=== PATIENT | female | born 1975 | race Caucasian/White ===

== ENCOUNTER 2020-06-01 12:15 | Outpatient (CLI) | payer MEDICAID | END 2020-06-01 12:16 | disposition home or self-care (01) | LOC: COV 12:15 | PROVIDERS: ATTEND Family Medicine | DX: U07.1 COVID-19 (principal) ==

== ENCOUNTER 2020-06-04 14:25 | Emergency (ER) | payer MEDICAID ==
--- NOTE | 2020-06-04 14:31 | ED Physician Documentation ---
PD HPI FEMALE - Stated complaint Stated Complaint: FEMALE - History obtained from History obtained from: Patient - History of Present Illness Timing - onset: How many days ago (2) Timing - duration: Days (2) Timing - details: Gradual onset, Still present Associated symptoms: Fever (subjective last night), Other (has had cough for 4 days. Got COVID tested and positive result 3 days ago.) Contributing factors: Other (visiting her boyfriend; flew in 7 days ago, with cough 4 days ago and now dysuria 2 days.). No: Similar symptoms before: Diagnosis (prior UTIs. Has history of polycystic kidney disease with impaired renal function, baseline GFR 35-45?) Recently seen: Not recently seen Review of Systems Constitutional: reports: Fever, Chills Nose: denies: Rhinorrhea / runny nose, Congestion Throat: denies: Sore throat Cardiac: denies: Chest pain / pressure Respiratory: reports: Cough. denies: Dyspnea, Wheezing GI: reports: Nausea. denies: Abdominal Pain, Vomiting, Diarrhea : reports: Dysuria, Frequency. denies: Discharge Skin: denies: Rash Neurologic: denies: Altered mental status, Headache PD PAST MEDICAL HISTORY - Past Medical History Cardiovascular: None Respiratory: None : Other (polycystic kidneys) - Present Medications Home Medications: Ambulatory Orders Medication Instructions Recorded Confirmed Cephalexin [Keflex] 500 mg PO Q6H #28 capsule 06/04/20 Ondansetron Odt [Zofran] 4 mg TL Q6H PRN #10 tablet 06/04/20 - Allergies Allergies/Adverse Reactions: Allergies Allergy/AdvReac Type Severity Reaction Status Date / Time Latex, Natural Rubber Allergy Itching Verified 06/04/20 14:31 - Living Situation Living Situation: reports: Alone Living Arrangement: reports: Other (lives in [place] and visiting her boyfriend. Flew in 1 week ago. [place] okay prior to travel and the first few days here. ) PD ED PE NORMAL - Vitals Vital signs reviewed: Yes - General General: Alert and oriented X 3, No acute distress, Well developed/nourished - HEENT HEENT: Moist mucous membranes, Pharynx benign - Neck Neck: Supple, no meningeal sign, No adenopathy - Cardiac Cardiac: RRR (mild tachycardia. Sats good. ), No murmur - Respiratory Respiratory: Clear bilaterally - Abdomen Abdomen: Normal bowel sounds, Soft, Non tender, Non distended - Back Back: No CVA TTP - Derm Derm: Normal color, Warm and dry - Extremities Extremities: No tenderness to palpate, Normal ROM s pain, No edema, No calf tenderness / cord - Neuro Neuro: Alert and oriented X 3, No motor deficit, Normal speech Results - Vitals Vitals: Vital Signs - 24 hr 06/04/20 06/04/20 14:31 16:28 Temperature 37.6 C H Heart Rate 106 H 92 Respiratory 16 18 Rate Blood Pressure 136/98 H 149/98 H O2 Saturation 97 98 Oxygen O2 Source Room air - Labs Labs: Laboratory Tests 06/04/20 06/04/20 06/04/20 14:45 15:35 15:35 WBC 11.6 H RBC 4.50 Hgb 12.3 Hct 38.5 MCV 85.6 MCH 27.3 MCHC 31.9 L RDW 15.3 H Plt Count 222 MPV 10.1 Neut # (Auto) 9.4 H Lymph # (Auto) 1.4 L [place] # (Auto) 0.8 Eos # (Auto) 0.0 Baso # (Auto) 0.1 Absolute Nucleated RBC 0.00 Nucleated RBC % 0.0 Sodium 135 Potassium 3.7 Chloride 100 L Carbon Dioxide 24 Anion Gap 11.0 BUN 17 Creatinine 1.3 H Estimated GFR (MDRD) 44 L Glucose 135 H Calcium 9.4 Urine Color YELLOW Urine Clarity CLOUDY Urine pH 6.0 Ur Specific [place] 1.020 Urine Protein >=300 H Urine Glucose (UA) NEGATIVE Urine Ketones NEGATIVE Urine Occult Blood LARGE H Urine Nitrite POSITIVE H Urine Bilirubin NEGATIVE Urine Urobilinogen 0.2 (NORMAL) Ur Leukocyte Esterase LARGE H Urine RBC 0-5 Urine WBC >25 H Ur Squamous Epith Cells NONE SEEN Urine Bacteria Moderate H Ur Microscopic Review INDICATED Urine Culture Comments INDICATED PD MEDICAL DECISION MAKING - ED course Complexity details: considered differential, d/w patient Departure - Departure Disposition: 01 Home, Self Care Clinical Impression: Dysuria, UTI (urinary tract infection) Condition: Stable Record reviewed to determine appropriate education?: Yes Instructions: ED UTI Cystitis Female Prescriptions: Cephalexin [Keflex] 500 mg PO Q6H #28 capsule Ondansetron Odt [Zofran] 4 mg TL Q6H PRN #10 tablet PRN Reason: Nausea / Vomiting Comments: Your urine does show signs of infection and so is consistent with your symptoms. Your kidney function is that sounding far off from your baseline. Stay well- hydrated. Cephalexin antibiotic 4 times a day for a week for the infection. Tylenol if needed for fevers or pains. Add ondansetron if needed for nausea. Your oxygenation is good and your lungs sound clear so no signs of pneumonia at this time. The urine and vaginal cultures will result in a couple of days and will call if we need to change the antibiotic choice. Recheck if not improving well over the next couple of days. Return sooner if worsening. Discharge Date/Time: 06/04/20 16:29
[2020-06-04 15:01] LABS: BILIRUBIN,URINE NEGATIVE (NEGATIVE); GLUCOSE, URINE (UA) NEGATIVE (NEGATIVE); KETONES,URINE (UA) NEGATIVE (NEGATIVE); LEUKOCYTE ESTERASE, URINE LARGE (NEGATIVE); NITRITE,URINE POSITIVE (NEGATIVE); OCCULT BLOOD,URINE LARGE (NEGATIVE); PROTEIN,URINE >=300 mg/dL (NEGATIVE); UROBILINOGEN,URINE 0.2 (NORMAL) E.U./dL (NORMAL)
[2020-06-04 15:02] LABS: CLARITY,URINE CLOUDY (CLEAR)
[2020-06-04] MEDS ORDERED: ACETAMINOPHEN 325 MG TABLET PO STA (15:10)
[2020-06-04] MEDS ORDERED: cephALEXin 250 MG CAPSULE PO STA (15:10)
[2020-06-04 15:20] LABS: BACTERIA,URINE Moderate /HPF (None Seen); RBC,URINE 0-5 /HPF (0-5); SQUAMOUS EPITHELIAL CELL,UR NONE SEEN (<= Few)
[2020-06-04 15:43] LABS: BASOPHILS # (AUTO) 0.1 10^3/uL (0.0-0.1); BASOPHILS % (AUTO) 0.4 %; EOSINOPHILS % (AUTO) 0.1 %; HGB - HEMOGLOBIN 12.3 g/dL (12.0-16.0); LYMPHOCYTES # (AUTO) 1.4 10^3/uL (1.5-3.5); LYMPHOCYTES % (AUTO) 11.7 %; MEAN CORPUSCULAR HEMOGLOBIN 27.3 pg (27.0-31.0); MEAN CORPUSCULAR HGB CONC 31.9 g/dL (32.0-36.0); MEAN CORPUSCULAR VOLUME 85.6 fL (81.0-99.0); MEAN PLATELET VOLUME 10.1 fL (7.9-10.8); MONOCYTES # (AUTO) 0.8 10^3/uL (0.0-1.0); MONOCYTES % (AUTO) 6.6 %; NEUTROPHILS # (AUTO) 9.4 10^3/uL (1.5-6.6); NEUTROPHILS % (AUTO) 80.7 %; PLT - PLATELET COUNT 222 10^3/uL (130-450); RED CELL DISTRIBUTION WIDTH 15.3 % (12.0-15.0); WHITE BLOOD COUNT 11.6 x10^3/uL (4.8-10.8)
[2020-06-04 15:52] LABS: CALCIUM 9.4 mg/dL (8.5-10.3); CREATININE 1.3 mg/dL (0.4-1.0)
[2020-06-04 16:29] VITALS: BP 149/98
== END 2020-06-04 16:29 | disposition home or self-care (01) ==
LOC: ED 14:25
DX: N39.0 Urinary tract infection, site not specified (principal)
CPT/HCPCS: 36415; 80048; 81001; 85025; 87086; 87181; 99283; A9270; 81003; 87491; 87591; 87661; 87801

== ENCOUNTER 2020-06-09 16:39 | Inpatient (IN) | payer MEDICAID ==
[2020-06-09] MEDS ORDERED: SODIUM CHLORIDE 0.9% 1,000 ML IV STA ×2 (18:53→19:18)
--- NOTE | 2020-06-09 18:53 | ED Physician Documentation ---
History of Present Illness - Stated complaint Stated Complaint: RT FLANK PX - Chief complaint Chief Complaint: Abd Pain - History obtained from History obtained from: Patient - Additonal information Additional information: 44-year-old female presents to the emergency department for evaluation of worsening right flank pain. She was unfortunately diagnosed with COVID-19 on 01 June. She presented to this emergency department on 04 June and was diagnosed with a urinary tract infection. She was started on Keflex twice daily which she has been taking. Urine culture grew a pansensitive E. coli. Patient reports that over the last 24 hours she feels that her urinary symptoms have started to worsen with pain in the right flank. She is concerned that she may be developing pyelonephritis. She has had intermittent fevers. T-max of 38 0 here in the emergency department. She is had some nausea but no vomiting or diarrhea. Review of Systems Constitutional: reports: Fever, Chills, Myalgias Eyes: reports: Reviewed and negative Ears: reports: Reviewed and negative Nose: reports: Reviewed and negative Throat: reports: Reviewed and negative Cardiac: reports: Reviewed and negative Respiratory: reports: Cough. denies: Dyspnea, Hemoptysis, Wheezing GI: reports: Abdominal Pain. 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) HEENT: None - Present Medications Home Medications: Ambulatory Orders Medication Instructions Recorded Confirmed Cephalexin [Keflex] 500 mg PO Q6H #28 capsule 06/04/20 Ondansetron Odt [Zofran] 4 mg TL Q6H PRN #10 tablet 06/04/20 - Allergies Allergies/Adverse Reactions: Allergies Allergy/AdvReac Type Severity Reaction Status Date / Time Latex, Natural Rubber Allergy Itching Verified 06/04/20 14:31 Ringer's solution,lactated Allergy Unknown Verified 06/09/20 16:55 - Social History Does the pt smoke?: No Smoking Status: Never smoker PD ED PE EXPANDED - General General: Alert, No acute distress - Neck Neck: Supple w/out meningeal sx. No: Adenopathy, Soft tissue TTP - Cardiac Cardiac: Regular Rate, Radial strong equal, Cap refill < 2 sec. No: Murmur Present - Abdomen Abdomen: Normal Bowel sounds, Tender to palpation (Right flank tenderness without guarding or rebound. Negative Zimmerman's negative McBurney's. No CVA tenderness) - Back Back: Normal exam, Soft tissue tenderness. No: Vertebral tenderness, CVA TTP right, CVA TTP left - Derm Derm: Normal color. No: Rash, Petecchiae, Purpura - Extremities Extremities: Normal - Neuro Neuro: Alert and Oriented X 3, CNII-XII intact - GCS Eye Opening: Spontaneous Motor: Obeys Commands Verbal: Oriented Total: 15 Results - Vitals Vitals: Vital Signs - 24 hr 06/09/20 06/09/20 06/09/20 16:51 18:49 20:00 Temperature 36.1 C L 38.0 C H Heart Rate 104 H 100 97 Respiratory 16 18 18 Rate Blood Pressure 127/75 155/98 H 125/74 O2 Saturation 98 100 100 06/09/20 21:15 Temperature 38.6 C H Heart Rate 99 Respiratory 18 Rate Blood Pressure 126/79 O2 Saturation 100 Oxygen O2 Source Room air - Labs Labs: Laboratory Tests 06/09/20 06/09/20 06/09/20 18:36 18:36 18:45 WBC 13.7 H RBC 4.34 Hgb 12.2 Hct 36.8 L MCV 84.8 MCH 28.1 MCHC 33.2 RDW 14.6 Plt Count 258 MPV 10.0 Neut # (Auto) 10.8 H Lymph # (Auto) 1.8 [place] # (Auto) 0.9 Eos # (Auto) 0.0 Baso # (Auto) 0.1 Absolute Nucleated RBC 0.00 Nucleated RBC % 0.0 Sodium Potassium Chloride Carbon Dioxide Anion Gap BUN Creatinine Estimated GFR (MDRD) Glucose Calcium Total Bilirubin AST ALT Alkaline Phosphatase Total Protein Albumin Globulin Albumin/Globulin Ratio Lipase Urine Color YELLOW Urine Clarity HAZY Urine pH 6.0 Ur Specific [place] 1.010 1.010 Urine Protein 100 H Urine Glucose (UA) NEGATIVE Urine Ketones NEGATIVE Urine Occult Blood LARGE H Urine Nitrite NEGATIVE Urine Bilirubin NEGATIVE Urine Urobilinogen 0.2 (NORMAL) Ur Leukocyte Esterase LARGE H Urine RBC 11-25 H Urine WBC 6-10 H Ur Squamous Epith Cells RARE Squamous Urine Bacteria Rare Ur Microscopic Review INDICATED Urine Culture Comments INDICATED Urine HCG, Qual NEGATIVE 06/09/20 18:45 WBC RBC Hgb Hct MCV MCH MCHC RDW Plt Count MPV Neut # (Auto) Lymph # (Auto) [place] # (Auto) Eos # (Auto) Baso # (Auto) Absolute Nucleated RBC Nucleated RBC % Sodium 135 Potassium 3.6 Chloride 99 L Carbon Dioxide 23 Anion Gap 13.0 BUN 18 Creatinine 1.5 H Estimated GFR (MDRD) 37 L Glucose 111 H Calcium 8.9 Total Bilirubin 0.9 AST 35 ALT 40 Alkaline Phosphatase 75 Total Protein 7.8 Albumin 3.8 Globulin 4.0 Albumin/Globulin Ratio 1.0 Lipase 24 Urine Color Urine Clarity Urine pH Ur Specific [place]ine Urine Protein Urine Glucose (UA) Urine Ketones Urine Occult Blood Urine Nitrite Urine Bilirubin Urine Urobilinogen Ur Leukocyte Esterase Urine RBC Urine WBC Ur Squamous Epith Cells Urine Bacteria Ur Microscopic Review Urine Culture Comments Urine HCG, Qual - Rads (name of study) CT abd Radiology: Final report received (Polycystic renal disease. No hydronephrosis or obstructing nephrolithiasis, however periureteral fat stranding seen at the superior right ureter.) PD MEDICAL DECISION MAKING - ED course Complexity details: reviewed results, re-evaluated patient, considered differential, d/w patient ED course: 44-year-old female return to the emergency department with worsening fever right flank pain. This is in the setting of a recently diagnosed urinary tract infection as well as Covid 19. On repeat laboratory evaluation she has mild increase in her white blood cell count to 13.7 thousand today. Though her urine looks improved from the standpoint of infection, there is increased red blood cells and protein. At this time we will proceed with a CT noncontrast of her abdomen to rule out an infected renal stone. We will also give her 1 L of IV f luid for mild increase in her creatinine as well as give her IV ceftriaxone. 2145: CT scan has been completed. It does not show any obvious obstructing stones. However there is some fat stranding at the right superior ureter. This may represent a recently passed stone. While the patient has been here in the emergency department she has remained febrile and with rigors. This case was discussed with the hospitalist Dr. Alfaro. We will bring her in for further care and evaluation. Blood cultures and a lactic acid are pending. She has remained normotensive and without tachycardia. She does not appear to be in septic shock. She has previously been on antibiotics with Keflex for the last 4 days and did receive ceftriaxone earlier in her visit today. Departure - Departure Disposition: 66 [facility] DC/Xfer Clinical Impression: Pyelonephritis, Polycystic kidney disease, COVID-19
[2020-06-09 18:54] LABS: BILIRUBIN,URINE NEGATIVE (NEGATIVE); GLUCOSE, URINE (UA) NEGATIVE (NEGATIVE); KETONES,URINE (UA) NEGATIVE (NEGATIVE); LEUKOCYTE ESTERASE, URINE LARGE (NEGATIVE); NITRITE,URINE NEGATIVE (NEGATIVE); OCCULT BLOOD,URINE LARGE (NEGATIVE); PROTEIN,URINE 100 mg/dL (NEGATIVE); UROBILINOGEN,URINE 0.2 (NORMAL) E.U./dL (NORMAL)
[2020-06-09 18:55] LABS: BASOPHILS # (AUTO) 0.1 10^3/uL (0.0-0.1); BASOPHILS % (AUTO) 0.4 %; EOSINOPHILS % (AUTO) 0.1 %; HGB - HEMOGLOBIN 12.2 g/dL (12.0-16.0); LYMPHOCYTES # (AUTO) 1.8 10^3/uL (1.5-3.5); LYMPHOCYTES % (AUTO) 13.5 %; MEAN CORPUSCULAR HEMOGLOBIN 28.1 pg (27.0-31.0); MEAN CORPUSCULAR HGB CONC 33.2 g/dL (32.0-36.0); MEAN CORPUSCULAR VOLUME 84.8 fL (81.0-99.0); MONOCYTES # (AUTO) 0.9 10^3/uL (0.0-1.0); MONOCYTES % (AUTO) 6.2 %; NEUTROPHILS # (AUTO) 10.8 10^3/uL (1.5-6.6); NEUTROPHILS % (AUTO) 79.3 %; PLT - PLATELET COUNT 258 10^3/uL (130-450); RED BLOOD COUNT 4.34 10^6/uL (4.20-5.40); RED CELL DISTRIBUTION WIDTH 14.6 % (12.0-15.0); WHITE BLOOD COUNT 13.7 x10^3/uL (4.8-10.8)
[2020-06-09 18:56] LABS: CLARITY,URINE HAZY (CLEAR)
[2020-06-09 19:05] LABS: BACTERIA,URINE Rare /HPF (None Seen); HCG UR QUAL NEGATIVE; SQUAMOUS EPITHELIAL CELL,UR RARE Squamous (<= Few)
[2020-06-09 19:08] LABS: ALBUMIN 3.8 g/dL (3.2-5.5); BILIRUBIN,TOTAL 0.9 mg/dL (0.2-1.0); CALCIUM 8.9 mg/dL (8.5-10.3); CREATININE 1.5 mg/dL (0.4-1.0); TOTAL PROTEIN 7.8 g/dL (6.7-8.2)
[2020-06-09] MEDS ORDERED: cefTRIAXone 1 GM in SODIUM CHLORIDE 0.9% MINIBAG 100 ML IV STA (19:16)
[2020-06-09] MEDS ORDERED: cefTRIAXone 1 GM VIAL ONE (19:42)
[2020-06-09] MEDS ORDERED: ACETAMINOPHEN 325 MG TABLET PO STA (21:26)
--- NOTE | 2020-06-09 21:35 | CT Report ---
PROCEDURE: Abdomen/Pelvis WO INDICATIONS: right flank pain; r/o infected stone TECHNIQUE: Noncontrast 5 mm thick sections acquired from the diaphragms to the symphysis. 5 mm coronal and sagi ttal reformats were then performed. For radiation dose reduction, the following was used: automated exposure control, adjustment of mA and/or kV according to patient size. COMPARISON: None. FINDINGS: Image quality: Excellent. ABDOMEN: Lung bases: Mild airspace opacities are present at the right lung base. The lung bases are otherwise clear. Heart size is normal. Solid organs: Liver and spleen are normal in size. Gallbladder is unremarkable. Pancreas is normal in contours. No adrenal nodules. The bilateral kidneys are markedly enlarged and filled with low de nsity cystic lesions consistent with the given diagnosis of polycystic renal disease. Punctate calcif ications are noted throughout suggesting nonobstructing calculi or parenchymal calcifications. No hyd ronephrosis. No hydroureter; however there is mild periureteral fat stranding around the superior asp ect of the right ureter. Peritoneum and bowel: Unenhanced bowel loops demonstrate normal wall thickness and caliber. The appe ndix is thin-walled and gas-filled. No free fluid or air. Nodes and vessels: No retroperitoneal or mesenteric adenopathy by size criteria. Aorta and inferior vena cava are normal in caliber. Miscellaneous: No ventral hernias. PELVIS: Genitourinary: Bladder wall thickness is normal. No bladder calculi. Uterus and ovaries are grossly unremarkable. Miscellaneous: No inguinal hernias or adenopathy. Bones: No suspicious bony lesions. No vertebral body compression fractures. IMPRESSION: 1. Polycystic renal disease as above. 2. No hydronephrosis or obstructive nephrolithiasis; however periureteral fat stranding is present at the superior right ureter. The significance of this finding is unclear. Differential co nsiderations include recently passed calculus versus early infection. There are no bladder calculi to suggest recently passed stone. Please correlate with urinalysis. The bladder is thin-walled without findings to suggest acute cystitis. 3. No other acute intra-abdominal findings. Normal appendix. 4. Trace radiopacities within the right lung base. Differential considerations include atelectasis, a spiration, and infection. Reviewed by: Andra Jose MD on 06/09/2020 9:34 PM PST Approved by: Andra Jose MD on 06/09/2020 9:34 PM PST Station ID: [id number]
[2020-06-09] MEDS ORDERED: ONDANSETRON 4 MG/2 ML VIAL IVP PRN (21:53)
[2020-06-09] MEDS ORDERED: SODIUM CHLORIDE FLUSH 0.9% 10 ML SYRINGE IVP PRN (21:53)
--- NOTE | 2020-06-09 21:58 | HISTORY & PHYSICAL EXAMINATION ---
Chief Complaint - Chief Complaint Chief Complaint: Fever, right flank pain, UTI History of Present Illness - [facility] - History Obtained From Records Reviewed: Yes History obtained from: Patient - History of Present Illness HPI Comment/Other: Patient is a 44-year-old female with medical history significant for factor V Leiden, hypertension, and polycystic kidney disease who presented to the ED today with fever and right flank pain. She is visiting the area. 1 week ago she had presented to the emergency room with complaint of burning on urination, increased urinary frequency. She was diagnosed with a UTI which was subsequently confirmed by urinary cultures to be due to E. coli which was pansensitive. The patient was placed on Keflex and advised to return to the ED if her symptoms were not improving. She had taken Keflex for 4 days. On a separate note she was also diagnosed with Covid last week. Her symptoms have mostly been coughing and anosmia/ loss of appetite. She denies difficulty in breathing. At a follow-up call by the health department worker, she reported having a fever and has symptoms of UTI persisting. She was advised to go to the ED for evaluation. Upon presentation to the ED she was found to have a temperature of 38.6 C, white blood cell count of 13.7 and a UA which was indicative of a UTI. She also had a CT of the abdomen pelvis without contrast which showed some periureteral fat stranding on the right. As a result the patient was presented for admission for further treatment. At bedside currently she is resting comfortably. She denies chest pain, dyspne a, nausea, vomiting. She reports the right flank pain and fever. The rest of her history is unremarkable. 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 He also had factor V Leiden and DVT. Patient's mother has CLL Living Situation: Alone Social History Notes: Patient does not use tobacco products.. She rarely drinks alcohol. Generally she would use CBD or Meds/Allgy - Home Medications Home Medications: Ambulatory Orders Medication Instructions Recorded Confirmed Cephalexin [Keflex] 500 mg PO Q6H #28 capsule 06/04/20 Ondansetron Odt [Zofran] 4 mg TL Q6H PRN #10 tablet 06/04/20 - Allergies Allergies/Adverse Reactions: Allergies Allergy/AdvReac Type Severity Reaction Status Date / Time Latex, Natural Rubber Allergy Itching Verified 06/04/20 14:31 Ringer's solution,lactated Allergy Unknown Verified 06/09/20 16:55 Review of Systems - Constitutional Constitutional: reports: Fever, Poor appetite - Eyes Eyes: denies: Pain, Dipolpia - Ears, Nose & Throat Ears, Nose & Throat: reports: Other (anosmia) - Cardiovascular Cariovascular: denies: Irregular heart rate, Palpitations, Chest pain, Edema, Lightheadedness, Syncope, Exertional dyspnea - Respiratory Respiratory: reports: Cough. denies: Sputum production, Wheezing, SOB at rest, SOB with exertion - Gastrointestinal Gastrointestinal: denies: Abdominal pain, Nausea, Vomiting - Genitourinary Genitourinary: reports: Dysuria, Frequency, Hematuria, Incontinence, Flank pain (right) - Musculoskeletal Musculoskeletal: denies: Muscle pain, Back pain, Muscle aches - Integumentary Integumentary: denies: Rash, Pruritis, Lesions - Neurological Neurological: denies: General weakness, Focal weakness, Headache, Dizziness - Endocrine Endocrine: denies: Polyuria, Polydypsia - Hematologic/Lymphatic Hematologic/Lymphatic: denies: Anemia, Bruising, Petechiae Prior Level of Functionality: Patient is independent of activities of daily living Exam - Vital Signs Vital Signs: Vital Signs x48h Temp Pulse Resp BP Pulse Ox 06/09/20 21:15 38.6 C H 99 18 126/79 100 06/09/20 20:00 97 18 125/74 100 06/09/20 18:49 38.0 C H 100 18 155/98 H 100 06/09/20 16:51 36.1 C L 104 H 16 127/75 98 - Physical Exam General Appearance: positive: No acute distress, Alert Eyes Bilateral: positive: PERRL, EOMI ENT: positive: No signs of dehydration Neck: positive: No JVD, Trachea midline Respiratory: positive: Chest non-tender, No respiratory distress, Breath sounds nml. negative: Wheezes, Rales, Rhonchi Cardiovascular: positive: Regular rate & rhythm Abdomen: positive: Non-tender, No organomegaly, Nml bowel sounds, No distention. negative: Guarding, Rebound Back: positive: Nml inspection Skin: positive: Color nml, No rash, Warm, Dry Extremities: positive: Non-tender, Full ROM, Nml appearance, No pedal edema Neurologic/Psychiatric: positive: Oriented x3, Mood/affect nml Conclusion/Plan - Problem List (1) Pyelonephritis Conclusion/Plan: Urine cultures done on June 04, 2020 grew E. coli which was pansensitive. Patient has failed 4 days of Keflex. Patient was started on Rocephin 1 g IV. We will continue daily. Blood and urine cultures pending. CT of the abdomen pelvis without contrast showed some periureteral fat stranding on the right side. (2) Acute kidney injury Conclusion/Plan: It is unclear if this is strictly an acute presentation versus an acute on chronic presentation. The patient has polycystic kidney disease. Her creatinine is 1.5 with an estimated GFR of 37. Patient is receiving IV hydration and antibiotics. Anticipate improvement in patient's renal function. We will continue to monitor. (3) COVID-19 Conclusion/Plan: Improving. Patient does not have hypoxia or dyspnea. Her main complaints are of anosmia, decreased appetite as a result of anosmia and a persistent cough. She does not require oxygen and is not on any medications. We will continue to monitor. (4) Factor V Leiden Conclusion/Plan: Patient is not on any anticoagulant. SCDs used during this admission for DVT prophylaxis. Holding off on administering Lovenox because there was significant amount of red blood cells in the patient's urine analysis. There is significant concern for bleeding considering her polycystic kidney disease Liver in light of patient's Covid 19 diagnosis to she is a likely candidate for anticoagulation for DVT prophylaxis upon discharge. (5) Hypertension Conclusion/Plan: Amlodipine 5 mg p.o. daily ordered. - Lab Results Fish Bones: 06/09/20 18:45 06/09/20 18:45 Core Measures - Anticipated LOS I expect patient to be DC'd or transferred within 96 hours.: Yes - DVT/VTE - Prophylaxis VTE/DVT Device ordered at admit?: Yes VTE/DVT Prophylaxis med ordered at admit?: No
[2020-06-09] MEDS: SODIUM CHLORIDE 0.9% 1,000 ML IV SCH (22:56)
[2020-06-10] MEDS: SODIUM CHLORIDE FLUSH 0.9% 10 ML SYRINGE IVP SCH ×3 (01:56→15:32)
[2020-06-10] MEDS: ACETAMINOPHEN 325 MG TABLET PO PRN ×4 (01:59→17:21)
[2020-06-10 05:36] LABS: BASOPHILS % (AUTO) 0.3 %; EOSINOPHILS % (AUTO) 0.1 %; HGB - HEMOGLOBIN 10.4 g/dL (12.0-16.0); LYMPHOCYTES # (AUTO) 1.9 10^3/uL (1.5-3.5); LYMPHOCYTES % (AUTO) 17.8 %; MEAN CORPUSCULAR HEMOGLOBIN 27.2 pg (27.0-31.0); MEAN CORPUSCULAR VOLUME 87.7 fL (81.0-99.0); MEAN PLATELET VOLUME 9.9 fL (7.9-10.8); MONOCYTES # (AUTO) 0.7 10^3/uL (0.0-1.0); MONOCYTES % (AUTO) 6.1 %; NEUTROPHILS # (AUTO) 8.1 10^3/uL (1.5-6.6); NEUTROPHILS % (AUTO) 75.2 %; PLT - PLATELET COUNT 192 10^3/uL (130-450); RED BLOOD COUNT 3.83 10^6/uL (4.20-5.40); RED CELL DISTRIBUTION WIDTH 14.7 % (12.0-15.0); WHITE BLOOD COUNT 10.8 x10^3/uL (4.8-10.8)
[2020-06-10 05:45] LABS: CREATININE 1.3 mg/dL (0.4-1.0)
[2020-06-10] MEDS: PANTOPRAZOLE 40 MG TABLET PO SCH (06:07)
[2020-06-10] MEDS: SODIUM CHLORIDE 0.9% 1,000 ML IV SCH ×3 (06:08→21:31)
[2020-06-10] MEDS: DOCUSATE SODIUM 250 MG CAPSULE PO SCH (08:22)
[2020-06-10] MEDS: amLODIPine 5 MG TABLET PO SCH (08:22)
[2020-06-10] MEDS: cefTRIAXone 1 GM in SODIUM CHLORIDE 0.9% MINIBAG 100 ML IV SCH (08:23)
[2020-06-10] MEDS: polyethylene glycoL 3350 17 GM PACKET PO SCH (08:24)
[2020-06-10] MEDS: SENNA 8.6 MG TABLET PO SCH (09:27)
--- NOTE | 2020-06-10 11:37 | PHARMACY PROGRESS NOTE ---
- Best Possible Medication History Admit Date and Time: 06/09/20 1692 Processed by: Pharmacy Medication History completed: Yes Patient Interview: Completed (PATIENT INTERVIEWED BY NURSING. PATIENT ABLE TO CONFIRM HOME MEDICATIONS) As the person ultimately responsible for medication therapy, providers are able to order a medication from an existing home medication list in [facility] via the "Reconcile Routine" prior to Confirmation of that medication by lab support tech. Such practice is discouraged except when the physician, in their clinical judgment, deems that a medical need exists for a medication without regard to previous use.
--- NOTE | 2020-06-10 13:49 | PROVIDER PROGRESS NOTE ---
Assessment/Plan - Problem List (1) Pyelonephritis Assessment/Plan: Urine cultures done as an outpt on June 04, 2020 grew E. coli which was pansensitive. Patient has failed [address] of the abdomen pelvis without contrast showed some periureteral fat stranding on the right side. Here, she was started on Rocephin 1 g IV daily. Her last fever was yesterday afternoon. Her flank pain has improved (and she also thinks she may have passed a stone). The white blood count has improved from 13-10 Await results of blood and urine cultures, which are pending. (2) COVID-19 Assessment/Plan: She thinks she caught it on the airplane from a person who took off his mask and was coughing She feels she is improving. Patient does not have hypoxia or dyspnea, she had a minimal cough and no extreme fatigue. Her main complaints are of anosmia, decreased appetite as a result of anosmia. She does not require oxygen and is not on any medications. We will continue to monitor and continue infection isolation order. Will resume her as needed MDI inhaler order. Will start 1 baby aspirin daily, for the increased thrombi that develop with COVID and especially since she has Factor V Leiden Dx. (3) Acute kidney injury Assessment/Plan: It is unclear if this is strictly an acute presentation versus an acute on chronic presentation. The patient has polycystic kidney disease. Her creatinine is 1.5 with an estimated GFR of 37. Patient is receiving IV hydration and antibiotics. Anticipate improvement in patient's renal function. Avoid nephrotoxins. We will continue to monitor BMP daily. (4) Factor V Leiden Assessment/Plan: As per history. She is on no anticoagulants or antiplatelet agents chronically. Will start her on 1 baby aspirin daily, especially during her COVID infection, since COVID is associated with increased thrombi formation. Continue SCDs for DVT prophylaxis. (5) Polycystic kidney disease Assessment/Plan: This is usually associated with obesity, high testosterone and hirsutism. She may have elevated creatinine chronically as well, but we have no old records for comparison. We will resume her med for overactive bladder (trospium). (6) Anemia Assessment/Plan: Hemoglobin dropped from 13 yesterday to 10 today, it is probably hemodilutional. Follow CBC daily. (7) Hypertension Assessment/Plan: Will resume her Amlodipine med - Current Meds Current Meds: Current Medications Generic Name Dose Route Start Last Admin Trade Name Carina PRN Reason Stop Dose Admin Acetaminophen 650 mg 06/09/20 21:53 06/10/20 13:34 Tylenol PO 650 mg Q4HR PRN Administration Pain 1 to 4 Amlodipine Besylate 5 mg 06/10/20 09:00 06/10/20 08:22 Norvasc PO Not Given DAILY TABITHA Docusate Sodium 250 - 500 mg 06/10/20 09:00 06/10/20 08:22 Colace 250mg Capsule PO 250 mg DAILY TABITHA Administration Sodium Chloride 1,000 mls @ 125 mls/hr 06/09/20 22:00 06/10/20 13:35 Normal Saline 0.9% IV 125 mls/hr .Q8H TABITHA Administration Ceftriaxone Sodium 1 gm/ 100 mls @ 200 mls/hr 06/10/20 09:00 06/10/20 09:26 Sodium Chloride IV Infused DAILY TABITHA Infusion Pantoprazole Sodium 40 mg 06/10/20 07:00 06/10/20 06:07 Protonix PO 40 mg QDAC TABITHA Administration Polyethylene Glycol 17 gm 06/10/20 09:00 06/10/20 08:24 Miralax PO 17 gm DAILY TABITHA Administration Senna 8.6 - 17.2 mg 06/10/20 09:00 06/10/20 09:27 Senokot PO Not Given DAILY TABITHA Sodium Chloride 10 ml 06/09/20 21:53 06/09/20 22:56 Normal Saline Flush 0.9% IVP 10 ml PRN PRN Administration NEEDED PER PROVIDER ORDERS Sodium Chloride 10 ml 06/10/20 01:00 06/10/20 09:27 Normal Saline Flush 0.9% IVP Not Given 0100,0900,1700 TABITHA - Lab Result Fish Bone Diagrams: 06/10/20 05:33 06/10/20 05:33 - Additional Planning My Orders: My Active Orders 06/10/20 09:00 Docusate Sodium 250Mg Capsule [Colace 250Mg Capsule] 250 - 500 mg PO DAILY Senna [Senokot] 8.6 - 17.2 mg PO DAILY polyethylene glycoL 3350 [Miralax] 17 gm PO DAILY 06/10/20 13:41 Albuterol Sulfate [Proair Hfa Inhaler] 2 puffs PO PRN PRN 06/10/20 14:00 methocarbamoL [Robaxin] 500 mg PO TID 06/10/20 21:00 Trospium Chloride [Trospium Chloride] 20 mg PO BID Subjective - Subjective Patient Reports: Feeling Better, Resting Comfortably Objective Vital Signs: Vital Signs - 24 hr 06/09/20 06/09/20 06/09/20 16:51 18:49 20:00 Temperature 36.1 C L 38.0 C H Heart Rate 104 H 100 97 Heart Rate [ Brachial] Respiratory 16 18 18 Rate Blood Pressure 127/75 155/98 H 125/74 Blood Pressure [Left Brachial artery] O2 Saturation 98 100 100 06/09/20 06/09/20 06/10/20 21:15 22:49 01:58 Temperature 38.6 C H 38.0 C H 37.4 C Heart Rate 99 Heart Rate [ 102 H Brachial] Respiratory 18 15 Rate Blood Pressure 126/79 Blood Pressure 130/71 [Left Brachial artery] O2 Saturation 100 97 06/10/20 08:00 Temperature 36.2 C L Heart Rate Heart Rate [ 85 Brachial] Respiratory 18 Rate Blood Pressure Blood Pressure 123/59 L [Left Brachial artery] O2 Saturation 96 Oxygen O2 Source Room air I&O (Last 24 Hrs): Intake and Output Totals x24h 06/08/20 06/09/20 06/10/20 23:59 23:59 23:59 Intake Total 1100 1931.250 Output Total 950 Balance 1100 981.250 General: Alert, Oriented x3 HEENT: Mucous membr. moist/pink Neck: Supple Neuro: Alert, Non Focal Cardiovascular: Regular rate Respiratory: No respiratory distress Abdomen: Soft Extremities: No edema - Results Results: Laboratory Results WBC 10.8 x10^3/uL (4.8-10.8) 06/10/20 05:33 RBC 3.83 10^6/uL (4.20-5.40) L 06/10/20 05:33 Hgb 10.4 g/dL (12.0-16.0) L 06/10/20 05:33 Hct 33.6 % (37.0-47.0) L 06/10/20 05:33 MCV 87.7 fL (81.0-99.0) 06/10/20 05:33 MCH 27.2 pg (27.0-31.0) 06/10/20 05:33 MCHC 31.0 g/dL (32.0-36.0) L 06/10/20 05:33 RDW 14.7 % (12.0-15.0) 06/10/20 05:33 Plt Count 192 10^3/uL (130-450) 06/10/20 05:33 MPV 9.9 fL (7.9-10.8) 06/10/20 05:33 Neut # (Auto) 8.1 10^3/uL (1.5-6.6) H 06/10/20 05:33 Lymph # (Auto) 1.9 10^3/uL (1.5-3.5) 06/10/20 05:33 [place] # (Auto) 0.7 10^3/uL (0.0-1.0) 06/10/20 05:33 Eos # (Auto) 0.0 10^3/uL (0.0-0.7) 06/10/20 05:33 Baso # (Auto) 0.0 10^3/uL (0.0-0.1) 06/10/20 05:33 Absolute Nucleated RBC 0.00 x10^3/uL 06/10/20 05:33 Nucleated RBC % 0.0 /100WBC 06/10/20 05:33 Sodium 138 mmol/L (135-145) 06/10/20 05:33 Potassium 3.5 mmol/L (3.5-5.0) 06/10/20 05:33 Chloride 106 mmol/L (101-111) 06/10/20 05:33 Carbon Dioxide 19 mmol/L (21-32) L 06/10/20 05:33 Anion Gap 13.0 (6-13) 06/10/20 05:33 BUN 15 mg/dL (6-20) 06/10/20 05:33 Creatinine 1.3 mg/dL (0.4-1.0) H 06/10/20 05:33 Estimated GFR (MDRD) 44 (>89) L 06/10/20 05:33 Glucose 86 mg/dL (70-100) 06/10/20 05:33 Lactic Acid 0.9 mmol/L (0.5-2.2) 06/09/20 22:15 Calcium 8.0 mg/dL (8.5-10.3) L 06/10/20 05:33 Total Bilirubin 0.9 mg/dL (0.2-1.0) 06/09/20 18:45 AST 35 IU/L (10-42) 06/09/20 18:45 ALT 40 IU/L (10-60) 06/09/20 18:45 Alkaline Phosphatase 75 IU/L (42-121) 06/09/20 18:45 Total Protein 7.8 g/dL (6.7-8.2) 06/09/20 18:45 Albumin 3.8 g/dL (3.2-5.5) 06/09/20 18:45 Globulin 4.0 g/dL (2.1-4.2) 06/09/20 18:45 Albumin/Globulin Ratio 1.0 (1.0-2.2) 06/09/20 18:45 Lipase 24 U/L (22-51) 06/09/20 18:45 Urine Color YELLOW 06/09/20 18:36 Urine Clarity HAZY (CLEAR) 06/09/20 18:36 Urine pH 6.0 PH (5.0-7.5) 06/09/20 18:36 Ur Specific [place] 1.010 (1.002-1.030) 06/09/20 18:36 Ur Specific [place] 1.010 (1.002-1.030) 06/09/20 18:36 Urine Protein 100 mg/dL (NEGATIVE) H 06/09/20 18:36 Urine Glucose (UA) NEGATIVE mg/dL (NEGATIVE) 06/09/20 18:36 Urine Ketones NEGATIVE mg/dL (NEGATIVE) 06/09/20 18:36 Urine Occult Blood LARGE (NEGATIVE) H 06/09/20 18:36 Urine Nitrite NEGATIVE (NEGATIVE) 06/09/20 18:36 Urine Bilirubin NEGATIVE (NEGATIVE) 06/09/20 18:36 Urine Urobilinogen 0.2 (NORMAL) E.U./dL (NORMAL) 06/09/20 18:36 Ur Leukocyte Esterase LARGE (NEGATIVE) H 06/09/20 18:36 Urine RBC 11-25 /HPF (0-5) H 06/09/20 18:36 Urine WBC 6-10 /HPF (0-5) H 06/09/20 18:36 Ur Squamous Epith Cells RARE Squamous (<= Few) 06/09/20 18:36 Urine Bacteria Rare /HPF (None Seen) 06/09/20 18:36 Ur Microscopic Review INDICATED 06/09/20 18:36 Urine Culture Comments INDICATED 06/09/20 18:36 Urine HCG, Qual NEGATIVE 06/09/20 18:36
[2020-06-10] MEDS: methocarbamoL 500 MG TABLET PO SCH ×2 (14:03→21:30)
[2020-06-10] MEDS: ASPIRIN EC 81 MG TABLET PO SCH (14:53)
[2020-06-10] MEDS: ALBUTEROL 1 PUFF INH PRN (17:37)
[2020-06-10] MEDS: guaiFENesin 100 MG/5 ML UDC PO PRN (18:08)
[2020-06-10] MEDS: TROSPIUM CHLORIDE 20 MG PO SCH (20:23)
[2020-06-11] MEDS: guaiFENesin 100 MG/5 ML UDC PO PRN ×4 (00:03→21:07)
[2020-06-11] MEDS: ACETAMINOPHEN 325 MG TABLET PO PRN ×4 (00:03→21:07)
[2020-06-11] MEDS: SODIUM CHLORIDE FLUSH 0.9% 10 ML SYRINGE IVP SCH ×3 (01:43→17:03)
[2020-06-11 05:34] LABS: BASOPHILS % (AUTO) 0.2 %; EOSINOPHILS % (AUTO) 0.2 %; HGB - HEMOGLOBIN 10.9 g/dL (12.0-16.0); LYMPHOCYTES # (AUTO) 2.3 10^3/uL (1.5-3.5); LYMPHOCYTES % (AUTO) 18.2 %; MEAN CORPUSCULAR HEMOGLOBIN 27.1 pg (27.0-31.0); MEAN CORPUSCULAR HGB CONC 31.7 g/dL (32.0-36.0); MEAN CORPUSCULAR VOLUME 85.6 fL (81.0-99.0); MEAN PLATELET VOLUME 9.6 fL (7.9-10.8); MONOCYTES # (AUTO) 0.6 10^3/uL (0.0-1.0); MONOCYTES % (AUTO) 4.9 %; NEUTROPHILS # (AUTO) 9.8 10^3/uL (1.5-6.6); NEUTROPHILS % (AUTO) 75.9 %; PLT - PLATELET COUNT 248 10^3/uL (130-450); RED BLOOD COUNT 4.02 10^6/uL (4.20-5.40); RED CELL DISTRIBUTION WIDTH 14.8 % (12.0-15.0); WHITE BLOOD COUNT 12.9 x10^3/uL (4.8-10.8)
[2020-06-11 05:44] LABS: CALCIUM 7.7 mg/dL (8.5-10.3); CREATININE 1.1 mg/dL (0.4-1.0)
[2020-06-11] MEDS: SODIUM CHLORIDE 0.9% 1,000 ML IV SCH ×2 (06:05→15:48)
[2020-06-11] MEDS: methocarbamoL 500 MG TABLET PO SCH ×3 (06:15→21:08)
[2020-06-11] MEDS: PANTOPRAZOLE 40 MG TABLET PO SCH (06:16)
[2020-06-11] MEDS: cefTRIAXone 1 GM in SODIUM CHLORIDE 0.9% MINIBAG 100 ML IV SCH (08:30)
[2020-06-11] MEDS: ASPIRIN EC 81 MG TABLET PO SCH (08:30)
[2020-06-11] MEDS: DOCUSATE SODIUM 250 MG CAPSULE PO SCH (08:30)
[2020-06-11] MEDS: amLODIPine 5 MG TABLET PO SCH (08:30)
[2020-06-11] MEDS: TROSPIUM CHLORIDE 20 MG PO SCH ×2 (08:31→21:09)
[2020-06-11] MEDS: polyethylene glycoL 3350 17 GM PACKET PO SCH (08:31)
[2020-06-11] MEDS: SENNA 8.6 MG TABLET PO SCH (08:31)
[2020-06-11] MEDS ORDERED: AMLODIPINE BESYLATE 10 MG PO SCH (09:00)
--- NOTE | 2020-06-11 09:28 | PROVIDER PROGRESS NOTE ---
Assessment/Plan - Problem List (1) Ureteritis Assessment/Plan: The CT scan showed jefry-ureteral stranding of one ureter (R), and there was no perinephric stranding of the kidneys, therefore this is actually ureteritis, not pyelonephritis. The patient thinks she passed a stone which could be set up for having a focal infection localized to one ureter. She no longer has flank pain. There was no hematuria. Her white blood count has improved. She still had a low-grade fever overnight to 37.7 C. We will order all urine to be strained for a stone. Continue empiric IV antibiotics. Awaiting blood and urine cultures for identification, sensitivities and then will tailor and change to oral antibiotics using Ceftin. (2) COVID-19 Assessment/Plan: She has minimal respiratory symptoms, some change in smell and taste. This has caused a decreased appetite, which may be the cause of the PEDRO. Daily baby aspirin was ordered, starting yesterday since Covid is associated with increased thrombotic events and especially because of her underlying factor V Leiden deficiency. (3) Acute kidney injury Assessment/Plan: Creatinine is improving daily. Continue with maintenance fluids, since she still had a fever. Follow BMP daily. (4) Factor V Leiden Assessment/Plan: Daily baby aspirin was ordered, since Covid is associated with increased thrombotic events and especially because of her underlying factor V Leiden deficiency. (5) Polycystic kidney disease Assessment/Plan: As per Hx (6) Anemia Assessment/Plan: Hemoglobin dropped from 12 but is stable at 10 now. This is likely from her hemodilution; she is 3 liters positive since admission. (7) Hypertension Assessment/Plan: HTN is common with polycystic kidneys. Her home meds have been ordered to dose here - Current Meds Current Meds: Current Medications Generic Name Dose Route Start Last Admin Trade Name Freq PRN Reason Stop Dose Admin Acetaminophen 650 mg 06/09/20 21:53 06/11/20 06:15 Tylenol PO 650 mg Q4HR PRN Administration Pain 1 to 4 Albuterol 2 puffs 06/10/20 13:52 06/10/20 17:37 Mdi: Albuterol INH 2 puffs RTQID PRN Administration Wheezing Amlodipine Besylate 5 mg 06/10/20 09:00 06/11/20 08:30 Norvasc PO 5 mg DAILY TABITHA Administration Aspirin 81 mg 06/10/20 14:31 06/11/20 08:30 Ecotrin PO 81 mg DAILY TABITHA Administration Docusate Sodium 250 - 500 mg 06/10/20 09:00 06/11/20 08:30 Colace 250mg Capsule PO 250 mg DAILY TABITHA Administration Guaifenesin 100 mg 06/10/20 17:29 06/11/20 06:18 Robitussin Liquid PO 100 mg Q6HR PRN Administration Cough Sodium Chloride 1,000 mls @ 125 mls/hr 06/09/20 22:00 06/11/20 06:05 Normal Saline 0.9% IV 125 mls/hr .Q8H TABITHA Administration Ceftriaxone Sodium 1 gm/ 100 mls @ 200 mls/hr 06/10/20 09:00 06/11/20 08:30 Sodium Chloride IV 200 mls/hr DAILY TABITHA Administration Methocarbamol 500 mg 06/10/20 14:00 06/11/20 06:15 Robaxin PO 500 mg TID TABITHA Administration Non-Formulary Medication 20 mg 06/10/20 21:00 06/11/20 08:31 Trospium Chloride [Trospium Chloride] PO Not Given BID TABITHA Pantoprazole Sodium 40 mg 06/10/20 07:00 06/11/20 06:16 Protonix PO 40 mg QDAC TABITHA Administration Polyethylene Glycol 17 gm 06/10/20 09:00 06/11/20 08:31 Miralax PO Not Given DAILY TABITHA Senna 8.6 - 17.2 mg 06/10/20 09:00 06/11/20 08:31 Senokot PO Not Given DAILY TABITHA Sodium Chloride 10 ml 06/09/20 21:53 06/09/20 22:56 Normal Saline Flush 0.9% IVP 10 ml PRN PRN Administration NEEDED PER PROVIDER ORDERS Sodium Chloride 10 ml 06/10/20 01:00 06/11/20 08:31 Normal Saline Flush 0.9% IVP Not Given 0100,0900,1700 TABITHA - Lab Result Fish Bone Diagrams: 06/11/20 05:20 06/11/20 05:20 - Additional Planning My Orders: My Active Orders 06/10/20 09:00 Docusate Sodium 250Mg Capsule [Colace 250Mg Capsule] 250 - 500 mg PO DAILY Senna [Senokot] 8.6 - 17.2 mg PO DAILY polyethylene glycoL 3350 [Miralax] 17 gm PO DAILY 06/10/20 13:52 Mdi: Albuterol 2 puffs INH RTQID PRN 06/10/20 14:00 methocarbamoL [Robaxin] 500 mg PO TID 06/10/20 14:31 Aspirin EC [Ecotrin] 81 mg PO DAILY 06/10/20 17:29 guaiFENesin LIQUID [Robitussin Liquid] 100 mg PO Q6HR PRN 06/10/20 17:49 Nebulizer [Nebulizer/MDI Tx.] [RC] .QID PRN 06/10/20 21:00 Trospium Chloride [Trospium Chloride] 20 mg PO BID Subjective - Subjective Patient Reports: Resting Comfortably Nursing Reports: Other (Poor appetite noted) Objective Vital Signs: Vital Signs - 24 hr 06/10/20 06/10/20 06/10/20 15:55 17:49 23:56 Temperature 37.0 C 37.7 C H Heart Rate 90 Heart Rate [ 89 99 Brachial] Respiratory 16 16 18 Rate Blood Pressure 130/73 125/63 [Left Brachial artery] O2 Saturation 95 95 06/11/20 06/11/20 06:11 08:00 Temperature 37.4 C 37.2 C Heart Rate Heart Rate [ 92 90 Brachial] Respiratory 18 18 Rate Blood Pressure 126/75 121/69 [Left Brachial artery] O2 Saturation 94 94 Oxygen O2 Source Room air I&O (Last 24 Hrs): Intake and Output Totals x24h 06/09/20 06/10/20 06/11/20 23:59 23:59 23:59 Intake Total 1100 3902.917 2080 Output Total 2500 1925 Balance 1100 1402.917 155 General: Alert HEENT: Mucous membr. moist/pink Neck: Supple Neuro: Non Focal Cardiovascular: Regular rate Respiratory: No respiratory distress Abdomen: Soft Extremities: No edema - Results Results: Laboratory Results WBC 12.9 x10^3/uL (4.8-10.8) H 06/11/20 05:20 RBC 4.02 10^6/uL (4.20-5.40) L 06/11/20 05:20 Hgb 10.9 g/dL (12.0-16.0) L 06/11/20 05:20 Hct 34.4 % (37.0-47.0) L 06/11/20 05:20 MCV 85.6 fL (81.0-99.0) 06/11/20 05:20 MCH 27.1 pg (27.0-31.0) 06/11/20 05:20 MCHC 31.7 g/dL (32.0-36.0) L 06/11/20 05:20 RDW 14.8 % (12.0-15.0) 06/11/20 05:20 Plt Count 248 10^3/uL (130-450) 06/11/20 05:20 MPV 9.6 fL (7.9-10.8) 06/11/20 05:20 Neut # (Auto) 9.8 10^3/uL (1.5-6.6) H 06/11/20 05:20 Lymph # (Auto) 2.3 10^3/uL (1.5-3.5) 06/11/20 05:20 [place] # (Auto) 0.6 10^3/uL (0.0-1.0) 06/11/20 05:20 Eos # (Auto) 0.0 10^3/uL (0.0-0.7) 06/11/20 05:20 Baso # (Auto) 0.0 10^3/uL (0.0-0.1) 06/11/20 05:20 Absolute Nucleated RBC 0.00 x10^3/uL 06/11/20 05:20 Nucleated RBC % 0.0 /100WBC 06/11/20 05:20 Sodium 139 mmol/L (135-145) 06/11/20 05:20 Potassium 3.6 mmol/L (3.5-5.0) 06/11/20 05:20 Chloride 110 mmol/L (101-111) 06/11/20 05:20 Carbon Dioxide 18 mmol/L (21-32) L 06/11/20 05:20 Anion Gap 11.0 (6-13) 06/11/20 05:20 BUN 12 mg/dL (6-20) 06/11/20 05:20 Creatinine 1.1 mg/dL (0.4-1.0) H 06/11/20 05:20 Estimated GFR (MDRD) 53 (>89) L 06/11/20 05:20 Glucose 92 mg/dL (70-100) 06/11/20 05:20 Lactic Acid 0.9 mmol/L (0.5-2.2) 06/09/20 22:15 Calcium 7.7 mg/dL (8.5-10.3) L 06/11/20 05:20 Total Bilirubin 0.9 mg/dL (0.2-1.0) 06/09/20 18:45 AST 35 IU/L (10-42) 06/09/20 18:45 ALT 40 IU/L (10-60) 06/09/20 18:45 Alkaline Phosphatase 75 IU/L (42-121) 06/09/20 18:45 Total Protein 7.8 g/dL (6.7-8.2) 06/09/20 18:45 Albumin 3.8 g/dL (3.2-5.5) 06/09/20 18:45 Globulin 4.0 g/dL (2.1-4.2) 06/09/20 18:45 Albumin/Globulin Ratio 1.0 (1.0-2.2) 06/09/20 18:45 Lipase 24 U/L (22-51) 06/09/20 18:45 Urine Color YELLOW 06/09/20 18:36 Urine Clarity HAZY (CLEAR) 06/09/20 18:36 Urine pH 6.0 PH (5.0-7.5) 06/09/20 18:36 Ur Specific [place] 1.010 (1.002-1.030) 06/09/20 18:36 Ur Specific [place] 1.010 (1.002-1.030) 06/09/20 18:36 Urine Protein 100 mg/dL (NEGATIVE) H 06/09/20 18:36 Urine Glucose (UA) NEGATIVE mg/dL (NEGATIVE) 06/09/20 18:36 Urine Ketones NEGATIVE mg/dL (NEGATIVE) 06/09/20 18:36 Urine Occult Blood LARGE (NEGATIVE) H 06/09/20 18:36 Urine Nitrite NEGATIVE (NEGATIVE) 06/09/20 18:36 Urine Bilirubin NEGATIVE (NEGATIVE) 06/09/20 18:36 Urine Urobilinogen 0.2 (NORMAL) E.U./dL (NORMAL) 06/09/20 18:36 Ur Leukocyte Esterase LARGE (NEGATIVE) H 06/09/20 18:36 Urine RBC 11-25 /HPF (0-5) H 06/09/20 18:36 Urine WBC 6-10 /HPF (0-5) H 06/09/20 18:36 Ur Squamous Epith Cells RARE Squamous (<= Few) 06/09/20 18:36 Urine Bacteria Rare /HPF (None Seen) 06/09/20 18:36 Ur Microscopic Review INDICATED 06/09/20 18:36 Urine Culture Comments INDICATED 06/09/20 18:36 Urine HCG, Qual NEGATIVE 06/09/20 18:36
[2020-06-11] MEDS: MULTIVITAMIN W/MINERALS TABLET PO SCH (17:03)
[2020-06-12] MEDS: SODIUM CHLORIDE 0.9% 1,000 ML IV SCH ×2 (00:40→08:09)
[2020-06-12] MEDS: ALBUTEROL 1 PUFF INH PRN (00:40)
[2020-06-12] MEDS: ACETAMINOPHEN 325 MG TABLET PO PRN ×2 (00:47→06:17)
[2020-06-12] MEDS: SODIUM CHLORIDE FLUSH 0.9% 10 ML SYRINGE IVP SCH ×2 (02:16→08:10)
[2020-06-12] MEDS: guaiFENesin 100 MG/5 ML UDC PO PRN (03:02)
[2020-06-12 05:10] LABS: BASOPHILS % (AUTO) 0.2 %; EOSINOPHILS % (AUTO) 0.2 %; HGB - HEMOGLOBIN 9.2 g/dL (12.0-16.0); LYMPHOCYTES # (AUTO) 1.9 10^3/uL (1.5-3.5); LYMPHOCYTES % (AUTO) 20.9 %; MEAN CORPUSCULAR HEMOGLOBIN 27.3 pg (27.0-31.0); MEAN CORPUSCULAR HGB CONC 31.3 g/dL (32.0-36.0); MEAN CORPUSCULAR VOLUME 87.2 fL (81.0-99.0); MEAN PLATELET VOLUME 9.5 fL (7.9-10.8); MONOCYTES # (AUTO) 0.5 10^3/uL (0.0-1.0); MONOCYTES % (AUTO) 5.5 %; NEUTROPHILS # (AUTO) 6.5 10^3/uL (1.5-6.6); NEUTROPHILS % (AUTO) 72.8 %; PLT - PLATELET COUNT 212 10^3/uL (130-450); RED BLOOD COUNT 3.37 10^6/uL (4.20-5.40); RED CELL DISTRIBUTION WIDTH 14.9 % (12.0-15.0); WHITE BLOOD COUNT 8.9 x10^3/uL (4.8-10.8)
[2020-06-12 05:18] LABS: CALCIUM 7.6 mg/dL (8.5-10.3); CREATININE 1.1 mg/dL (0.4-1.0)
[2020-06-12] MEDS: methocarbamoL 500 MG TABLET PO SCH (06:17)
[2020-06-12] MEDS: PANTOPRAZOLE 40 MG TABLET PO SCH (06:18)
[2020-06-12] MEDS: amLODIPine 5 MG TABLET PO SCH (08:09)
[2020-06-12] MEDS: DOCUSATE SODIUM 250 MG CAPSULE PO SCH (08:09)
[2020-06-12] MEDS: polyethylene glycoL 3350 17 GM PACKET PO SCH (08:10)
[2020-06-12] MEDS: ASPIRIN EC 81 MG TABLET PO SCH (08:10)
[2020-06-12] MEDS: SENNA 8.6 MG TABLET PO SCH (08:10)
[2020-06-12] MEDS: MULTIVITAMIN W/MINERALS TABLET PO SCH (08:10)
[2020-06-12] MEDS: TROSPIUM CHLORIDE 20 MG PO SCH (08:11)
[2020-06-12 08:28] VITALS: BP 119/68
[2020-06-12] MEDS ORDERED: ACETAMINOPHEN/CODEINE 300 MG/30 MG TABLET PO PRN (08:41)
[2020-06-12] MEDS ORDERED: POTASSIUM CHLORIDE 20 MEQ TABLET PO ONE (08:41)
[2020-06-12] MEDS ORDERED: ZINC SULFATE 220 MG CAPSULE PO SCH (09:00)
--- NOTE | 2020-06-12 10:33 | Discharge Plan ---
Discharge Plan Problem Reviewed?: Yes Disposition: Home, Self Care Condition: Stable Prescriptions: Acetaminophen/Cod 300/30 [Tylenol #3] 1 tab PO Q4HR PRN #5 tablet PRN Reason: Severe Pain cefUROXime axetiL [Ceftin] 500 mg PO BID #16 tablet Aspirin EC [Ecotrin] 81 mg PO DAILY #30 tablet Diet: Regular Activity Restrictions: Activity as Tolerated Shower Restrictions: No Driving Restrictions: No Instruction Topics: Urinary Tract Infec Ch, COVID-19 [facility] Department Statement Health Concerns: You were admitted because of continued fever and right flank pain and from not getting better from the UTI that was being treated with Keflex. You received several days of IV antibiotics and the white blood count has decreased, and you have had no fever. There was no bacteria that grew in your blood cultures. You are being discharged to take several more days of Ceftin. The prescription was electronically sent to the [facility] pharmacy in [place]. The recurrence of your right flank pain may be the polycystic kidney disease, as you suspected. A new prescription for Tylenol with codeine, to take for pain control, has been sent to the [facility] pharmacy in [place] as well. You also have had recent positive Covid result. Please continue to stay in quarantine. Please take 1 baby aspirin daily until you have completely resolved all of those symptoms. Resume all your other prehospital medications. Plan of Treatment: As above. Care Goals: Improvement in symptoms and stabilization are the goals. Assessment: Patient understands and is agreeable with the plan. Additional Instructions or Follow Up instructions: If you have new or worsening symptoms, go to Urgent Care or come to the ER. No Smoking: If you smoke, Please STOP! Call for help.
--- NOTE | 2020-06-12 10:55 | DISCHARGE SUMMARY ---
Discharge Summary Admit Date: 06/09/20 Discharge Date: 06/12/20 Discharging Provider: Dr Alison Drew Primary Care Provider: Out of state Condition at Discharge: Stable Discharge Disposition: 01 Home, Self Care - [facility] History of Present Illness: From the admission H&P of Dr. Esther Alfaro: Patient is a 44-year-old female with medical history significant for factor V Leiden abnormality, hypertension, and polycystic kidney disease who presented to the ED today with fever and right flank pain. She is visiting the area from [place]. 1 week ago she had presented to the emergency room with complaint of burning on urination, increased urinary frequency. She was diagnosed with a UTI which was subsequently confirmed by urinary cultures to be due to E. coli which was pansensitive. The patient was placed on Keflex and advised to return to the ED if her symptoms were not improving. She had taken Keflex for 4 days. Her symptoms were not better, including fevers with shaking chills. On a separate note she was also diagnosed with Covid last week. Her symptoms have mostly been coughing and anosmia/ loss of appetite. She denies difficulty in breathing. At a follow-up call by the health department worker, she reported having a fever and has symptoms of UTI persisting. She was advised to go to the ED for evaluation. Upon presentation to the ED now, she was found to have a temperature of 38.6 C, white blood cell count of 13.7 and a UA which was indicative of a UTI. She also had a CT of the abdomen pelvis without contrast which showed some periureteral fat stranding on the right, where her flank pain is. As a result, the patient was presented for admission for further treatment of UTI, failed outpatient antibiotics. At bedside currently she is resting comfortably. She denies chest pain, dyspnea, nausea, vomiting. She reports the right flank pain and fever. T he rest of her history is as above. - HOSPITAL COURSE Hospital Course: (1) Ureteritis The CT scan of abdomen/pelvis showed jefry-ureteral stranding of the right ureter, no perinephric stranding of the kidneys, therefore she had ureteritis, not pyelonephritis. The patient thinks she passed a stone which could be set up for having a focal infection localized to one ureter. We ordered all urine to be strained for a stone and there was none. The flank pain resolved then recurred. There was no hematuria. Her white blood count improved from 13>> 10>>12>>8.9 at discharge. A urine was sent for culture but had no bacterial growth. She received 4 days of iv Ceftriaxone, then was transitioned to take 8 more days of Ceftin. She was also prescribed several tablets ot Tylenol with Codeine #3, for flank pain. (2) COVID-19 She had minimal respiratory symptoms, had fatigue and some change in smell and taste. This caused a decreased appetite, which may be the cause of her PEDRO. She was placed in isolation. She requested Robitussin. Daily baby aspirin was ordered, since Covid is associated with increased thrombotic events, and especially because of her underlying factor V Leiden deficiency. (3) Acute kidney injury Creatinine was 1.5 at admission and improved daily>>1.3>> 1.1. We continued maintenance iv fluids, since she had a fever. Creat plateaued at (4) Factor V Leiden Daily baby aspirin was ordered, since Covid is associated with increased thrombotic events, and especially because of her underlying factor V Leiden deficiency. (5) Polycystic kidney disease As per Hx (6) Anemia Hemoglobin dropped from 12 but stablized at 10. This was likely from her hemodilution; she was 3 liters positive since admission. (7) Hypertension HTN is common with polycystic kidneys. Her home meds were ordered to use while hospitalized. - ALLERGIES Allergies/Adverse Reactions: Allergies Allergy/AdvReac Type Severity Reaction Status Date / Time Latex, Natural Rubber Allergy Itching Verified 06/04/20 14:31 Ringer's solution,lactated Allergy Unknown Verified 06/09/20 16:55 - MEDICATIONS Home Medications: Ambulatory Orders Medication Instructions Recorded Confirmed Albuterol Sulfate [Proair Hfa 1 - 2 puffs PO PRN PRN 06/10/20 06/10/20 Inhaler] Amlodipine Besylate [Norvasc] 10 mg PO DAILY 06/10/20 06/10/20 Trospium Chloride 20 mg PO BID 06/10/20 06/10/20 methocarbamoL [Robaxin] 500 mg PO TID 06/10/20 06/10/20 Acetaminophen/Cod 300/30 [Tylenol 1 tab PO Q4HR PRN #5 tablet 06/12/20 #3] Aspirin EC [Ecotrin] 81 mg PO DAILY #30 tablet 06/12/20 cefUROXime axetiL [Ceftin] 500 mg PO BID #16 tablet 06/12/20 - PHYSICAL EXAM AT DISCHARGE General Appearance: positive: No acute distress, Alert Eyes Bilateral: positive: Normal inspection, EOMI ENT: positive: ENT inspection nml, No signs of dehydration Neck: positive: Nml inspection Respiratory: positive: No respiratory distress Cardiovascular: positive: Regular rate & rhythm Abdomen: positive: No distention Skin: positive: No rash, Warm, Dry Extremities: positive: Non-tender, No pedal edema Neurologic/Psychiatric: positive: Oriented x3, Motor nml - LABS Result Diagrams: 06/12/20 04:55 06/12/20 04:55 - DIAGNOSTIC IMAGING Diagnostic Imaging Results: Final report reviewed - FOLLOW UP Follow Up: See PCP upon return to [place]. - TIME SPENT Time Spent in Discharge (Minutes): 30
== END 2020-06-12 12:50 | disposition home or self-care (01) | DRG 698 ==
LOC: ED 16:39 → MS2 21:53
PROVIDERS: ADMIT Internal Medicine; ATTEND Internal Medicine
DX: N28.89 Other specified disorders of kidney and ureter (principal); U07.1 COVID-19; D68.51 Activated protein C resistance; Q61.3 Polycystic kidney, unspecified; N17.9 Acute kidney failure, unspecified; D64.9 Anemia, unspecified; N39.0 Urinary tract infection, site not specified; B96.20 Unspecified Escherichia coli [E. coli] as the cause of diseases classified elsewhere; I10 Essential (primary) hypertension
CPT/HCPCS: 36415; 74176; 80048; 80053; 81001; 81025; 83605; 83690; 85025; 87040; 87086; 94640; 96365; 99284; 99285; A9270; 81003

== ENCOUNTER 2020-08-25 14:21 | Outpatient (CLI) | payer MEDICAID ==
[2020-08-25 20:27] LABS: BASOPHILS # (AUTO) 0.1 10^3/uL (0.0-0.1); BASOPHILS % (AUTO) 1.1 %; EOSINOPHILS # (AUTO) 0.2 10^3/uL (0.0-0.7); EOSINOPHILS % (AUTO) 3.1 %; HGB - HEMOGLOBIN 11.6 g/dL (12.0-16.0); LYMPHOCYTES # (AUTO) 2.1 10^3/uL (1.5-3.5); LYMPHOCYTES % (AUTO) 28.7 %; MEAN PLATELET VOLUME 10.4 fL (7.9-10.8); MONOCYTES # (AUTO) 0.4 10^3/uL (0.0-1.0); MONOCYTES % (AUTO) 4.7 %; NEUTROPHILS # (AUTO) 4.6 10^3/uL (1.5-6.6); NEUTROPHILS % (AUTO) 62.1 %; PLT - PLATELET COUNT 296 10^3/uL (130-450); RED CELL DISTRIBUTION WIDTH 14.7 % (12.0-15.0); WHITE BLOOD COUNT 7.4 x10^3/uL (4.8-10.8)
[2020-08-25 20:44] LABS: ALBUMIN 4.2 g/dL (3.2-5.5); ALBUMIN/GLOBULIN RATIO 1.4 (1.0-2.2); ALKALINE PHOSPHATASE 32 IU/L (42-121); ALT ALANINE AMINOTRANSFERASE 13 IU/L (10-60); AST ASPARTATE AMINOTRANSFERASE 16 IU/L (10-42); BILIRUBIN,TOTAL 0.6 mg/dL (0.2-1.0); BUN - BLOOD UREA NITROGEN 28 mg/dL (6-20); CALCIUM 8.9 mg/dL (8.5-10.3); CARBON DIOXIDE - CO2 21 mmol/L (21-32); CHLORIDE 105 mmol/L (101-111); CHOL/HDL RATIO 3.8 (<4.4); CHOLESTEROL 290 mg/dL; CREATININE 1.4 mg/dL (0.4-1.0); GLUCOSE 100 mg/dL (70-100); HDL CHOLESTEROL 76 mg/dL; LDL CHOLESTEROL,CALCULATED 187 mg/dL; LDL/HDL RATIO 2.5 (<4.4); TOTAL PROTEIN 7.1 g/dL (6.7-8.2); VLDL CHOLESTEROL 27 mg/dL
== END 2020-08-25 14:22 | disposition home or self-care (01) ==
LOC: LAB.S 14:21
PROVIDERS: ATTEND Registered Nurse
DX: E03.9 Hypothyroidism, unspecified (principal); I10 Essential (primary) hypertension; Q61.3 Polycystic kidney, unspecified
CPT/HCPCS: 36415; 80053; 80061; 83721; 84443; 85025

== ENCOUNTER 2020-09-10 08:00 | Outpatient (CLI) | payer MEDICAID | END 2020-09-10 23:59 | disposition home or self-care (01) | LOC: LAB.S 08:00 | PROVIDERS: ATTEND Physician Assistant | DX: N39.0 Urinary tract infection, site not specified (principal); R30.0 Dysuria | CPT/HCPCS: 87086; 87181 ==

== ENCOUNTER 2020-10-22 10:43 | Outpatient (CLI) | payer MEDICAID ==
[2020-10-22 15:27] LABS: MICROALBUM/CREATININE RATIO,UR 52.3 ug/mg (<30.0); MICROALBUMIN,URINE 4.5 mg/dL (0-300.0); PROTEIN/CREATININE RATIO,URINE 0.1 (<=0.2)
[2020-10-22 16:03] LABS: T4 (THYROXINE) 7.81 ug/dL (6.09-12.23)
[2020-10-22 16:07] LABS: THYROID STIMULATING HORMONE 3.33 uIU/mL (0.34-5.60)
== END 2020-10-22 10:44 | disposition home or self-care (01) ==
LOC: LAB.S 10:43
PROVIDERS: ATTEND Registered Nurse
DX: L65.9 Nonscarring hair loss, unspecified (principal); E03.9 Hypothyroidism, unspecified; Q61.3 Polycystic kidney, unspecified
CPT/HCPCS: 36415; 81599; 82043; 82570; 84156; 84436; 84443; 84480

== ENCOUNTER 2021-01-19 14:22 | Outpatient (CLI) | payer MEDICAID ==
[2021-01-19 20:01] LABS: BILIRUBIN,URINE NEGATIVE (NEGATIVE); GLUCOSE, URINE (UA) NEGATIVE (NEGATIVE); KETONES,URINE (UA) NEGATIVE (NEGATIVE); LEUKOCYTE ESTERASE, URINE SMALL (NEGATIVE); NITRITE,URINE NEGATIVE (NEGATIVE); OCCULT BLOOD,URINE TRACE-INTA (NEGATIVE); PH,URINE 5.5 PH (5.0-7.5); PROTEIN,URINE NEGATIVE (NEGATIVE); UROBILINOGEN,URINE 0.2 (NORMAL) E.U./dL (NORMAL)
[2021-01-19 20:05] LABS: CLARITY,URINE HAZY (CLEAR)
[2021-01-19 20:08] LABS: CALCIUM 9.3 mg/dL (8.5-10.3); CREATININE 1.4 mg/dL (0.4-1.0); POTASSIUM 3.9 mmol/L (3.5-5.0)
[2021-01-19 20:13] LABS: BACTERIA,URINE Moderate /HPF (None Seen); RBC,URINE 0-5 /HPF (0-5); SQUAMOUS EPITHELIAL CELL,UR FEW Squamous (<= Few); WBC,URINE >25 /HPF (0-5)
== END 2021-01-19 14:23 | disposition home or self-care (01) ==
LOC: LAB.S 14:22
PROVIDERS: ATTEND Internal Medicine Nephrology
DX: N18.31 Chronic kidney disease, stage 3a (principal); Q61.3 Polycystic kidney, unspecified
CPT/HCPCS: 36415; 80048; 81001; 87077; 87086; 87181

== ENCOUNTER 2021-03-25 17:06 | Outpatient (CLI) | payer MEDICAID ==
[2021-03-25 20:26] LABS: BILIRUBIN,URINE NEGATIVE (NEGATIVE); GLUCOSE, URINE (UA) NEGATIVE (NEGATIVE); KETONES,URINE (UA) NEGATIVE (NEGATIVE); LEUKOCYTE ESTERASE, URINE NEGATIVE (NEGATIVE); NITRITE,URINE NEGATIVE (NEGATIVE); OCCULT BLOOD,URINE SMALL (NEGATIVE); PH,URINE 5.5 PH (5.0-7.5); PROTEIN,URINE NEGATIVE (NEGATIVE); UROBILINOGEN,URINE 0.2 (NORMAL) E.U./dL (NORMAL)
[2021-03-25 20:30] LABS: CLARITY,URINE CLEAR (CLEAR)
[2021-03-25 20:35] LABS: AMORPHOUS SEDIMENT,UR Few /LPF; BACTERIA,URINE Rare /HPF (None Seen); CALCIUM 8.9 mg/dL (8.5-10.3); CREATININE 1.5 mg/dL (0.4-1.0); RBC,URINE 0-5 /HPF (0-5); SQUAMOUS EPITHELIAL CELL,UR RARE Squamous (<= Few); WBC,URINE 0-3 /HPF (0-5)
== END 2021-03-25 17:07 | disposition home or self-care (01) ==
LOC: LAB.S 17:06
PROVIDERS: ATTEND Internal Medicine Nephrology
DX: N18.31 Chronic kidney disease, stage 3a (principal); Q61.3 Polycystic kidney, unspecified
CPT/HCPCS: 36415; 80048; 81001; 87086

== ENCOUNTER 2021-06-22 10:55 | Outpatient (CLI) | payer MEDICAID ==
[2021-06-22 14:58] LABS: BILIRUBIN,URINE NEGATIVE (NEGATIVE); GLUCOSE, URINE (UA) NEGATIVE (NEGATIVE); KETONES,URINE (UA) NEGATIVE (NEGATIVE); LEUKOCYTE ESTERASE, URINE TRACE (NEGATIVE); NITRITE,URINE POSITIVE (NEGATIVE); OCCULT BLOOD,URINE NEGATIVE (NEGATIVE); PH,URINE 5.5 PH (5.0-7.5); PROTEIN,URINE 30 mg/dL (NEGATIVE); UROBILINOGEN,URINE 0.2 (NORMAL) E.U./dL (NORMAL)
[2021-06-22 15:00] LABS: CREATININE,URINE 206.7 mg/dL; PROTEIN/CREATININE RATIO,URINE 0.3 (<=0.2)
[2021-06-22 15:04] LABS: CALCIUM 8.9 mg/dL (8.5-10.3); CREATININE 1.5 mg/dL (0.4-1.0); POTASSIUM 3.6 mmol/L (3.5-5.0)
[2021-06-22 15:17] LABS: AMORPHOUS SEDIMENT,UR Few /LPF; BACTERIA,URINE Many /HPF (None Seen); CLARITY,URINE CLOUDY (CLEAR); RBC,URINE 0-5 /HPF (0-5); SQUAMOUS EPITHELIAL CELL,UR RARE Squamous (<= Few)
== END 2021-06-22 10:56 | disposition home or self-care (01) ==
LOC: LAB.S 10:55
PROVIDERS: ATTEND Internal Medicine Nephrology
DX: N18.31 Chronic kidney disease, stage 3a (principal)
CPT/HCPCS: 36415; 80048; 81001; 82570; 84156; 87086; 87181

== ENCOUNTER 2021-07-27 08:00 | Outpatient (CLI) | payer MEDICAID ==
--- NOTE | 2021-07-27 17:12 | XRAY Report ---
PROCEDURE: Hand 3 View RT INDICATIONS: PAIN IN FINGER OF RIGHT HAND TECHNIQUE: 3 views of the hand(s) acquired. COMPARISON: None FINDINGS: Bones: No fractures or dislocations. No suspicious bony lesions. Soft tissues: No suspicious soft tissue calcifications. IMPRESSION: No evidence acute bony abnormality of the right hand. Reviewed by: Jero Falcon MD on 07/27/2021 5:11 PM PST Approved by: Jero Falcon MD on 07/27/2021 5:11 PM PST Station ID: [id number]
== END 2021-07-27 23:59 | disposition home or self-care (01) ==
LOC: DI.S 08:00
PROVIDERS: ATTEND Physician Assistant Medical
DX: M79.644 Pain in right finger(s) (principal)

== ENCOUNTER 2021-09-19 09:31 | Outpatient (CLI) | payer MEDICAID ==
[2021-09-19 14:59] LABS: BILIRUBIN,URINE NEGATIVE (NEGATIVE); GLUCOSE, URINE (UA) NEGATIVE (NEGATIVE); KETONES,URINE (UA) NEGATIVE (NEGATIVE); LEUKOCYTE ESTERASE, URINE NEGATIVE (NEGATIVE); NITRITE,URINE NEGATIVE (NEGATIVE); OCCULT BLOOD,URINE NEGATIVE (NEGATIVE); PH,URINE 5.5 PH (5.0-7.5); PROTEIN,URINE NEGATIVE (NEGATIVE); UROBILINOGEN,URINE 0.2 (NORMAL) E.U./dL (NORMAL)
[2021-09-19 15:07] LABS: ALBUMIN 3.9 g/dL (3.2-5.5); CALCIUM 9.1 mg/dL (8.5-10.3); CREATININE 1.4 mg/dL (0.4-1.0); PHOSPHORUS 3.5 mg/dL (2.5-4.6); POTASSIUM 3.7 mmol/L (3.5-5.0)
[2021-09-19 15:18] LABS: CREATININE,URINE 103.6 mg/dL; PROTEIN/CREATININE RATIO,URINE 0.2 (<=0.2)
[2021-09-19 15:38] LABS: BACTERIA,URINE None Seen /HPF (None Seen); CLARITY,URINE CLEAR (CLEAR); RBC,URINE 0-5 /HPF (0-5); SQUAMOUS EPITHELIAL CELL,UR RARE Squamous (<= Few)
== END 2021-09-19 09:32 | disposition home or self-care (01) ==
LOC: LAB.S 09:31
PROVIDERS: ATTEND Internal Medicine Nephrology
DX: N18.32 Chronic kidney disease, stage 3b (principal); Q61.3 Polycystic kidney, unspecified; N39.0 Urinary tract infection, site not specified
CPT/HCPCS: 36415; 80069; 81001; 82570; 84156; 87086

== ENCOUNTER 2021-10-24 11:51 | Outpatient (CLI) | payer MEDICAID ==
[2021-10-24 15:22] LABS: CREATININE,URINE 34.3 mg/dL
[2021-10-24 15:33] LABS: TOTAL PROTEIN,URINE TIMED < 6 mg/dL
== END 2021-10-24 11:52 | disposition home or self-care (01) ==
LOC: LAB.S 11:51
DX: N18.32 Chronic kidney disease, stage 3b (principal); Q61.3 Polycystic kidney, unspecified; N39.0 Urinary tract infection, site not specified
CPT/HCPCS: 82570; 84156; 87086

== ENCOUNTER 2021-11-01 08:55 | Outpatient (CLI) | payer MEDICAID ==
[2021-11-01 09:22] LABS: CREATININE 1.5 mg/dL (0.4-1.0)
[2021-11-01] MEDS ORDERED: GADOBUTROL 15 MMOL/15 ML VIAL ONE (09:55)
--- NOTE | 2021-11-01 20:37 | MRI Report ---
PROCEDURE: Abdomen W/WO INDICATIONS: POLYCYSTIC KIDNEY DESEASE CONTRAST: IV CONTRAST: Gadavist ml: 12 TECHNIQUE: Coronal ultra fast SE, axial 2D spoiled GE in- and [id number]; axial breath-hold T2 fast SE. Dynam ic axial ultra fast GE during the administration of contrast; post-contrast coronal ultra fast GE or 2D spoiled GE with fat saturation from the hepatic dome to the iliac crests. Optional diffusion weig hted imaging and ADC may be performed. COMPARISON: FINDINGS: Image quality: Excellent. Lung bases: No basal pleural effusions. Heart size is normal. Solid organs: The right kidney measures 19.9 x 12.1 x 11.3 cm for a volume of 1415 cc. The left rhonda ures 16.8 x 10.5 x 11.5 cm for a volume of 1055 cc. Innumerable, mainly T2 bright cysts replacing nor mal renal parenchyma. A few cysts demonstrate intrinsic T1 hyperintensity as well as a fluid fluid le vels. No visible hydronephrosis or suspicious enhancing mass. Postcontrast there is asymmetric degree of enhancement of the residual parenchyma. There appear to be single renal arteries bilaterally. The liver, spleen, adrenal glands, and pancreas appear normal. The gallbladder contains several stone s measuring between 1 and 1.6 cm. The gallbladder wall is normal thickness. No intra or extrahepatic biliary dilatation. Nodes and vessels: No retroperitoneal or mesenteric adenopathy by size criteria. Aorta and inferior vena cava are normal in size. Bowel and peritoneum: Unenhanced bowel loops are normal in caliber. No free fluid. Bones and soft tissues: No ventral hernias. Bone marrow is normal in overall signal. IMPRESSION: 1. Polycystic kidney disease with renal volumes as calculated above. 2. Cholelithiasis. Reviewed by: Kathryn Samuel MD on 11/01/2021 8:36 PM PDT Approved by: Kathryn Samuel MD on 11/01/2021 8:36 PM PDT Station ID: [id number]
[2021-11-02] MEDS ORDERED: GADOBUTROL 15 MMOL/15 ML VIAL IVP ONE (16:13)
== END 2021-11-01 08:56 | disposition home or self-care (01) ==
LOC: DI 08:55
PROVIDERS: ATTEND Internal Medicine Nephrology
DX: Q61.2 Polycystic kidney, adult type (principal); K80.20 Calculus of gallbladder without cholecystitis without obstruction
CPT/HCPCS: 36415; 74183; 82565; A9585

== ENCOUNTER 2021-11-28 13:01 | Emergency (ER) | payer MEDICAID ==
[2021-11-28] MEDS ORDERED: HYDROmorphone 1 MG/ML CARPUJECT IVP STA (14:02)
[2021-11-28] MEDS ORDERED: SODIUM CHLORIDE 0.9% 1,000 ML IV STA (14:02)
--- NOTE | 2021-11-28 14:03 | ED Physician Documentation ---
PD HPI ABD PAIN - Stated complaint Stated Complaint: ABD/BACK PX - Chief complaint Chief Complaint: Abd Pain - History obtained from History obtained from: Patient - Additional information Additional information: 46-year-old woman with chronic pain related to polycystic kidney disease, recurrent UTIs developed symptomatic COVID 8 days ago. This is despite having had COVID and having had 3 vaccinations as well. The COVID has caused her to start coughing and the coughing has caused severe bilateral upper quadrant pain which she thinks is related to her renal cysts. She is having some urinary he sitancy and also some stress incontinence related to coughing as well. She has not tried anything for the pain as she is supposed to avoid NSAIDs because of her underlying illness. Review of Systems Ten Systems: 10 systems reviewed and negative Constitutional: reports: Myalgias, Fatigue Nose: reports: Rhinorrhea / runny nose Respiratory: reports: Dyspnea, Cough PD PAST MEDICAL HISTORY - Past Medical History Cardiovascular: Hypertension Respiratory: None Endocrine/Autoimmune: HyPOthyroidism GI: Other [employer]: Other : Retention, Incontinence, Chronic bladder infection, Other HEENT: None Psych: Depression, Anxiety Musculoskeletal: Gout - Past Surgical History General: Other - Present Medications Home Medications: Ambulatory Orders Medication Instructions Recorded Confirmed Albuterol Sulfate [Proair Hfa 1 - 2 puffs PO PRN PRN 06/10/20 10/10/21 Inhaler] Amlodipine Besylate [Norvasc] 10 mg PO DAILY 06/10/20 10/10/21 Trospium Chloride 20 mg PO BID 06/10/20 10/10/21 Acetaminophen [Acetaminophen Extra 500 mg PO Q8HR PRN MDD 4,000mg 10/10/21 10/10/21 Strength] Clindamycin Phosphate [Clindagel] 75 ml TP BID PRN 10/10/21 10/10/21 Diclofenac Sodium [Voltaren 2 gm TOP QID PRN 10/10/21 10/10/21 Arthritis Pain] Nitrofurantoin Macrocrystal 100 mg PO BID PRN 10/10/21 10/10/21 [Macrodantin] Sulfamethox/Trimeth 800/160 1 tab PO ONCE PRN 10/10/21 10/10/21 [Bactrim Ds] metroNIDAZOLE 0.75% GEL [Flagyl 1 applic TOP BID 10/10/21 10/10/21 Gel] Cefdinir 300 mg PO BID #20 cap 11/28/21 Ondansetron Odt [Zofran] 4 mg TL Q6H PRN #10 tablet 11/28/21 Oxycodone HCl/Acetaminophen 1 - 2 each PO Q6H PRN #14 tablet 11/28/21 [Percocet 5-325 mg Tablet] - Allergies Allergies/Adverse Reactions: Allergies Allergy/AdvReac Type Severity Reaction Status Date / Time Latex, Natural Rubber Allergy Itching Verified 11/28/21 13:21 Ringer's solution,lactated Allergy Unknown Verified 11/28/21 13:21 sesame seed Allergy Unknown Verified 11/28/21 13:21 - Social History Does the pt smoke?: No Smoking Status: Former smoker PD ED PE NORMAL - Vitals Vital signs reviewed: Yes - General General: Alert and oriented X 3, Other (Winces with motion) - Cardiac Cardiac: RRR, No murmur - Respiratory Respiratory: No respiratory distress, Clear bilaterally - Abdomen Abdomen: Soft, Non tender - Back Back: Other (Mild bilateral flank tenderness) - Derm Derm: Normal color, Warm and dry - Extremities Extremities: No edema, No calf tenderness / cord - Neuro Neuro: Alert and oriented X 3, Normal speech Results - Vitals Vitals: Vital Signs - 24 hr 11/28/21 11/28/21 11/28/21 13:14 13:21 15:21 Temperature 36.0 C L 36.5 C Heart Rate 81 81 80 Respiratory 18 18 18 Rate Blood Pressure 148/96 H 148/96 H 136/88 H O2 Saturation 97 97 98 11/28/21 16:52 Temperature 36.5 C Heart Rate 71 Respiratory 16 Rate Blood Pressure 139/87 H O2 Saturation 99 Oxygen O2 Source Room air - Labs Labs: Laboratory Tests 11/28/21 11/28/21 11/28/21 14:14 14:14 14:48 WBC 12.1 H RBC 4.58 Hgb 12.2 Hct 38.1 MCV 83.2 MCH 26.6 L MCHC 32.0 RDW 13.8 Plt Count 331 MPV 9.7 Neut # (Auto) 9.0 H Lymph # (Auto) 2.4 Toombs # (Auto) 0.5 Eos # (Auto) 0.1 Baso # (Auto) 0.1 Absolute Nucleated RBC 0.00 Nucleated RBC % 0.0 Sodium 136 Potassium 3.7 Chloride 99 L Carbon Dioxide 25 Anion Gap 12.0 BUN 33 H Creatinine 1.8 H Estimated GFR (MDRD) 30 L Glucose 96 Calcium 9.3 Total Bilirubin 0.5 AST 15 ALT 14 Alkaline Phosphatase 49 Total Protein 8.3 H Albumin 4.2 Globulin 4.1 Albumin/Globulin Ratio 1.0 Urine Color YELLOW Urine Clarity CLOUDY Urine pH 6.0 Ur Specific [place] 1.025 Urine Protein 100 H Urine Glucose (UA) NEGATIVE Urine Ketones NEGATIVE Urine Occult Blood LARGE H Urine Nitrite POSITIVE H Urine Bilirubin NEGATIVE Urine Urobilinogen 0.2 (NORMAL) Ur Leukocyte Esterase MODERATE H Urine RBC 11-25 H Urine WBC >25 H Ur Squamous Epith Cells RARE Squamous Urine Bacteria Many H Ur Microscopic Review INDICATED Urine Culture Comments INDICATED Urine HCG, Qual NEGATIVE PD MEDICAL DECISION MAKING - ED course ED course: 46-year-old woman whose been dealing with COVID now with severe upper abdominal pain and back pain especially when she coughs or vomits. She was worried about one of her kidney cyst rupturing and this is not evident on CT but she does have pyelonephritis and this is treated with antibiotics. 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 Departure - Departure Disposition: 01 Home, Self Care Clinical Impression: Pyelonephritis, COVID-19 Condition: Good Record reviewed to determine appropriate education?: Yes Instructions: Pyelonephritis Dc Prescriptions: Cefdinir 300 mg PO BID #20 cap Oxycodone HCl/Acetaminophen [Percocet 5-325 mg Tablet] 1 - 2 each PO Q6H PRN #14 tablet PRN Reason: pain Ondansetron Odt [Zofran] 4 mg TL Q6H PRN #10 tablet PRN Reason: Nausea / Vomiting Comments: As discussed, I think the bulk of your pain today is from pyelonephritis, kidney infection. We are treating this with antibiotics. I sent prescription for that and pain medicine as well as nausea medicine to [facility] in [place]. Your kidney function has gone downhill a little bit, today your GFR is 30. Mention this to your publishing manager and needs to be followed over time. Drink plenty of fluids. I am prescribing a short course of narcotic pain medication for you. These are potentially dangerous and addictive medications that should be used carefully. These medications may constipate you. Take an [id number] stool softener (docusate) twice daily with plenty of water while taking these medications. If you go 24 hours without a bowel movement, take [id number] miralax, per package instructions. Do not drink or drive while taking these medications. If you received narcotic or sedating medications while in the emergency department, do not drive for 24 hours. Store this medication in a safe, secure place and out of reach of children. It is a violation of federal law to give or sell this medication to another person or to use in a manner other than prescribed. The ED will not refill narcotic prescriptions, including prescriptions lost or stolen. To dispose of unwanted medications: 1. [facility] at [address] in [place] has a medication drop box. They accept prescription medications (in pill form) Sunday through Sunday 9:00 a.m. to 5:00 p.m. 2. The [facility] [employer] accepts prescription medications (in pill form only) for disposal year round. Call for more information. 3. Contact the [facility] for the next [facility] sponsored prescription drug collection event. , [phone], or [phone]; Note that many narcotic pain relievers also contain Tylenol/acetaminophen. Please ensure that your total dose of acetaminophen from all sources does not exceed 3 g (3000 mg) per day. Discharge Date/Time: 11/28/21 17:05
[2021-11-28] MEDS ORDERED: IOVERSOL 320 50 ML VIAL ONE (14:16)
[2021-11-28 14:31] LABS: BASOPHILS # (AUTO) 0.1 10^3/uL (0.0-0.1); BASOPHILS % (AUTO) 0.5 %; EOSINOPHILS # (AUTO) 0.1 10^3/uL (0.0-0.7); EOSINOPHILS % (AUTO) 0.7 %; HCT - HEMATOCRIT 38.1 % (37.0-47.0); HGB - HEMOGLOBIN 12.2 g/dL (12.0-16.0); LYMPHOCYTES # (AUTO) 2.4 10^3/uL (1.5-3.5); LYMPHOCYTES % (AUTO) 19.7 %; MEAN CORPUSCULAR HEMOGLOBIN 26.6 pg (27.0-31.0); MEAN CORPUSCULAR VOLUME 83.2 fL (81.0-99.0); MEAN PLATELET VOLUME 9.7 fL (7.9-10.8); MONOCYTES # (AUTO) 0.5 10^3/uL (0.0-1.0); MONOCYTES % (AUTO) 4.4 %; NEUTROPHILS % (AUTO) 74.5 %; PLT - PLATELET COUNT 331 10^3/uL (130-450); RED BLOOD COUNT 4.58 10^6/uL (4.20-5.40); RED CELL DISTRIBUTION WIDTH 13.8 % (12.0-15.0); WHITE BLOOD COUNT 12.1 x10^3/uL (4.8-10.8)
[2021-11-28 14:36] LABS: ALBUMIN 4.2 g/dL (3.2-5.5); BILIRUBIN,TOTAL 0.5 mg/dL (0.2-1.0); CALCIUM 9.3 mg/dL (8.5-10.3); CREATININE 1.8 mg/dL (0.4-1.0); POTASSIUM 3.7 mmol/L (3.5-5.0); TOTAL PROTEIN 8.3 g/dL (6.7-8.2)
[2021-11-28 14:54] LABS: BILIRUBIN,URINE NEGATIVE (NEGATIVE); GLUCOSE, URINE (UA) NEGATIVE (NEGATIVE); KETONES,URINE (UA) NEGATIVE (NEGATIVE); LEUKOCYTE ESTERASE, URINE MODERATE (NEGATIVE); NITRITE,URINE POSITIVE (NEGATIVE); OCCULT BLOOD,URINE LARGE (NEGATIVE); PROTEIN,URINE 100 mg/dL (NEGATIVE); UROBILINOGEN,URINE 0.2 (NORMAL) E.U./dL (NORMAL)
[2021-11-28 14:55] LABS: CLARITY,URINE CLOUDY (CLEAR); HCG UR QUAL NEGATIVE
[2021-11-28 15:12] LABS: BACTERIA,URINE Many /HPF (None Seen); SQUAMOUS EPITHELIAL CELL,UR RARE Squamous (<= Few); WBC,URINE >25 /HPF (0-5)
[2021-11-28] MEDS ORDERED: cefTRIAXone 1 GM in SODIUM CHLORIDE 0.9% MINIBAG 100 ML IV STA (15:13)
--- NOTE | 2021-11-28 15:53 | CT Report ---
PROCEDURE: Abdomen/Pelvis WO INDICATIONS: IV Only, BL Upper Abd pain TECHNIQUE: Noncontrast 5 mm thick sections acquired from the diaphragms to the symphysis. 5 mm coronal and sagi ttal reformats were then performed. For radiation dose reduction, the following was used: automated exposure control, adjustment of mA and/or kV according to patient size. COMPARISON: 06/09/2020. FINDINGS: Image quality: Excellent. ABDOMEN: Lung bases: Dependent atelectasis in posterior aspect of bilateral lung bases are seen. Heart size is normal. Solid organs: Liver and spleen are normal in size. Gallbladder is within normal limits. Pancreas i s normal in contours. No adrenal nodules. Again noted is enlarged bilateral kidneys with cystic repl acement of bilateral renal parenchyma consistent with polycystic kidney disease unchanged from prior study. Numerous nonobstructing bilateral renal calculi are seen unchanged from prior study. Numerous bilateral hyperdense renal cysts are noted not significantly changed in size and appearance from 2020 study suggestive of hyperdense cysts. No hydronephrosis or hydroureter. Peritoneum and bowel: Unenhanced bowel loops demonstrate normal wall thickness and caliber. No free fluid or air. Appendix is visualized and is within normal limits. Nodes and vessels: No retroperitoneal or mesenteric adenopathy by size criteria. Aorta and inferior vena cava are normal in caliber. Miscellaneous: No ventral hernias. PELVIS: Genitourinary: Bladder wall thickness is normal. Uterus and bilateral adnexa show no gross abnormal ities. Miscellaneous: No inguinal hernias or adenopathy. Bones: No suspicious bony lesions. No vertebral body compression fractures. IMPRESSION: 1. Polycystic kidneys unchanged from prior studies. No obstructing renal stones or hydronephrosis. Bi lateral nonobstructing renal calculi an suggestion of bilateral hyperdense renal cysts. No perinephri c fat stranding or fluid. 2. No bowel obstruction or abnormal bowel wall thickening. No free fluid of free air. Normal appendix . Reviewed by: Jc Garcia MD on 11/28/2021 3:51 PM PDT Approved by: Jc Garcia MD on 11/28/2021 3:51 PM PDT Station ID: [id number]
[2021-11-28] MEDS ORDERED: cefTRIAXone 1 GM VIAL ONE (16:00)
[2021-11-28 16:53] VITALS: BP 139/87
== END 2021-11-28 17:05 | disposition home or self-care (01) ==
LOC: ED 13:01
DX: U07.1 COVID-19 (principal); N12 Tubulo-interstitial nephritis, not specified as acute or chronic
CPT/HCPCS: 36415; 74176; 80053; 81001; 81025; 85025; 87086; 87181; 96365; 96375; 99283; 99284; J1170; 81003

== ENCOUNTER 2021-12-12 10:53 | Outpatient (CLI) | payer MEDICAID ==
--- NOTE | 2021-12-12 13:19 | Mammography Report ---
BILATERAL DIGITAL SCREENING MAMMOGRAM 3D/2D WITH EXAGGERATED CC: 12/12/2021 CLINICAL: Routine screening. Baseline exam. No prior exams were available for comparison. The tissue of both breasts is heterogeneously dense. T his may lower the sensitivity of mammography. No significant masses, calcifications, or other findings are seen in either breast. IMPRESSION: NEGATIVE There is no mammographic evidence of malignancy. A 1 year screening mammogram is recommended. This exam was interpreted at Station ID: [id number]. NOTE: For mammograms, a report in lay terms will be sent to the patient. Approximately 15% of breast malignancies will not be visualized mammographically. In the management of a palpable breast mass, a negative mammogram must not discourage biopsy of a clinically suspicious lesion. Electronically Signed By: Wilbur Patel M.D., jr/crow:12/12/2021 12:26:01 ACR BI-RADS Category 1: Negative 3341F PARENCHYMAL PATTERN: (D) - The breast(s) demonstrate(s) heterogeneously dense fibroglandular paula garza. BI-RADS CATEGORY: (1) - 1 RECOMMENDATION: (ANNUAL) - Recommend routine annual screening mammography. [id number] 1 year screening LATERALITY: (B)
== END 2021-12-12 10:54 | disposition home or self-care (01) ==
LOC: DI.S 10:53
DX: Z12.31 Encounter for screening mammogram for malignant neoplasm of breast (principal)

== ENCOUNTER 2021-12-12 10:54 | Outpatient (CLI) | payer MEDICAID ==
[2021-12-12 14:50] LABS: ALBUMIN 4.2 g/dL (3.2-5.5); BILIRUBIN,DIRECT 0.1 mg/dL (0.1-0.5); BILIRUBIN,TOTAL 0.6 mg/dL (0.2-1.0); BILIRUBIN,URINE NEGATIVE (NEGATIVE); CALCIUM 9.2 mg/dL (8.5-10.3); CREATININE 1.6 mg/dL (0.4-1.0); GLUCOSE, URINE (UA) NEGATIVE (NEGATIVE); KETONES,URINE (UA) NEGATIVE (NEGATIVE); LEUKOCYTE ESTERASE, URINE NEGATIVE (NEGATIVE); NITRITE,URINE NEGATIVE (NEGATIVE); OCCULT BLOOD,URINE NEGATIVE (NEGATIVE); PHOSPHORUS 3.6 mg/dL (2.5-4.6); POTASSIUM 4.2 mmol/L (3.5-5.0); PROTEIN,URINE NEGATIVE (NEGATIVE); TOTAL PROTEIN 7.8 g/dL (6.7-8.2); UROBILINOGEN,URINE 0.2 (NORMAL) E.U./dL (NORMAL)
[2021-12-12 14:57] LABS: CLARITY,URINE CLEAR (CLEAR)
[2021-12-12 15:28] LABS: BACTERIA,URINE Few /HPF (None Seen); RBC,URINE 0-5 /HPF (0-5); SQUAMOUS EPITHELIAL CELL,UR FEW Squamous (<= Few); WBC,URINE 0-3 /HPF (0-5)
== END 2021-12-12 10:55 | disposition home or self-care (01) ==
LOC: LAB.S 10:54
PROVIDERS: ATTEND Internal Medicine Nephrology
DX: Q61.2 Polycystic kidney, adult type (principal)
CPT/HCPCS: 36415; 80069; 80076; 81001; 87086

== ENCOUNTER 2022-01-10 08:00 | Outpatient (CLI) | payer MEDICAID ==
[2022-01-11 18:39] LABS: BILIRUBIN,URINE NEGATIVE (NEGATIVE); GLUCOSE, URINE (UA) NEGATIVE (NEGATIVE); KETONES,URINE (UA) NEGATIVE (NEGATIVE); LEUKOCYTE ESTERASE, URINE NEGATIVE (NEGATIVE); NITRITE,URINE NEGATIVE (NEGATIVE); OCCULT BLOOD,URINE NEGATIVE (NEGATIVE); PH,URINE 5.5 PH (5.0-7.5); PROTEIN,URINE NEGATIVE (NEGATIVE); UROBILINOGEN,URINE 0.2 (NORMAL) E.U./dL (NORMAL)
[2022-01-12 00:32] LABS: BACTERIA,URINE None Seen /HPF (None Seen); CLARITY,URINE CLEAR (CLEAR); RBC,URINE None Seen /HPF (0-5); SQUAMOUS EPITHELIAL CELL,UR NONE SEEN (<= Few); WBC,URINE 0-3 /HPF (0-5)
== END 2022-01-10 23:59 | disposition home or self-care (01) ==
LOC: LAB.S 08:00
PROVIDERS: ATTEND Physician Assistant Medical
DX: R30.0 Dysuria (principal)
CPT/HCPCS: 81001; 87086

== ENCOUNTER 2022-02-05 13:22 | Outpatient (CLI) | payer MEDICAID ==
[2022-02-07] MEDS ORDERED: ALBUTEROL 1 PUFF INH STA (17:52)
== END 2022-02-05 13:23 | disposition home or self-care (01) ==
LOC: RT 13:22
PROVIDERS: ATTEND Registered Nurse
DX: U09.9 Post COVID-19 condition, unspecified (principal); R06.09 Other forms of dyspnea
CPT/HCPCS: 94060; 94729

== ENCOUNTER 2022-02-10 11:52 | Outpatient (CLI) | payer MEDICAID ==
--- NOTE | 2022-02-10 14:48 | XRAY Report ---
PROCEDURE: Chest 2 View X-Ray INDICATIONS: DYSPNEA ON EXERTION TECHNIQUE: 2 view(s) of the chest. COMPARISON: None. FINDINGS: Surgical changes and devices: None. Lungs and pleura: No pleural effusions or pneumothorax. Lungs are clear. Mediastinum: Mediastinal contours are normal. Heart size is normal. Bones and chest wall: No suspicious bony abnormalities. Soft tissues appear unremarkable. IMPRESSION: No acute cardiopulmonary disease. Reviewed by: Isabel Jiang MD on 02/10/2022 2:46 PM PDT Approved by: Isabel Jiang MD on 02/10/2022 2:46 PM PDT Station ID: [id number]
== END 2022-02-10 11:53 | disposition home or self-care (01) ==
LOC: DI.S 11:52
PROVIDERS: ATTEND Registered Nurse
DX: R06.00 Dyspnea, unspecified (principal)

== ENCOUNTER 2022-05-22 08:00 | Outpatient (CLI) | payer MEDICAID ==
[2022-05-22 14:55] LABS: BILIRUBIN,URINE NEGATIVE (NEGATIVE); GLUCOSE, URINE (UA) NEGATIVE (NEGATIVE); KETONES,URINE (UA) NEGATIVE (NEGATIVE); LEUKOCYTE ESTERASE, URINE NEGATIVE (NEGATIVE); NITRITE,URINE NEGATIVE (NEGATIVE); OCCULT BLOOD,URINE MODERATE (NEGATIVE); PROTEIN,URINE NEGATIVE (NEGATIVE); UROBILINOGEN,URINE 0.2 (NORMAL) E.U./dL (NORMAL)
[2022-05-22 15:08] LABS: CLARITY,URINE CLEAR (CLEAR)
[2022-05-22 15:11] LABS: ALBUMIN 4.4 g/dL (3.2-5.5); BILIRUBIN,DIRECT 0.1 mg/dL (0.1-0.5); BILIRUBIN,TOTAL 0.7 mg/dL (0.2-1.0); CALCIUM 9.3 mg/dL (8.5-10.3); CREATININE 1.7 mg/dL (0.4-1.0); PHOSPHORUS 3.3 mg/dL (2.5-4.6); POTASSIUM 3.4 mmol/L (3.5-5.0); TOTAL PROTEIN 7.6 g/dL (6.7-8.2)
[2022-05-22 15:22] LABS: BACTERIA,URINE Few /HPF (None Seen); SQUAMOUS EPITHELIAL CELL,UR MOD Squamous (<= Few)
== END 2022-05-22 23:59 | disposition home or self-care (01) ==
LOC: LAB.S 08:00
PROVIDERS: ATTEND Internal Medicine Nephrology
DX: Q61.3 Polycystic kidney, unspecified (principal); N18.32 Chronic kidney disease, stage 3b
CPT/HCPCS: 36415; 80048; 80069; 80076; 81001; 87086

== ENCOUNTER 2022-06-11 20:23 | Emergency (ER) | payer MEDICAID ==
[2022-06-11] MEDS ORDERED: ACETAMINOPHEN 325 MG TABLET PO STA (20:36)
[2022-06-11 21:02] LABS: BILIRUBIN,URINE NEGATIVE (NEGATIVE); GLUCOSE, URINE (UA) NEGATIVE (NEGATIVE); KETONES,URINE (UA) NEGATIVE (NEGATIVE); LEUKOCYTE ESTERASE, URINE NEGATIVE (NEGATIVE); NITRITE,URINE NEGATIVE (NEGATIVE); OCCULT BLOOD,URINE TRACE-INTA (NEGATIVE); PROTEIN,URINE TRACE mg/dL (NEGATIVE); UROBILINOGEN,URINE 0.2 (NORMAL) E.U./dL (NORMAL)
[2022-06-11 21:06] LABS: CLARITY,URINE CLEAR (CLEAR)
[2022-06-11 21:07] LABS: HCG UR QUAL NEGATIVE
[2022-06-11] MEDS ORDERED: SODIUM CHLORIDE 0.9% 1,000 ML IV STA (21:25)
--- NOTE | 2022-06-11 21:57 | XRAY Report ---
PROCEDURE: Chest 2 View X-Ray INDICATIONS: fever, rhonchi TECHNIQUE: 2 views of the chest. COMPARISON: None. FINDINGS: Surgical changes and devices: None. Lungs and pleura: No pleural effusions or pneumothorax. Lungs are clear. Mediastinum: Mediastinal contours are normal. Heart size is normal. Bones and chest wall: No suspicious bony abnormalities. Soft tissues appear unremarkable. IMPRESSION: 1. No acute cardiopulmonary disease. Reviewed by: Harjit Sharp MD on 06/11/2022 9:56 PM [facility] Approved by: Harjit Sharp MD on 06/11/2022 9:56 PM [facility] Station ID: [id number]
[2022-06-11 22:00] LABS: BASOPHILS % (AUTO) 0.3 %; EOSINOPHILS # (AUTO) 0.1 10^3/uL (0.0-0.7); EOSINOPHILS % (AUTO) 0.5 %; HCT - HEMATOCRIT 39.3 % (37.0-47.0); HGB - HEMOGLOBIN 12.6 g/dL (12.0-16.0); LYMPHOCYTES # (AUTO) 0.6 10^3/uL (1.5-3.5); MEAN CORPUSCULAR HGB CONC 32.1 g/dL (32.0-36.0); MEAN CORPUSCULAR VOLUME 81.2 fL (81.0-99.0); MEAN PLATELET VOLUME 10.6 fL (7.9-10.8); MONOCYTES # (AUTO) 0.3 10^3/uL (0.0-1.0); MONOCYTES % (AUTO) 2.3 %; NEUTROPHILS # (AUTO) 11.8 10^3/uL (1.5-6.6); NEUTROPHILS % (AUTO) 91.7 %; PLT - PLATELET COUNT 220 10^3/uL (130-450); RED BLOOD COUNT 4.84 10^6/uL (4.20-5.40); RED CELL DISTRIBUTION WIDTH 14.6 % (12.0-15.0); WHITE BLOOD COUNT 12.8 x10^3/uL (4.8-10.8)
[2022-06-11 22:10] LABS: ALBUMIN 4.3 g/dL (3.2-5.5); ALBUMIN/GLOBULIN RATIO 1.3 (1.0-2.2); BILIRUBIN,TOTAL 0.3 mg/dL (0.2-1.0); CALCIUM 9.4 mg/dL (8.5-10.3); CREATININE 1.6 mg/dL (0.4-1.0); POTASSIUM 3.5 mmol/L (3.5-5.0); TOTAL PROTEIN 7.6 g/dL (6.7-8.2)
--- NOTE | 2022-06-11 22:49 | ED Physician Documentation ---
History of Present Illness - Stated complaint Stated Complaint: FEMALE /SOA/FEVER - Chief complaint Chief Complaint: Resp - History obtained from History obtained from: Patient - History of Present Illness Timing: Other (multiple c/o over past 4 day time frame (see narrative below)) Pain level now: 4 Improved by: no ameliorating factors Worsened by: no exacerbating factors - Additonal information Additional information: c/o fever, chills, diaphoresis since 3 PM today. Also says "my lungs hurt", elaborates that she is having generalized/diffuse chest/thoracic burning pain with some degree of pleuritic component. Also says "I have a UTI" with suprapubic pain/pressure and painful/burning dysuria, frequency x 4 days. Took tylenol at 1 PM today. Patient has taken antibiotics x 3 days: she says she gets frequent UTIs and has h/o sepsis due to kidney infection and thus has antibiotics prescribed for her to take when she feels UTI symptoms. She says the regimen is bactrim on the first day of symptoms, macrobid on days 2 and 3. Review of Systems Constitutional: reports: Fever, Chills, Myalgias, Sweats Throat: denies: Sore throat Cardiac: reports: Chest pain / pressure (generalized thoracic (anterior/posterior/lateral bilaterally) chest discomfort with pleuritic component). denies: Palpitations, Pedal edema, Calf pain Respiratory: reports: Dyspnea. denies: Cough GI: reports: Nausea, Vomiting. 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, Incontinence, Chronic bladder infection, Other HEENT: None Psych: Depression, Anxiety Musculoskeletal: Gout - Past Surgical History General: Other - Present Medications Home Medications: Ambulatory Orders Medication Instructions Recorded Confirmed Albuterol Sulfate [Proair Hfa 1 - 2 puffs PO PRN PRN 06/10/20 02/13/22 Inhaler] Amlodipine Besylate [Norvasc] 10 mg PO DAILY 06/10/20 02/13/22 Trospium Chloride 20 mg PO BID 06/10/20 10/10/21 Acetaminophen [Acetaminophen Extra 500 mg PO Q8HR PRN MDD 4,000mg 10/10/21 02/13/22 Strength] Clindamycin Phosphate [Clindagel] 75 ml TP BID PRN 10/10/21 02/13/22 Diclofenac Sodium [Voltaren 2 gm TOP QID PRN 10/10/21 02/13/22 Arthritis Pain] Nitrofurantoin Macrocrystal 100 mg PO BID PRN 10/10/21 02/13/22 [Macrodantin] Sulfamethox/Trimeth 800/160 1 tab PO ONCE PRN 10/10/21 10/10/21 [Bactrim Ds] metroNIDAZOLE 0.75% GEL [Flagyl 1 applic TOP BID 10/10/21 02/13/22 Gel] Cefdinir 300 mg PO BID #20 cap 11/28/21 02/13/22 Ondansetron Odt [Zofran] 4 mg TL Q6H PRN #10 tablet 11/28/21 Oxycodone HCl/Acetaminophen 1 - 2 each PO Q6H PRN #14 tablet 11/28/21 [Percocet 5-325 mg Tablet] Cefuroxime Axetil [Cefuroxime] 500 mg PO BID #14 tablet 06/11/22 - Allergies Allergies/Adverse Reactions: Allergies Allergy/AdvReac Type Severity Reaction Status Date / Time Latex, Natural Rubber Allergy Itching Verified 06/11/22 20:35 Ringer's solution,lactated Allergy Unknown Verified 06/11/22 20:35 sesame seed Allergy Unknown Verified 06/11/22 20:35 - Social History Does the pt smoke?: No Smoking Status: Former smoker PD ED PE NORMAL - Vitals Vital signs reviewed: Yes - General General: Alert and oriented X 3, No acute distress, Well developed/nourished - HEENT HEENT: Moist mucous membranes, Pharynx benign - Neck Neck: Supple, no meningeal sign - Cardiac Cardiac: No murmur - Respiratory Respiratory: No respiratory distress, Other (clear inspiratory phase bilaterally; cannot assess expiratory phase due to moaning expirations (I asked her to breathe out without moaning but after a few such tries, she says she cannot help sighing/moaning due to the discomfort)) - Abdomen Abdomen: Normal bowel sounds, Soft, Non tender, Non distended - Back Back: No CVA TTP - Derm Derm: Normal color, Warm and dry, No rash PD ED PE EXPANDED - Cardiac Cardiac: Tachy, Regular Rhythm Results - Vitals Vitals: Oxygen O2 Source Room air - Labs Labs: Laboratory Tests 06/11/22 06/11/22 06/11/22 20:50 20:50 21:18 WBC RBC Hgb Hct MCV MCH MCHC RDW Plt Count MPV Neut # (Auto) Lymph # (Auto) [place] # (Auto) Eos # (Auto) Baso # (Auto) Absolute Nucleated RBC Nucleated RBC % Sodium Potassium Chloride Carbon Dioxide Anion Gap BUN Creatinine Estimated GFR (MDRD) Glucose Lactic Acid Calcium Total Bilirubin AST ALT Alkaline Phosphatase Total Protein Albumin Globulin Albumin/Globulin Ratio Lipase Urine Color YELLOW Urine Clarity CLEAR Urine pH 6.0 Ur Specific Stewart 1.010 Urine Protein TRACE Urine Glucose (UA) NEGATIVE Urine Ketones NEGATIVE Urine Occult Blood TRACE-INTA Urine Nitrite NEGATIVE Urine Bilirubin NEGATIVE Urine Urobilinogen 0.2 (NORMAL) Ur Leukocyte Esterase NEGATIVE Ur Microscopic Review NOT INDICATED Urine Culture Comments NOT INDICATED Urine HCG, Qual NEGATIVE Nasal Adenovirus (PCR) NOT DETECTED Nasal B. parapertussis DNA (PCR) NOT DETECTED Nasal Coronavir 229E PCR NOT DETECTED Nasal Coronavir HKU1 PCR NOT DETECTED Nasal Coronavir NL63 PCR NOT DETECTED Nasal Coronavir OC43 PCR NOT DETECTED Nasal Enterovir/Rhinovir PCR NOT DETECTED Nasal Influenza B PCR NOT DETECTED Nasal Influenza A PCR NOT DETECTED Nasal Parainfluen 1 PCR NOT DETECTED Nasal Parainfluen 2 PCR NOT DETECTED Nasal Parainfluen 3 PCR NOT DETECTED Nasal Parainfluen 4 PCR NOT DETECTED Nasal RSV (PCR) NOT DETECTED Nasal B.pertussis DNA PCR NOT DETECTED Nasal C.pneumoniae (PCR) NOT DETECTED [place] Human Metapneumo PCR NOT DETECTED Nasal M.pneumoniae (PCR) NOT DETECTED Nasal SARS-CoV-2 (PCR) NOT DETECTED 06/11/22 06/11/22 06/11/22 21:52 21:52 21:52 WBC 12.8 H RBC 4.84 Hgb 12.6 Hct 39.3 MCV 81.2 MCH 26.0 L MCHC 32.1 RDW 14.6 Plt Count 220 MPV 10.6 Neut # (Auto) 11.8 H Lymph # (Auto) 0.6 L [place] # (Auto) 0.3 Eos # (Auto) 0.1 Baso # (Auto) 0.0 Absolute Nucleated RBC 0.00 Nucleated RBC % 0.0 Sodium 137 Potassium 3.5 Chloride 103 Carbon Dioxide 22 Anion Gap 12.0 BUN 31 H Creatinine 1.6 H Estimated GFR (MDRD) 34 L Glucose 115 H Lactic Acid 1.0 Calcium 9.4 Total Bilirubin 0.3 AST 14 ALT 12 Alkaline Phosphatase 39 L Total Protein 7.6 Albumin 4.3 Globulin 3.3 Albumin/Globulin Ratio 1.3 Lipase 44 Urine Color Urine Clarity Urine pH Ur Specific Stewart Urine Protein Urine Glucose (UA) Urine Ketones Urine Occult Blood Urine Nitrite Urine Bilirubin Urine Urobilinogen Ur Leukocyte Esterase Ur Microscopic Review Urine Culture Comments Urine HCG, Qual Nasal Adenovirus (PCR) Nasal B. parapertussis DNA (PCR) Nasal Coronavir 229E PCR Nasal Coronavir HKU1 PCR Nasal Coronavir NL63 PCR Nasal Coronavir OC43 PCR Nasal Enterovir/Rhinovir PCR Nasal Influenza B PCR Nasal Influenza A PCR Nasal Parainfluen 1 PCR Nasal Parainfluen 2 PCR Nasal Parainfluen 3 PCR Nasal Parainfluen 4 PCR Nasal RSV (PCR) Nasal B.pertussis DNA PCR Nasal C.pneumoniae (PCR) Dex[place] Human Metapneumo PCR Nasal M.pneumoniae (PCR) Nasal SARS-CoV-2 (PCR) - Rads (name of study) chest xray Radiology: Prelim report reviewed, See rad report PD MEDICAL DECISION MAKING - ED course Complexity details: reviewed old records, reviewed results, re-evaluated patient, considered differential, d/w patient ED course: UA is negative except for trace blood on macroscopic testing (micro not performed due to lack of significant findings on macro). Mild leukocytosis with WBC 12.8, normal lactate (1.0), and BUN/creatinine are 31/1.6 (approximates patient's baseline when compared to previous results in [facility]). Unremarkable chest xray and respiratory PCR panel is negative (including influenza, COVID). She is febrile when triaged in ED (38.7), but defervesces after 650mg PO tylenol. She is also given 1 liter NS during ED stay. On reevaluation, she is in NAD and reports feeling much better, which is likely due to fever reduction. I reviewed results with patient. I explained that at this time there is no apparent cause for her symptoms / signs (fever); I suspect a viral process despite the respiratory PCR results, possibly a virus not tested or too early in infectious process (her presentation is s/o influenza, for example, which is rapidly appearing over past 1-2 weeks locally). She is comfortable with d/c home but expresses that she is very uncomfortable with no antibiotic prescription; she cites her h/o urosepsis and she feels strongly that her symptoms are very similar to previous urinary tract infections ([facility] records reflect she has had urine culture positive for e.coli five times over past 2 years), as well as some symptoms of her pyelonephritis. Though unlikely, it is possible her urinalysis results are skewed due to a partially-treated infection (having taken bactrim and macrobid as noted in HPI). Risks and benefits of empiric coverage of a bacterial process versus no antibiotic and strict follow up and return precautions, and she strongly prefers antibiotic coverage. She is given IV rocephin and rx for cefuroxime. Departure - Departure Disposition: 01 Home, Self Care Clinical Impression: Fever Qualifiers: Fever type: unspecified Qualified Code(s): R50.9 - Fever, unspecified Condition: Good Instructions: ED Fever Unconf Cause Prescriptions: Cefuroxime Axetil [Cefuroxime] 500 mg PO BID #14 tablet Comments: The results of tonight's tests do not have any concerning nor diagnostic results, including blood tests, chest xray, viral tests (nasal swab), and urinalysis. You are describing symptoms consistent with urinary tract infection; you have been taking antibiotics for the past few days, and this makes the urinalysis result less reliable. Given your history of kidney infection and sepsis, I am starting you on an antibiotic to cover a possible bacterial infection such as UTI/kidney infection. You were given ceftriaxone in the ER and a prescription for cefuroxime (a similar antibiotic but in oral form) is being prescribed. Follow up with your primary care provider in 3-5 days for reevaluation Discharge Date/Time: 06/12/22 00:25
[2022-06-11 22:57] LABS: B. PARAPERTUSSIS- RESP PCR PAN NOT DETECTED; B. PERTUSSIS- RESP PCR PANEL NOT DETECTED; C. PNEUMONIAE- RESP PCR PANEL NOT DETECTED; CORONAVIRUS 229E-RESP PCR NOT DETECTED; CORONAVIRUS HKU1-RESP PCR NOT DETECTED; CORONAVIRUS NL63-RESP PCR NOT DETECTED; CORONAVIRUS OC43-RESP PCR NOT DETECTED; HUMAN METAPNEUMOVIRUS NOT DETECTED; INFLUENZA A- RESP PCR PANEL NOT DETECTED; INFLUENZA B - RESP PCR PANEL NOT DETECTED; M. PNEUMONIAE- RESP PCR PANEL NOT DETECTED; PARAINFLUENZA VIRUS 1 NOT DETECTED; PARAINFLUENZA VIRUS 2 NOT DETECTED; PARAINFLUENZA VIRUS 3 NOT DETECTED; PARAINFLUENZA VIRUS 4 NOT DETECTED; RHINOVIRUS/ENTEROVIRUS NOT DETECTED; RSV- RESP PCR PANEL NOT DETECTED; SARS-CoV-2 -RESP PCR PANEL NOT DETECTED
[2022-06-11] MEDS ORDERED: cefTRIAXone 1 GM VIAL IVP STA (23:28)
[2022-06-12 00:07] VITALS: BP 121/59
== END 2022-06-12 00:25 | disposition home or self-care (01) ==
LOC: ED 20:23
DX: R50.9 Fever, unspecified (principal); D72.829 Elevated white blood cell count, unspecified; R07.89 Other chest pain; R11.2 Nausea with vomiting, unspecified; R30.0 Dysuria; R35.0 Frequency of micturition; Z87.440 Personal history of urinary (tract) infections; I10 Essential (primary) hypertension; Z87.891 Personal history of nicotine dependence
CPT/HCPCS: 36415; 71046; 80053; 81003; 81025; 83605; 83690; 85025; 87633; 96361; 96374; 99284; A9270; 81001; 84145; 87086

== ENCOUNTER 2022-08-14 07:00 | Outpatient (CLI) | payer MEDICAID ==
[2022-08-14 15:21] LABS: ALBUMIN 4.1 g/dL (3.2-5.5); BILIRUBIN,DIRECT 0.1 mg/dL (0.1-0.5); BILIRUBIN,TOTAL 0.6 mg/dL (0.2-1.0); CALCIUM 9.3 mg/dL (8.5-10.3); CREATININE 1.6 mg/dL (0.4-1.0); PHOSPHORUS 3.1 mg/dL (2.5-4.6); POTASSIUM 3.6 mmol/L (3.5-5.0); TOTAL PROTEIN 7.5 g/dL (6.7-8.2)
[2022-08-14 15:22] LABS: CREATININE,URINE 101.2 mg/dL; PROTEIN/CREATININE RATIO,URINE 0.1 (<=0.2)
== END 2022-08-14 23:59 | disposition home or self-care (01) ==
LOC: LAB.S 07:00
PROVIDERS: ATTEND Internal Medicine Nephrology
DX: N18.32 Chronic kidney disease, stage 3b (principal); Q61.2 Polycystic kidney, adult type
CPT/HCPCS: 36415; 80069; 80076; 82570; 84156

== ENCOUNTER 2022-08-31 07:00 | Outpatient (CLI) | payer MEDICAID | END 2022-08-31 23:59 | disposition home or self-care (01) | LOC: LAB.S 07:00 | PROVIDERS: ATTEND Physician Assistant | DX: Z53.9 Procedure and treatment not carried out, unspecified reason (principal) | CPT/HCPCS: 87086 ==

== ENCOUNTER 2022-10-13 11:33 | Outpatient (CLI) | payer MEDICAID ==
[2022-10-13 15:13] LABS: ALBUMIN 4.3 g/dL (3.2-5.5); ALKALINE PHOSPHATASE 39 IU/L (42-121); ALT ALANINE AMINOTRANSFERASE 11 IU/L (10-60); AST ASPARTATE AMINOTRANSFERASE 13 IU/L (10-42); BILIRUBIN,TOTAL 0.3 mg/dL (0.2-1.0); BUN - BLOOD UREA NITROGEN 28 mg/dL (6-20); CALCIUM 9.1 mg/dL (8.5-10.3); CARBON DIOXIDE - CO2 26 mmol/L (21-32); CHLORIDE 107 mmol/L (101-111); CREATININE 1.7 mg/dL (0.4-1.0); GFR - MDRD 32 (>89); GLUCOSE 97 mg/dL (70-100); PHOSPHORUS 3.3 mg/dL (2.5-4.6); POTASSIUM 4.2 mmol/L (3.5-5.0); SODIUM 141 mmol/L (135-145); TOTAL PROTEIN 7.6 g/dL (6.7-8.2)
[2022-10-13 15:25] LABS: CREATININE,URINE 145.7 mg/dL; PROTEIN/CREATININE RATIO,URINE 0.1 (<=0.2)
[2022-10-13 15:26] LABS: BILIRUBIN,DIRECT < 0.1 mg/dL (0.1-0.5)
== END 2022-10-13 11:34 | disposition home or self-care (01) ==
LOC: LAB.S 11:33
PROVIDERS: ATTEND Internal Medicine Nephrology
DX: N18.32 Chronic kidney disease, stage 3b (principal); Q61.3 Polycystic kidney, unspecified
CPT/HCPCS: 36415; 80069; 80076; 82570; 84156

== ENCOUNTER 2022-10-25 18:53 | Outpatient (CLI) | payer MEDICAID ==
--- NOTE | 2022-10-26 09:17 | Ultrasound Report ---
PROCEDURE: Pelvic w/Transvaginal INDICATIONS: PELVIC PAIN TECHNIQUE: Real-time scanning was performed of the pelvic organs, with image documentation. Additional endovagi nal scanning was necessary due to incomplete visualization of the adnexal and endometrial structures by transabdominal scanning. COMPARISON: None. FINDINGS: Uterus: Uterus is anteverted and normal in size at 9.5 x 8.1 x 7.2 cm. The myometrium is heterogene ous. The endometrium measures 9 mm in combined thickness. IUD appears appropriately positioned with in the endometrial cavity. A few intramural and subserosal fibroids are present. Largest measures 5.3 x 3.8 x 4.1 cm, is subserosal at the left mid uterine segment. Ovaries: The right ovary measures 1.2 x 1.2 x 1.4 cm, with a calculated ovarian volume of 1 cc. The left ovary measures 4.5 x 3.2 x 3.6 cm, with a calculated ovarian volume of 28 cc. The ovaries have a normal sonographic appearance. Less than 12 follicles can be seen in each ovary. No adnexal mass es are seen. Other: No pathologic free abdominal or pelvic fluid. IMPRESSION: A few uterine fibroids, largest measuring 5.3 cm. IUD appears properly positioned within the endometrial cavity. Reviewed by: Reece Gonsalez on 10/26/2022 9:15 AM PDT Approved by: Reece Gonsalez on 10/26/2022 9:15 AM PDT Station ID: [id number]
== END 2022-10-25 18:54 | disposition home or self-care (01) ==
LOC: DI 18:53
PROVIDERS: ATTEND Obstetrics & Gynecology
DX: D25.1 Intramural leiomyoma of uterus (principal); D25.2 Subserosal leiomyoma of uterus; Z97.5 Presence of (intrauterine) contraceptive device

== ENCOUNTER 2022-11-17 10:24 | Outpatient (CLI) | payer MEDICAID ==
[2022-11-17 14:55] LABS: ALBUMIN 4.2 g/dL (3.2-5.5); BILIRUBIN,DIRECT 0.1 mg/dL (0.1-0.5); BILIRUBIN,TOTAL 0.6 mg/dL (0.2-1.0); CALCIUM 9.1 mg/dL (8.5-10.3); PHOSPHORUS 3.5 mg/dL (2.5-4.6); POTASSIUM 3.4 mmol/L (3.5-5.0); TOTAL PROTEIN 7.5 g/dL (6.7-8.2)
[2022-11-17 15:01] LABS: CREATININE,URINE 99.6 mg/dL; PROTEIN/CREATININE RATIO,URINE 0.1 (<=0.2)
== END 2022-11-17 10:25 | disposition home or self-care (01) ==
LOC: LAB.S 10:24
PROVIDERS: ATTEND Internal Medicine Nephrology
DX: N18.32 Chronic kidney disease, stage 3b (principal); Q61.3 Polycystic kidney, unspecified
CPT/HCPCS: 36415; 80048; 80069; 80076; 82570; 84100; 84156; 84244

== ENCOUNTER 2022-11-23 12:27 | Outpatient (CLI) | payer MEDICARE, MEDICAID | END 2022-11-23 12:28 | disposition home or self-care (01) | LOC: DI 12:27 | PROVIDERS: ATTEND Registered Nurse | DX: M35.7 Hypermobility syndrome (principal); Q61.3 Polycystic kidney, unspecified | CPT/HCPCS: 93306 ==

== ENCOUNTER 2022-12-26 13:11 | Outpatient (CLI) | payer MEDICARE, MEDICAID ==
[2022-12-26 20:08] LABS: ALBUMIN 3.8 g/dL (3.2-5.5); ALKALINE PHOSPHATASE 42 IU/L (42-121); ALT ALANINE AMINOTRANSFERASE 13 IU/L (10-60); AST ASPARTATE AMINOTRANSFERASE 15 IU/L (10-42); BILIRUBIN,TOTAL 0.4 mg/dL (0.2-1.0); BUN - BLOOD UREA NITROGEN 22 mg/dL (6-20); CALCIUM 8.4 mg/dL (8.5-10.3); CARBON DIOXIDE - CO2 27 mmol/L (21-32); CHLORIDE 106 mmol/L (101-111); GFR - MDRD 26 (>89); GLUCOSE 133 mg/dL (70-100); PHOSPHORUS 2.9 mg/dL (2.5-4.6); POTASSIUM 3.9 mmol/L (3.5-5.0); SODIUM 141 mmol/L (135-145); TOTAL PROTEIN 7.1 g/dL (6.7-8.2)
[2022-12-26 20:10] LABS: BILIRUBIN,DIRECT < 0.1 mg/dL (0.1-0.5)
[2022-12-26 20:16] LABS: CREATININE,URINE 76.8 mg/dL; PROTEIN/CREATININE RATIO,URINE 0.1 (<=0.2)
== END 2022-12-26 13:12 | disposition home or self-care (01) ==
LOC: LAB.S 13:11
PROVIDERS: ATTEND Internal Medicine Nephrology
DX: N18.32 Chronic kidney disease, stage 3b (principal); Q61.3 Polycystic kidney, unspecified
CPT/HCPCS: 36415; 80069; 80076; 82570; 84156

== ENCOUNTER 2023-02-13 13:21 | Outpatient (CLI) | payer MEDICARE, BC, MEDICAID ==
[2023-02-13 20:18] LABS: CREATININE,URINE 134.2 mg/dL; PROTEIN/CREATININE RATIO,URINE 0.2 (<=0.2)
[2023-02-13 20:19] LABS: ALBUMIN 3.9 g/dL (3.2-5.5); BILIRUBIN,DIRECT 0.1 mg/dL (0.1-0.5); BILIRUBIN,TOTAL 0.4 mg/dL (0.2-1.0); CALCIUM 9.2 mg/dL (8.5-10.3); CREATININE 1.9 mg/dL (0.4-1.0); PHOSPHORUS 4.1 mg/dL (2.5-4.6); POTASSIUM 4.6 mmol/L (3.5-5.0); TOTAL PROTEIN 7.2 g/dL (6.7-8.2)
== END 2023-02-13 13:22 | disposition home or self-care (01) ==
LOC: LAB.S 13:21
PROVIDERS: ATTEND Internal Medicine Nephrology
DX: N18.4 Chronic kidney disease, stage 4 (severe) (principal)
CPT/HCPCS: 36415; 80069; 80076; 82570; 84156

== ENCOUNTER 2023-04-10 14:02 | Outpatient (CLI) | payer MEDICARE, BC, MEDICAID ==
--- NOTE | 2023-04-11 09:29 | Mammography Report ---
BILATERAL DIGITAL SCREENING MAMMOGRAM 3D/2D WITH EXAGGERATED CC ADDITIONAL VIEWS: 04/10/2023 CLINICAL: Routine screening. Comparison is made to exam dated: 12/12/2021 mammogram - [facility]. There are scattered areas of fibroglandular density in both breasts (category b / 25%-50% glandular t issue). No significant masses, calcifications, or other findings are seen in either breast. There has been no significant interval change. IMPRESSION: NEGATIVE There is no mammographic evidence of malignancy. A 1 year screening mammogram is recommended. Based on the Tyrer Cuzick model (a risk assessment model) the patients lifetime risk is 10.5% and he r 10 year risk is 2.3%. According to the ACR, ACS, and NCCN guidelines, an annual breast MRI exam yuan ng with mammogram is recommended if the patients lifetime risk is 20% or greater. This exam was interpreted at Station ID: [id number]. NOTE: For mammograms, a report in lay terms will be sent to the patient. Approximately 15% of breast malignancies will not be visualized mammographically. In the management of a palpable breast mass, a negative mammogram must not discourage biopsy of a clinically suspicious lesion. Electronically Signed By: Tristin Olvera M.D. atemely/crow:04/10/2023 20:35:19 letter sent: No_Letter ACR BI-RADS Category 1: Negative [id number] PARENCHYMAL PATTERN: (A) - The breast(s) demonstrate(s) scattered fibroglandular densities. BI-RADS CATEGORY: (1) - 1 Mammogram [id number] 1 year screening LATERALITY: (B)
== END 2023-04-10 14:03 | disposition home or self-care (01) ==
LOC: DI.S 14:02
DX: Z12.31 Encounter for screening mammogram for malignant neoplasm of breast (principal)

== ENCOUNTER 2023-05-07 11:27 | Outpatient (CLI) | payer MEDICARE, BC, MEDICAID ==
[2023-05-07 15:28] LABS: ALBUMIN 4.6 g/dL (3.2-5.5); ALKALINE PHOSPHATASE 37 IU/L (42-121); ALT ALANINE AMINOTRANSFERASE 7 IU/L (10-60); AST ASPARTATE AMINOTRANSFERASE 11 IU/L (10-42); BILIRUBIN,DIRECT < 0.10 mg/dL (0.03-0.18); BILIRUBIN,TOTAL 0.4 mg/dL (0.2-1.0); BUN - BLOOD UREA NITROGEN 40 mg/dL (6-20); CALCIUM 9.4 mg/dL (8.5-10.3); CARBON DIOXIDE - CO2 26 mmol/L (21-32); CHLORIDE 105 mmol/L (101-111); GFR - MDRD 26 (>89); GLUCOSE 95 mg/dL (74-104); PHOSPHORUS 3.9 mg/dL (2.5-5.0); POTASSIUM 4.2 mmol/L (3.5-4.5); SODIUM 139 mmol/L (135-145); TOTAL PROTEIN 7.6 g/dL (6.4-8.9)
== END 2023-05-07 11:28 | disposition home or self-care (01) ==
LOC: LAB.S 11:27
PROVIDERS: ATTEND Internal Medicine Nephrology
DX: N18.32 Chronic kidney disease, stage 3b (principal); Q61.3 Polycystic kidney, unspecified
CPT/HCPCS: 36415; 80069; 80076

== ENCOUNTER 2023-07-03 07:00 | Outpatient (CLI) | payer MEDICARE, BC, MEDICAID | END 2023-07-03 23:59 | disposition home or self-care (01) | LOC: LAB.S 07:00 | PROVIDERS: ATTEND Registered Nurse | DX: N12 Tubulo-interstitial nephritis, not specified as acute or chronic (principal) | CPT/HCPCS: 87086; 87181 ==

== ENCOUNTER 2023-07-06 11:19 | Outpatient (CLI) | payer MEDICARE, BC, MEDICAID ==
[2023-07-06 15:31] LABS: BASOPHILS # (AUTO) 0.1 10^3/uL (0.0-0.1); BASOPHILS % (AUTO) 0.7 %; EOSINOPHILS # (AUTO) 0.1 10^3/uL (0.0-0.7); EOSINOPHILS % (AUTO) 1.1 %; HCT - HEMATOCRIT 36.2 % (37.0-47.0); HGB - HEMOGLOBIN 11.2 g/dL (12.0-16.0); LYMPHOCYTES # (AUTO) 1.9 10^3/uL (1.5-3.5); LYMPHOCYTES % (AUTO) 21.2 %; MEAN CORPUSCULAR HGB CONC 30.9 g/dL (32.0-36.0); MEAN CORPUSCULAR VOLUME 87.2 fL (81.0-99.0); MEAN PLATELET VOLUME 10.7 fL (7.9-10.8); MONOCYTES # (AUTO) 0.4 10^3/uL (0.0-1.0); MONOCYTES % (AUTO) 4.7 %; NEUTROPHILS # (AUTO) 6.6 10^3/uL (1.5-6.6); PLT - PLATELET COUNT 288 10^3/uL (130-450); RED BLOOD COUNT 4.15 10^6/uL (4.20-5.40); RED CELL DISTRIBUTION WIDTH 13.1 % (12.0-15.0); WHITE BLOOD COUNT 9.1 x10^3/uL (4.8-10.8)
[2023-07-06 15:57] LABS: ALBUMIN/GLOBULIN RATIO 1.2 (1.0-2.2); ALKALINE PHOSPHATASE 62 IU/L (42-121); ALT ALANINE AMINOTRANSFERASE 8 IU/L (10-60); AST ASPARTATE AMINOTRANSFERASE 9 IU/L (10-42); BILIRUBIN,TOTAL 0.3 mg/dL (0.2-1.0); BUN - BLOOD UREA NITROGEN 32 mg/dL (6-20); CARBON DIOXIDE - CO2 22 mmol/L (21-32); CHLORIDE 105 mmol/L (101-111); CHOL/HDL RATIO 6.1 (<4.4); CHOLESTEROL 226 mg/dL; GFR - MDRD 17 (>89); GLUCOSE 97 mg/dL (74-104); HDL CHOLESTEROL 37 mg/dL; LDL CHOLESTEROL,CALCULATED 160 mg/dL; LDL/HDL RATIO 4.3 (<4.4); POTASSIUM 4.5 mmol/L (3.5-4.5); SODIUM 137 mmol/L (135-145); TOTAL PROTEIN 7.4 g/dL (6.4-8.9); TRIGLYCERIDES 147 mg/dL (48-352); VLDL CHOLESTEROL 29 mg/dL
[2023-07-06 15:59] LABS: THYROID STIMULATING HORMONE 4.46 uIU/mL (0.34-5.60)
== END 2023-07-06 11:20 | disposition home or self-care (01) ==
LOC: LAB.S 11:19
PROVIDERS: ATTEND Registered Nurse
DX: I10 Essential (primary) hypertension (principal); Z13.220 Encounter for screening for lipoid disorders; E03.9 Hypothyroidism, unspecified
CPT/HCPCS: 36415; 80053; 80061; 83721; 84443; 85025; 87086

== ENCOUNTER 2023-07-07 13:35 | Inpatient (IN) | payer MEDICARE, BC, MEDICAID ==
[2023-07-07] MEDS ORDERED: SODIUM CHLORIDE 0.9% 1,000 ML IV STA (13:38)
--- NOTE | 2023-07-07 14:16 | ED Physician Documentation ---
History of Present Illness - Stated complaint Stated Complaint: ,SENT BY PCP - Chief complaint Chief Complaint: Abd Pain - Additonal information Additional information: 47-year-old female was referred to the emergency department for evaluation of persistent UTI symptoms as well as worsening renal function. Patient was seen in the local walk-in clinic on 03 July, thought to have a UTI and was started on Bactrim. Culture subsequently revealed pansensitive E. coli and she was switched to Keflex 500 mg 3 times a day on 05 July however her labs completed 07/06/23 indicate that she has had an approximate 10 point decline in her GFR over the last 2 months. The patient reports that she has had persistent foul-smelling urine dysuria and urgency. No fevers or flank pain. Some nausea and she has occasionally vomited. symptoms present since about 06/26/23. She has a history of significant for factor V Leiden abnormality, hypertension, polycystic kidney disease with chronic kidney disease. She reports that for at least the last 6 months her GFR has been in the 20s until the most recent days. She is followed by nephrology in [place]. 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, Incontinence, Chronic bladder infection, Other HEENT: None Psych: Depression, Anxiety Musculoskeletal: Gout - Past Surgical History Past Surgical History: Yes General: Other - Present Medications Home Medications: Ambulatory Orders Medication Instructions Recorded Confirmed Amlodipine Besylate [Norvasc] 10 mg PO DAILY 06/10/20 02/13/22 Furosemide [Lasix] 40 mg PO DAILY 07/07/23 07/07/23 Losartan Potassium 25 mg PO DAILY 07/07/23 07/07/23 Ondansetron Odt [Zofran Odt] 4 mg TL Q6H PRN 07/07/23 07/07/23 carvediloL [Coreg] 12.5 mg PO BID 07/07/23 07/07/23 cephALEXin [Keflex] 500 mg PO TID 07/07/23 07/07/23 - Allergies Allergies/Adverse Reactions: Allergies Allergy/AdvReac Type Severity Reaction Status Date / Time Latex, Natural Rubber Allergy Itching Verified 07/07/23 13:53 Ringer's solution,lactated Allergy Unknown Verified 07/07/23 13:53 sesame seed Allergy Unknown Verified 07/07/23 13:53 - Social History Does the pt smoke?: No Smoking Status: Never smoker Does the pt drink ETOH?: No Does the pt have substance abuse?: No - POLST Patient has POLST: No PD ED PE NORMAL - General General: Alert and oriented X 3, No acute distress, Well developed/nourished - HEENT HEENT: Atraumatic, Moist mucous membranes - Neck Neck: Supple, no meningeal sign - Cardiac Cardiac: RRR, No murmur - Respiratory Respiratory: No respiratory distress, Clear bilaterally - Abdomen Abdomen: Normal bowel sounds, Soft. 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 No flank or CVA tenderness noted no guarding or rebound. Nonperitoneal) - Back Back: No CVA TTP - Derm Derm: Normal color, Warm and dry, No rash - Extremities Extremities: No deformity - Neuro Neuro: Alert and oriented X 3, larriman 2-12 intact Eye Opening: Spontaneous Motor: Obeys Commands Verbal: Oriented GCS Score: 15 Results - Vitals Vitals: Vital Signs - 24 hr 07/07/23 07/07/23 07/07/23 13:49 15:32 16:04 Temperature 36.9 C Heart Rate 78 66 65 Respiratory 20 16 16 Rate Blood Pressure 140/84 H 133/93 H 125/78 O2 Saturation 96 97 100 Oxygen O2 Source Room air - Labs Labs: Laboratory Tests 07/07/23 07/07/23 07/07/23 13:59 14:11 14:36 WBC 8.5 RBC 4.01 L Hgb 11.0 L Hct 34.7 L MCV 86.5 MCH 27.4 MCHC 31.7 L RDW 12.9 Plt Count 295 MPV 9.7 Neut # (Auto) 6.0 Lymph # (Auto) 2.0 [place] # (Auto) 0.4 Eos # (Auto) 0.1 Baso # (Auto) 0.1 Absolute Nucleated RBC 0.00 Nucleated RBC % 0.0 Sodium 137 Potassium 4.6 H Chloride 107 Carbon Dioxide 23 Anion Gap 7.0 BUN 25 H Creatinine 2.3 H Estimated GFR (MDRD) 23 L Glucose 87 Calcium 8.4 L Total Bilirubin 0.3 AST 8 L ALT 7 L Alkaline Phosphatase 57 Total Protein 6.5 Albumin 3.7 Globulin 2.8 Albumin/Globulin Ratio 1.3 Lipase 25 Urine Color YELLOW Urine Clarity SL. CLOUDY Urine pH 6.0 Ur Specific [place]far[place] 1.015 Urine Protein 30 H Urine Glucose (UA) NEGATIVE Urine Ketones NEGATIVE Urine Occult Blood TRACE-INTA Urine Nitrite NEGATIVE Urine Bilirubin NEGATIVE Urine Urobilinogen 0.2 (NORMAL) Ur Leukocyte Esterase SMALL H Urine RBC 0-5 Urine WBC 6-10 H Urine WBC Clumps PRESENT Ur Squamous Epith Cells RARE Squamous Urine Bacteria Moderate H Ur Microscopic Review INDICATED Urine Culture Comments INDICATED Urine HCG, Qual NEGATIVE - Rads (name of study) Ct abd Relevant Findings:: Final report received (Persistent urothelial wall thickening on the right renal pelvis as well as [id number] with eel fat stranding. Additionally there are reactive retroperitoneal lymph nodes. Findings suggest ascending urinary tract infection.) PD Medical Decision Making - ED course Complexity details: reviewed results, re-evaluated patient, considered differential, d/w patient ED course: 47-year-old female was referred to the emergency department for evaluation of persistent left flank pain and dysuria as well as worsening renal function in the setting of known polycystic kidney disease with chronic severe kidney disease. Initially began having urinary symptoms before . Was seen a local walk-in clinic on the started on Bactrim presumptively for UTI. Subsequent culture grew pansensitive E. coli. She was transitioned to Keflex but her pain persist. Yesterday labs indicated that her GFR had declined to 17 from a baseline of the mid 20s. Today in the emergency department CBC, electrolytes urinalysis and blood cultures were obtained. Per my interpretation no leukocytosis. Normal hemoglobin. Her renal function has seemingly improved from yesterday today with a BUN of 23 and a creatinine of 2.3. Now with a GFR of 23 which indicates she is at baseline. Urine continues to show infection. She was given a gram of ceftriaxone here in the ER. A noncontrast CT suggests persistent urolith eel wall thickening on the right renal pelvis as well as right-sided urothelial fat stranding. This is concerning for a sending infection/pyelonephritis. The improvement in the renal function today may be secondary to increased p.o. intake or the absence of Bactrim which was dc if favor of keflex. We should consider holding her Lasix until her function fully improves I briefly discussed this case with [facility] physician Dr. Porter who felt the patient could be adequately treated at [facility] and would not require transfer. He would recommend IV antibiotics. Clinically the patient has urinary infection but does not present as septic. I spoke with Dr. Drew hospitalist who graciously agrees to bring the patient in for further evaluation and management of her pyelonephritis which has failed outpatient antibiotics. The patient is in agreement for admission. Departure - Departure Disposition: 66 [facility] DC/Xfer Clinical Impression: Pyelonephritis, PKD (polycystic kidney disease) CKD (chronic kidney disease) Qualifiers: Chronic kidney disease stage: stage 4 (severe) Qualified Code(s): N18.4 - Chronic kidney disease, stage 4 (severe) Condition: Stable Forms: PCP List
[2023-07-07 14:17] LABS: BASOPHILS # (AUTO) 0.1 10^3/uL (0.0-0.1); BASOPHILS % (AUTO) 0.6 %; EOSINOPHILS # (AUTO) 0.1 10^3/uL (0.0-0.7); EOSINOPHILS % (AUTO) 0.9 %; HCT - HEMATOCRIT 34.7 % (37.0-47.0); MEAN CORPUSCULAR HEMOGLOBIN 27.4 pg (27.0-31.0); MEAN CORPUSCULAR HGB CONC 31.7 g/dL (32.0-36.0); MEAN CORPUSCULAR VOLUME 86.5 fL (81.0-99.0); MEAN PLATELET VOLUME 9.7 fL (7.9-10.8); MONOCYTES # (AUTO) 0.4 10^3/uL (0.0-1.0); MONOCYTES % (AUTO) 4.7 %; NEUTROPHILS % (AUTO) 70.4 %; PLT - PLATELET COUNT 295 10^3/uL (130-450); RED BLOOD COUNT 4.01 10^6/uL (4.20-5.40); RED CELL DISTRIBUTION WIDTH 12.9 % (12.0-15.0); WHITE BLOOD COUNT 8.5 x10^3/uL (4.8-10.8)
[2023-07-07 14:22] LABS: BILIRUBIN,URINE NEGATIVE (NEGATIVE); GLUCOSE, URINE (UA) NEGATIVE (NEGATIVE); KETONES,URINE (UA) NEGATIVE (NEGATIVE); LEUKOCYTE ESTERASE, URINE SMALL (NEGATIVE); NITRITE,URINE NEGATIVE (NEGATIVE); OCCULT BLOOD,URINE TRACE-INTA (NEGATIVE); PROTEIN,URINE 30 mg/dL (NEGATIVE); UROBILINOGEN,URINE 0.2 (NORMAL) E.U./dL (NORMAL)
[2023-07-07] MEDS ORDERED: fentaNYL 100 MCG/2 ML VIAL IVP STA (14:42)
[2023-07-07 14:53] LABS: CLARITY,URINE SL. CLOUDY (CLEAR); HCG UR QUAL NEGATIVE
[2023-07-07 15:02] LABS: RBC,URINE 0-5 /HPF (0-5); WBC CLUMPS,URINE PRESENT
[2023-07-07 15:03] LABS: BACTERIA,URINE Moderate /HPF (None Seen); SQUAMOUS EPITHELIAL CELL,UR RARE Squamous (<= Few)
[2023-07-07] MEDS ORDERED: cefTRIAXone 1 GM in SODIUM CHLORIDE 0.9% MINIBAG 100 ML IV STA (15:05)
--- NOTE | 2023-07-07 15:30 | CT Report ---
PROCEDURE: ABDOMEN/PELVIS WO INDICATIONS: uti; ckd with worsenign renal function TECHNIQUE: A CT scan of the abdomen and pelvis was performed without the use of intravenous contrast. Images we re recorded and evaluated at appropriate window settings. Reformats: coronal and sagittal. For radiat ion dose reduction, the following was used: automated exposure control, adjustment of mA and/or kV ac cording to patient size. COMPARISON: Pelvic ultrasound 12/25/2022 FINDINGS: Image quality: Excellent. Lung bases and heart: Unremarkable. Liver: No solid mass. Gallbladder and biliary tree: No radiopaque stones or wall thickening. No biliary dilation. Spleen: No splenomegaly. Pancreas: No pancreatic ductal dilation. Adrenals: No adrenal nodule. Kidneys and ureters: Polycystic kidneys. Perceived urothelial wall thickening of the right renal pelv is, as well as periureteral fat stranding. Bowel and peritoneum: No bowel distension. No pathologic free fluid. Lymph nodes: No central or retroperitoneal adenopathy. Reactive retroperitoneal lymph nodes. Vessels: No infrarenal aortic aneurysm. PELVIS Reproductive organs: Myomatous uterus. IUD present. Bladder: No wall thickness, accounting for underdistention. Pelvic lymph nodes: No pelvic adenopathy by size criteria. Bones: No aggressive osseous abnormality. Other: No significant ventral or inguinal hernia. IMPRESSION: Persistent urothelial wall thickening of the right renal pelvis, as well as right-sided urothelial fa t stranding. Additionally, there are reactive retroperitoneal lymph nodes. Findings suggest ascending urinary tract infection. Reviewed by: Reece Gonsalez on 07/07/2023 2:28 PM [facility] Approved by: Reece Gonsalez on 07/07/2023 2:28 PM [facility] Station ID: [id number]
[2023-07-07 15:41] LABS: ALBUMIN 3.7 g/dL (3.2-5.5); ALBUMIN/GLOBULIN RATIO 1.3 (1.0-2.2); BILIRUBIN,TOTAL 0.3 mg/dL (0.2-1.0); CALCIUM 8.4 mg/dL (8.5-10.3); CREATININE 2.3 mg/dL (0.6-1.3); POTASSIUM 4.6 mmol/L (3.5-4.5); TOTAL PROTEIN 6.5 g/dL (6.4-8.9)
[2023-07-07] MEDS ORDERED: SODIUM CHLORIDE FLUSH 0.9% 10 ML SYRINGE IVP PRN (16:42)
--- NOTE | 2023-07-07 16:53 | HISTORY & PHYSICAL EXAMINATION ---
Chief Complaint - Chief Complaint Chief Complaint: sent in by PCP, abn labs, N/V History of Present Illness - Admitted From Admitted From:: ED - History Obtained From History obtained from: ED provider and the patient - History of Present Illness HPI Comment/Other: This is a 47-year-old female with a history of polycystic kidney disease, chronic kidney failure followed by [facility], has hypertension, factor V abnormality but not defect and she is not anticoagulated. The patient started having urinary symptoms about 4 days ago including dysuria and frequency and foul-smelling urine. She was started on Bactrim on 07/03/2023. Her urine culture grew out pansensitive E. coli. She was still having symptoms and started developing nausea and vomiting. The Bactrim was changed to Keflex due to her kidney disease. The dose was Keflex 3 times daily, renal based, started on 07/05/2023. She underwent lab work yesterday 07/06/2023, which showed BUN/creat of 30/3 (her usual creatinine is 2). Today she was told to go to the ER, and she did. Her labs were repeated today in the ER and show a BUN/creat of 25/2.3. She has normal WBC. Her UA is abnormal showing many bacteria and culture is indicated. She underwent CT abdomen/pelvis without contrast which shows thickening of the right renal pelvis as well as right ureter fat stranding, consistent with R pyelonephritis. The ER doctor spoke to the patient's Nephrology group who recommended the patient be admitted for IV antibiotics and to not give Lasix temporarily. She ahd cultures drawan and was given 1 g of Ceftriaxone IV. The ED provider then spoke to me. She will be admitted to the Hospitalist service to treat pyelonephritis that have failed outpatient antibiotics, and acute on CKD in a patient with polycystic kidney disease. I spoke to the patient about her CODE BLUE wishes and wants to be a History - Past Medical History Cardiovascular: reports: Hypertension Respiratory: reports: None Neuro: reports: None Endocrine/Autoimmune: reports: HyPOthyroidism GI: reports: Other INTERVENTIONAL SALE CONSULTANT: reports: Other : reports: Retention, Incontinence, Chronic bladder infection, Other (Polycystic kidney disease with chronic renal failure) HEENT: reports: None Psych: reports: Depression, Anxiety Musculoskeletal: reports: Gout MRSA Hx?: No - Past Surgical History General: reports: Other - Family & Social History Family History Comment/Other: Patient's father recently from an unspecified blood cancer. He also had factor V Leiden and DVT. Patient's mother has CLL Living arrangement: At home Living Situation: Alone Social History Notes: Patient does not use tobacco products. She rarely drinks alcohol. Generally she would use CBD - Substance History Use: Uses substance without health or social issues: Cannabis - POLST Patient has POLST: No Meds/Allgy - Home Medications Home Medications: Ambulatory Orders Medication Instructions Recorded Confirmed Amlodipine Besylate [Norvasc] 10 mg PO DAILY 06/10/20 02/13/22 Furosemide [Lasix] 40 mg PO DAILY 07/07/23 07/07/23 Losartan Potassium 25 mg PO DAILY 07/07/23 07/07/23 Ondansetron Odt [Zofran Odt] 4 mg TL Q6H PRN 07/07/23 07/07/23 carvediloL [Coreg] 12.5 mg PO BID 07/07/23 07/07/23 cephALEXin [Keflex] 500 mg PO TID 07/07/23 07/07/23 - Allergies Allergies/Adverse Reactions: Allergies Allergy/AdvReac Type Severity Reaction Status Date / Time Latex, Natural Rubber Allergy Itching Verified 07/07/23 13:53 Ringer's solution,lactated Allergy Unknown Verified 07/07/23 13:53 sesame seed Allergy Unknown Verified 07/07/23 13:53 Review of Systems - Constitutional Constitutional: reports: Poor appetite - Gastrointestinal Gastrointestinal: reports: Nausea, Vomiting - Genitourinary Genitourinary: reports: Dysuria, Frequency - All Other Systems All Other Systems: reports: Reviewed and negative Exam - Vital Signs Vital Signs: Vital Signs x48h Temp Pulse Resp BP Pulse Ox 07/07/23 16:04 65 16 125/78 100 07/07/23 15:32 66 16 133/93 H 97 07/07/23 13:49 36.9 C 78 20 140/84 H 96 - Physical Exam General Appearance: positive: No acute distress, Alert, Other (Appears disheveld, red nose) Eyes Bilateral: positive: Normal inspection, EOMI, Other (wearing glasses) ENT: positive: No signs of dehydration, Other (Tip of her nose is red) Neck: positive: Nml inspection, No JVD Respiratory: positive: No respiratory distress, Breath sounds nml Cardiovascular: positive: Regular rate & rhythm, No murmur (Distant heart sounds due to obesity/large breasts) Abdomen: positive: Non-tender, Nml bowel sounds, No distention Skin: positive: Warm, Dry, Other (Large tattoo on) Extremities: positive: Non-tender, No pedal edema Neurologic/Psychiatric: positive: Oriented x3, CN's nml (2-12), Motor nml Sepsis Event Note (H) - Evaluation Current Stage of Sepsis: Ruled out Possible source of Sepsis: positive: Genitourinary Conclusion/Plan - Problem List (1) Pyelonephritis Conclusion/Plan: As per CT imaging, she has pyelo of R kidney. No stones were seen. Plan: We will give IV ceftriaxone. Will treat dysuria with Pyridium Tylenol for fever or pain control. Await repeat urine culture results to tailor antibiotics. (2) E. coli UTI Conclusion/Plan: This was the recent outpatient urine cx result. It was a pansensitive E. coli. She was on appropriate Bactrim and Keflex however continues to have symptoms. Plan: Await repeat urine culture results to tailor antibiotics. (3) Failure of outpatient treatment Conclusion/Plan: She was on appropriate Bactrim and Keflex however, based on the last urine cx result, however continues to have symptoms and abn U/A. Plan: Given empiric IV ceftriaxone Await repeat urine culture results to tailor antibiotics. (4) CKD (chronic kidney disease) Conclusion/Plan: As per history. Her recently worsened renal function has now improved over the past 24 hours, possibly from stopping the Bactrim. Plan: Avoid nephrotoxins Hold Lasix for 24 hours Give gentle IV hydration for 24 hours Follow BMP daily Qualifiers: Chronic kidney disease stage: stage 4 (severe) Qualified Code(s): N18.4 - Chronic kidney disease, stage 4 (severe) (5) Polycystic kidney disease Conclusion/Plan: As per history. She follows with a Nephrology group who gave advice to our ER doctor today (6) Hypertension Conclusion/Plan: Plan: We will hold Lasix for 24 hours as was recommended by the Security Test Engineer Await reconciled med list to resume her other BP meds (7) Factor V Leiden Conclusion/Plan: Her father had this problem 2. Plan: I will put her on DVT prophylaxis using Heparin 5000 units subcu twice daily - Lab Results Fish Bones: 07/07/23 13:59 07/07/23 14:36 - Diagnostic Imaging Results Diagnostic Imaging Results: positive: Final report reviewed - Other Other Results/Comments: Attestation: The patient is expected to be hospitalized greater than 2 midnights and is expected to be discharged or transferred to another facility within 96 hours: Yes.
[2023-07-07] MEDS ORDERED: SODIUM CHLORIDE 0.9% 1,000 ML IV SCH (17:00)
[2023-07-07] MEDS: SODIUM CHLORIDE FLUSH 0.9% 10 ML SYRINGE IVP SCH (18:01)
[2023-07-07] MEDS: HEPARIN 5,000 UNIT/ML VIAL SUBQ SCH (20:25)
[2023-07-07] MEDS: ONDANSETRON 4 MG/2 ML VIAL IVP PRN (20:36)
[2023-07-07] MEDS ORDERED: oxyCODONE 5 MG TABLET PO ONE (21:00)
[2023-07-07] MEDS ORDERED: LORazepam 0.5 MG TABLET PO ONE (22:00)
[2023-07-07] MEDS ORDERED: HYDROmorphone 0.5 MG/0.5 ML SYRINGE IVP ONE (22:00)
[2023-07-07] MEDS: PHENAZOPYRIDINE 100 MG TABLET PO SCH (22:03)
[2023-07-08] MEDS: SODIUM CHLORIDE FLUSH 0.9% 10 ML SYRINGE IVP SCH ×3 (01:15→19:05)
[2023-07-08] MEDS: PHENAZOPYRIDINE 100 MG TABLET PO SCH ×3 (06:18→21:28)
[2023-07-08] MEDS ORDERED: HYDROmorphone 1 MG/ML CARPUJECT IVP PRN (08:46)
[2023-07-08] MEDS: HEPARIN 5,000 UNIT/ML VIAL SUBQ SCH ×2 (09:28→21:28)
[2023-07-08 09:29] LABS: BASOPHILS % (AUTO) 0.5 %; EOSINOPHILS % (AUTO) 0.2 %; HCT - HEMATOCRIT 32.2 % (37.0-47.0); HGB - HEMOGLOBIN 9.9 g/dL (12.0-16.0); LYMPHOCYTES # (AUTO) 1.8 10^3/uL (1.5-3.5); LYMPHOCYTES % (AUTO) 21.4 %; MEAN CORPUSCULAR HEMOGLOBIN 27.3 pg (27.0-31.0); MEAN CORPUSCULAR HGB CONC 30.7 g/dL (32.0-36.0); MEAN CORPUSCULAR VOLUME 88.7 fL (81.0-99.0); MEAN PLATELET VOLUME 9.7 fL (7.9-10.8); MONOCYTES # (AUTO) 0.3 10^3/uL (0.0-1.0); MONOCYTES % (AUTO) 3.4 %; NEUTROPHILS # (AUTO) 6.3 10^3/uL (1.5-6.6); NEUTROPHILS % (AUTO) 74.3 %; PLT - PLATELET COUNT 258 10^3/uL (130-450); RED BLOOD COUNT 3.63 10^6/uL (4.20-5.40); WHITE BLOOD COUNT 8.4 x10^3/uL (4.8-10.8)
[2023-07-08 09:46] LABS: CALCIUM 8.3 mg/dL (8.5-10.3); CREATININE 2.1 mg/dL (0.6-1.3); POTASSIUM 4.3 mmol/L (3.5-4.5)
[2023-07-08] MEDS: oxyCODONE 5 MG TABLET PO PRN ×2 (13:36→20:06)
[2023-07-08] MEDS: ONDANSETRON 4 MG/2 ML VIAL IVP PRN ×2 (13:36→20:06)
[2023-07-08] MEDS: cefTRIAXone 1 GM in SODIUM CHLORIDE 0.9% MINIBAG 100 ML IV SCH (13:49)
[2023-07-08] MEDS ORDERED: cefTRIAXone 1 GM in SODIUM CHLORIDE 0.9% MINIBAG 100 ML IV SCH (14:00)
--- NOTE | 2023-07-08 15:10 | PROVIDER PROGRESS NOTE ---
Assessment/Plan - Problem List (1) Pyelonephritis Assessment/Plan: (1) Pyelonephritis Conclusion/Plan: As per CT imaging, she has pyelo of R kidney. No stones were seen. Plan: We will give IV ceftriaxone. Will treat dysuria with Pyridium Tylenol for fever or pain control. Await repeat urine culture results to tailor antibiotics (2) Flank pain Assessment/Plan: Patient had 10/10 right flank pain at presentation in ER and last night. It was not relieved with Tylenol, Fentanyl, oxycodone or Morphine. Finally Dilaudid iv worked. Plan: I will have her on Tylenol for mild pain, oxycodone for moderate pain, Dilaudid IV for severe pain (3) E. coli UTI Conclusion/Plan: This was the recent outpatient urine cx result. It was a pansensitive E. coli. She was on appropriate Bactrim and Keflex however continues to have symptoms. Plan: Await repeat urine culture sens results to tailor antibiotics. (4) Failure of outpatient treatment Conclusion/Plan: She was on appropriate Bactrim and Keflex however, based on the last urine cx result, however continues to have symptoms and abn U/A. Plan: Given empiric IV ceftriaxone Await repeat urine culture sens results to tailor antibiotics. (5) CKD (chronic kidney disease) Conclusion/Plan: As per history. Her recently worsened renal function has now improved over the past 24 hours, possibly from stopping the Bactrim. She got gentle IV hydration for 24 hours Plan: Avoid nephrotoxins Holding Lasix for 24 hours, as recommended by her Crm Marketing Specialist. Lasix will be resumed tomorrow a.m. Follow BMP daily Qualifiers: Chronic kidney disease stage: stage 4 (severe) Qualified Code(s): N18.4 - Chronic kidney disease, stage 4 (severe) (6) Hypertension Conclusion/Plan: Plan: We are holding Lasix for 24 hours as was recommended by the Crm Marketing Specialist I have resumed her other BP meds. Tomorrow will restart Lasix (7) Polycystic kidney disease Conclusion/Plan: As per history. She follows with a Nephrology group who gave advice to our ER doctor (8) Factor V Leiden Conclusion/Plan: Her father had this problem 2. Plan: Cont DVT prophylaxis using Heparin 5000 units subcu twice daily - Current Meds Current Meds: Current Medications Generic Name Dose Route Start Last Admin Trade Name Freq PRN Reason Stop Dose Admin Heparin Sodium (Porcine) 5,000 unit 07/07/23 21:00 07/08/23 09:28 Heparin 5,000 Unit/Ml Vial SUBQ Not Given BID TABITHA Ceftriaxone Sodium 1 gm/ 100 mls @ 200 mls/hr 07/08/23 14:00 07/08/23 13:49 Sodium Chloride IV 200 mls/hr DAILY TABITHA Administration Ondansetron HCl 4 mg 07/07/23 16:42 07/08/23 13:36 Ondansetron 4 Mg/2 Ml Vial IVP 4 mg Q6HR PRN Administration Nausea / Vomiting Oxycodone HCl 5 mg 07/08/23 13:18 07/08/23 13:36 Oxycodone 5 Mg Tablet PO 5 mg Q6HR PRN Administration Moderate Pain (Level 4-6) Phenazopyridine HCl 100 mg 07/07/23 22:00 07/08/23 13:49 Phenazopyridine 100 Mg Tablet PO 100 mg TID TABITHA Administration Sodium Chloride 10 ml 07/07/23 17:00 07/08/23 09:28 Sodium Chloride Flush 0.9% 10 Ml Syringe IVP Not Given 0100,0900,1700 TABITHA - Lab Result Fish Bone Diagrams: 07/08/23 09:16 07/08/23 09:16 - Additional Planning My Orders: My Active Orders 07/07/23 16:42 Activity Orders [RC] Q2HR IO [RC] IOSHIFT Incentive Spirometry - RT [RC] TID Initiate Line Care Protocol [RC] QSHIFT Oxygen Therapy [RC] .PRN Vital Signs [RC] 0800,1600,0000 Acetaminophen [Tylenol] 650 mg PO Q4HR PRN Ondansetron Inj [Zofran Inj] 4 mg IVP Q6HR PRN Sodium Chloride Flush 0.9% [Normal Saline Flush 0.9%] 10 ml IVP PRN PRN Code Status [OTHERS] Routine Condition of Patient [OTHERS] Routine DVT Prophylaxis [OTHERS] Routine 07/07/23 16:44 IV Insert [RC] .ONCE 07/07/23 16:45 Initiate Line Care Protocol [RC] QSHIFT 07/07/23 17:00 Sodium Chloride Flush 0.9% [Normal Saline Flush 0.9%] 10 ml IVP 0100,0900,1700 07/07/23 21:00 Heparin [Heparin Sodium (Porcine)] 5,000 unit SUBQ BID 07/07/23 22:00 Phenazopyridine [Pyridium] 100 mg PO TID 07/08/23 08:46 HYDROmorphone 1MG CARP [Dilaudid 1Mg Carp] 1 mg IVP Q2HR PRN 07/08/23 Lunch DIET [Regular Diet] [DIET] 07/08/23 13:18 oxyCODONE [Roxicodone] 5 mg PO Q6HR PRN 07/08/23 14:00 cefTRIAXone [Rocephin] 1 gm Sodium Chloride 0.9% Minibag [Normal Saline 0.9% Minibag] 100 ml IV DAILY 07/09/23 05:00 BMP - BASIC METABOLIC PANEL [CHEM] DAILYLAB CBC - COMP BLD CT W/AUTO DIFF [HEME] DAILYLAB PHOSPHORUS [CHEM] DAILYLAB Subjective - Subjective Patient Reports: Feeling Better (She had severe 10/10 right flank pain overnight that was given escalating doses of narcotic. Finally Dilaudid worked and she only got 3 hours of sleep.) Objective Vital Signs: Vital Signs - 24 hr 07/07/23 07/07/23 07/07/23 15:32 16:04 18:11 Temperature 36.2 C L Heart Rate 66 65 Heart Rate [ 66 Brachial] Respiratory 16 16 18 Rate Blood Pressure 133/93 H 125/78 Blood Pressure 118/70 [Right Brachial artery] O2 Saturation 97 100 100 07/07/23 07/08/23 23:28 08:10 Temperature 36.4 C L 36.5 C Heart Rate Heart Rate [ 71 72 Brachial] Respiratory 18 16 Rate Blood Pressure Blood Pressure 122/72 105/56 L [Right Brachial artery] O2 Saturation 97 96 Oxygen O2 Source Room air I&O (Last 24 Hrs): Intake and Output Totals x24h 07/06/23 07/07/23 07/08/23 23:59 23:59 23:59 Intake Total 1760 500 Output Total 550 2200 Balance 1210 -1700 General: Alert, Oriented x3, No acute distress HEENT: EOMI, Mucous membr. moist/pink Neck: Supple Neuro: Alert, Non Focal Cardiovascular: Regular rate Respiratory: No respiratory distress Abdomen: Soft, No tenderness Extremities: No clubbing, No edema, No tenderness/swelling - Results Results: Laboratory Results WBC 8.4 x10^3/uL (4.8-10.8) 07/08/23 09:16 RBC 3.63 10^6/uL (4.20-5.40) L 07/08/23 09:16 Hgb 9.9 g/dL (12.0-16.0) L 07/08/23 09:16 Hct 32.2 % (37.0-47.0) L 07/08/23 09:16 MCV 88.7 fL (81.0-99.0) 07/08/23 09:16 MCH 27.3 pg (27.0-31.0) 07/08/23 09:16 MCHC 30.7 g/dL (32.0-36.0) L 07/08/23 09:16 RDW 13.0 % (12.0-15.0) 07/08/23 09:16 Plt Count 258 10^3/uL (130-450) 07/08/23 09:16 MPV 9.7 fL (7.9-10.8) 07/08/23 09:16 Neut # (Auto) 6.3 10^3/uL (1.5-6.6) 07/08/23 09:16 Lymph # (Auto) 1.8 10^3/uL (1.5-3.5) 07/08/23 09:16 [place] # (Auto) 0.3 10^3/uL (0.0-1.0) 07/08/23 09:16 Eos # (Auto) 0.0 10^3/uL (0.0-0.7) 07/08/23 09:16 Baso # (Auto) 0.0 10^3/uL (0.0-0.1) 07/08/23 09:16 Absolute Nucleated RBC 0.00 x10^3/uL 07/08/23 09:16 Nucleated RBC % 0.0 /100WBC 07/08/23 09:16 Sodium 136 mmol/L (135-145) 07/08/23 09:16 Potassium 4.3 mmol/L (3.5-4.5) 07/08/23 09:16 Chloride 106 mmol/L (101-111) 07/08/23 09:16 Carbon Dioxide 22 mmol/L (21-32) 07/08/23 09:16 Anion Gap 8.0 (6-13) 07/08/23 09:16 BUN 21 mg/dL (6-20) H 07/08/23 09:16 Creatinine 2.1 mg/dL (0.6-1.3) H 07/08/23 09:16 Estimated GFR (MDRD) 25 (>89) L 07/08/23 09:16 Glucose 128 mg/dL (74-104) H 07/08/23 09:16 Calcium 8.3 mg/dL (8.5-10.3) L 07/08/23 09:16 Total Bilirubin 0.3 mg/dL (0.2-1.0) 07/07/23 14:36 AST 8 IU/L (10-42) L 07/07/23 14:36 ALT 7 IU/L (10-60) L 07/07/23 14:36 Alkaline Phosphatase 57 IU/L (42-121) 07/07/23 14:36 Total Protein 6.5 g/dL (6.4-8.9) 07/07/23 14:36 Albumin 3.7 g/dL (3.2-5.5) 07/07/23 14:36 Globulin 2.8 g/dL (2.1-4.2) 07/07/23 14:36 Albumin/Globulin Ratio 1.3 (1.0-2.2) 07/07/23 14:36 Lipase 25 U/L (11-82) 07/07/23 14:36 Urine Color YELLOW 07/07/23 14:11 Urine Clarity SL. CLOUDY (CLEAR) 07/07/23 14:11 Urine pH 6.0 PH (5.0-7.5) 07/07/23 14:11 Ur Specific [place] 1.015 (1.002-1.030) 07/07/23 14:11 Urine Protein 30 mg/dL (NEGATIVE) H 07/07/23 14:11 Urine Glucose (UA) NEGATIVE mg/dL (NEGATIVE) 07/07/23 14:11 Urine Ketones NEGATIVE mg/dL (NEGATIVE) 07/07/23 14:11 Urine Occult Blood TRACE-INTA (NEGATIVE) 07/07/23 14:11 Urine Nitrite NEGATIVE (NEGATIVE) 07/07/23 14:11 Urine Bilirubin NEGATIVE (NEGATIVE) 07/07/23 14:11 Urine Urobilinogen 0.2 (NORMAL) E.U./dL (NORMAL) 07/07/23 14:11 Ur Leukocyte Esterase SMALL (NEGATIVE) H 07/07/23 14:11 Urine RBC 0-5 /HPF (0-5) 07/07/23 14:11 Urine WBC 6-10 /HPF (0-5) H 07/07/23 14:11 Urine WBC Clumps PRESENT 07/07/23 14:11 Ur Squamous Epith Cells RARE Squamous (<= Few) 07/07/23 14:11 Urine Bacteria Moderate /HPF (None Seen) H 07/07/23 14:11 Ur Microscopic Review INDICATED 07/07/23 14:11 Urine Culture Comments INDICATED 07/07/23 14:11 Urine HCG, Qual NEGATIVE 07/07/23 14:11 Sepsis Event Note (H) - Evaluation Current Stage of Sepsis: Ruled out Possible source of Sepsis: positive: Genitourinary
[2023-07-08] MEDS: ACETAMINOPHEN 325 MG TABLET PO PRN (21:34)
[2023-07-09] MEDS: SODIUM CHLORIDE FLUSH 0.9% 10 ML SYRINGE IVP SCH ×4 (00:28→23:44)
[2023-07-09 06:05] LABS: BASOPHILS % (AUTO) 0.5 %; EOSINOPHILS # (AUTO) 0.1 10^3/uL (0.0-0.7); EOSINOPHILS % (AUTO) 1.9 %; HCT - HEMATOCRIT 31.2 % (37.0-47.0); HGB - HEMOGLOBIN 9.6 g/dL (12.0-16.0); LYMPHOCYTES # (AUTO) 2.3 10^3/uL (1.5-3.5); LYMPHOCYTES % (AUTO) 31.1 %; MEAN CORPUSCULAR HEMOGLOBIN 27.4 pg (27.0-31.0); MEAN CORPUSCULAR HGB CONC 30.8 g/dL (32.0-36.0); MEAN CORPUSCULAR VOLUME 89.1 fL (81.0-99.0); MEAN PLATELET VOLUME 9.8 fL (7.9-10.8); MONOCYTES # (AUTO) 0.4 10^3/uL (0.0-1.0); MONOCYTES % (AUTO) 5.1 %; NEUTROPHILS # (AUTO) 4.6 10^3/uL (1.5-6.6); NEUTROPHILS % (AUTO) 61.3 %; PLT - PLATELET COUNT 246 10^3/uL (130-450); RED CELL DISTRIBUTION WIDTH 13.2 % (12.0-15.0); WHITE BLOOD COUNT 7.5 x10^3/uL (4.8-10.8)
[2023-07-09 06:15] LABS: CALCIUM 8.1 mg/dL (8.5-10.3); PHOSPHORUS 3.4 mg/dL (2.5-5.0); POTASSIUM 4.5 mmol/L (3.5-4.5)
[2023-07-09] MEDS: PHENAZOPYRIDINE 100 MG TABLET PO SCH ×3 (06:30→20:48)
[2023-07-09] MEDS: cefTRIAXone 1 GM in SODIUM CHLORIDE 0.9% MINIBAG 100 ML IV SCH (09:31)
[2023-07-09] MEDS: HEPARIN 5,000 UNIT/ML VIAL SUBQ SCH ×2 (09:31→20:49)
--- NOTE | 2023-07-09 11:57 | PROVIDER PROGRESS NOTE ---
Assessment/Plan - Problem List (1) Pyelonephritis Assessment/Plan: As per CT imaging, she has pyelo of R kidney. No stones were seen. Plan: We will give IV ceftriaxone. Will treat dysuria with Pyridium Tylenol for fever or pain control. Await final blood culture results to tailor antibiotics I updated her S.O at bedside (2) Flank pain Assessment/Plan: Patient had 10/10 right flank pain at presentation in ER and on 07/08. It was not relieved with Tylenol, Fentanyl, oxycodone or Morphine. Finally Dilaudid iv worked. Plan: I will have her on Tylenol for mild pain, oxycodone for moderate pain, Dilaudid IV for severe pain (3) E. coli UTI Conclusion/Plan: This was the recent outpatient urine cx result. It was a pansensitive E. coli. She was on appropriate Bactrim and Keflex however continued to have symptoms. The repeat urine culture grew no bacteria (labs all reviewed) In addition, her blood cultures are negative to date Plan: We will start to transition her to oral meds, and either a higher dose of Keflex or a different antibiotic will be chosen, starting 07/10, if the blood culture final result is negative (4) Failure of outpatient treatment Conclusion/Plan: She was on appropriate Bactrim and Keflex however, based on the last urine cx report of plunkett-sens E coli and not a second untreated bacteria, however she continued to have severe symptoms and abn U/A at adm. The repeat urine culture grew no bacteria (labs all reviewed) In addition, her blood cultures are negative to date Plan: Give empiric IV ceftriaxone Transition to oral antibx 07/10 (5) CKD (chronic kidney disease) Conclusion/Plan: As per history. Her recently worsened renal function has now improved over the past 24 hours, possibly from stopping the Bactrim. She got gentle IV hydration for 24 hours and we held Lasix for 24 hours, as recommended by her Charter And Tour Bus Driver. Plan: Avoid nephrotoxins Lasix is restarting today Follow BMP daily Qualifiers: Chronic kidney disease stage: stage 4 (severe) Qualified Code(s): N18.4 - Chronic kidney disease, stage 4 (severe) (6) Hypertension Conclusion/Plan: Plan: We were holding Lasix for 24 hours as was recommended by the Charter And Tour Bus Driver I have resumed her other BP meds. Today she will restart Lasix (7) Polycystic kidney disease Conclusion/Plan: As per history. She follows with a Nephrology group who gave advice to our ER doctor (8) Factor V Leiden Conclusion/Plan: Her father had this problem also. Plan: Cont DVT prophylaxis using Heparin 5000 units subcu twice daily - Current Meds Current Meds: Current Medications Generic Name Dose Route Start Last Admin Trade Name Freq PRN Reason Stop Dose Admin Acetaminophen 650 mg 07/07/23 16:42 07/08/23 21:34 Acetaminophen 325 Mg Tablet PO 650 mg Q4HR PRN Administration Pain 1 to 4, or Fever Heparin Sodium (Porcine) 5,000 unit 07/07/23 21:00 07/09/23 09:31 Heparin 5,000 Unit/Ml Vial SUBQ Not Given BID TABITHA Ceftriaxone Sodium 1 gm/ 100 mls @ 200 mls/hr 07/08/23 14:00 07/09/23 09:31 Sodium Chloride IV 200 mls/hr DAILY TABITHA Administration Ondansetron HCl 4 mg 07/07/23 16:42 07/08/23 20:06 Ondansetron 4 Mg/2 Ml Vial IVP 4 mg Q6HR PRN Administration Nausea / Vomiting Oxycodone HCl 5 mg 07/08/23 13:18 07/08/23 20:06 Oxycodone 5 Mg Tablet PO 5 mg Q6HR PRN Administration Moderate Pain (Level 4-6) Phenazopyridine HCl 100 mg 07/07/23 22:00 07/09/23 06:30 Phenazopyridine 100 Mg Tablet PO 100 mg TID TABITHA Administration Sodium Chloride 10 ml 07/07/23 17:00 07/09/23 09:31 Sodium Chloride Flush 0.9% 10 Ml Syringe IVP 10 ml 0100,0900,1700 TABITHA Administration - Lab Result Fish Bone Diagrams: 07/09/23 05:35 07/09/23 05:35 - Additional Planning My Orders: My Active Orders 07/08/23 Lunch DIET [Regular Diet] [DIET] 07/08/23 13:18 oxyCODONE [Roxicodone] 5 mg PO Q6HR PRN 07/08/23 14:00 cefTRIAXone [Rocephin] 1 gm Sodium Chloride 0.9% Minibag [Normal Saline 0.9% Minibag] 100 ml IV DAILY 07/09/23 11:00 Calcium Carbonate [Tums] 500 mg PO BID 07/09/23 11:54 Vital Signs- Do Not Awaken For [RC] HS 07/09/23 21:00 Patient Own Med 2 each PO HS 07/10/23 05:00 BMP - BASIC METABOLIC PANEL [CHEM] DAILYLAB CBC - COMP BLD CT W/AUTO DIFF [HEME] DAILYLAB Subjective - Subjective Patient Reports: Feeling Better, Abdominal Pain (Still mild to moderate abdominal pain and flank pain but able to sleep when pain is controlled on narcotics. Also without the pain she is not nauseated.) Objective Vital Signs: Vital Signs - 24 hr 07/08/23 07/09/23 07/09/23 16:00 00:00 09:26 Temperature 36.4 C L 36.5 C 36.6 C Heart Rate [ 73 63 76 Brachial] Respiratory 16 16 18 Rate Blood Pressure 116/67 102/58 L 105/61 [Right Brachial artery] O2 Saturation 97 95 96 Oxygen O2 Source Room air I&O (Last 24 Hrs): Intake and Output Totals x24h 07/07/23 07/08/23 07/09/23 23:59 23:59 23:59 Intake Total 1760 2839 830 Output Total 550 3000 900 Balance 1210 -161 -70 General: Alert, Oriented x3 HEENT: Mucous membr. moist/pink Neck: Supple, No JVD Neuro: Alert, Non Focal Cardiovascular: Regular rate, No murmurs Respiratory: No respiratory distress, Breath sounds nml Abdomen: Normal bowel sounds, Soft, No tenderness, Other (Obese) Extremities: No clubbing, No edema, Other (Trace pretibial edema) - Results Results: Laboratory Results WBC 7.5 x10^3/uL (4.8-10.8) 07/09/23 05:35 RBC 3.50 10^6/uL (4.20-5.40) L 07/09/23 05:35 Hgb 9.6 g/dL (12.0-16.0) L 07/09/23 05:35 Hct 31.2 % (37.0-47.0) L 07/09/23 05:35 MCV 89.1 fL (81.0-99.0) 07/09/23 05:35 MCH 27.4 pg (27.0-31.0) 07/09/23 05:35 MCHC 30.8 g/dL (32.0-36.0) L 07/09/23 05:35 RDW 13.2 % (12.0-15.0) 07/09/23 05:35 Plt Count 246 10^3/uL (130-450) 07/09/23 05:35 MPV 9.8 fL (7.9-10.8) 07/09/23 05:35 Neut # (Auto) 4.6 10^3/uL (1.5-6.6) 07/09/23 05:35 Lymph # (Auto) 2.3 10^3/uL (1.5-3.5) 07/09/23 05:35 [place] # (Auto) 0.4 10^3/uL (0.0-1.0) 07/09/23 05:35 Eos # (Auto) 0.1 10^3/uL (0.0-0.7) 07/09/23 05:35 Baso # (Auto) 0.0 10^3/uL (0.0-0.1) 07/09/23 05:35 Absolute Nucleated RBC 0.00 x10^3/uL 07/09/23 05:35 Nucleated RBC % 0.0 /100WBC 07/09/23 05:35 Sodium 137 mmol/L (135-145) 07/09/23 05:35 Potassium 4.5 mmol/L (3.5-4.5) 07/09/23 05:35 Chloride 107 mmol/L (101-111) 07/09/23 05:35 Carbon Dioxide 24 mmol/L (21-32) 07/09/23 05:35 Anion Gap 6.0 (6-13) 07/09/23 05:35 BUN 20 mg/dL (6-20) 07/09/23 05:35 Creatinine 2.0 mg/dL (0.6-1.3) H 07/09/23 05:35 Estimated GFR (MDRD) 26 (>89) L 07/09/23 05:35 Glucose 88 mg/dL (74-104) 07/09/23 05:35 Calcium 8.1 mg/dL (8.5-10.3) L 07/09/23 05:35 Phosphorus 3.4 mg/dL (2.5-5.0) 07/09/23 05:35 Total Bilirubin 0.3 mg/dL (0.2-1.0) 07/07/23 14:36 AST 8 IU/L (10-42) L 07/07/23 14:36 ALT 7 IU/L (10-60) L 07/07/23 14:36 Alkaline Phosphatase 57 IU/L (42-121) 07/07/23 14:36 Total Protein 6.5 g/dL (6.4-8.9) 07/07/23 14:36 Albumin 3.7 g/dL (3.2-5.5) 07/07/23 14:36 Globulin 2.8 g/dL (2.1-4.2) 07/07/23 14:36 Albumin/Globulin Ratio 1.3 (1.0-2.2) 07/07/23 14:36 Lipase 25 U/L (11-82) 07/07/23 14:36 Urine Color YELLOW 07/07/23 14:11 Urine Clarity SL. CLOUDY (CLEAR) 07/07/23 14:11 Urine pH 6.0 PH (5.0-7.5) 07/07/23 14:11 Ur Specific [place] 1.015 (1.002-1.030) 07/07/23 14:11 Urine Protein 30 mg/dL (NEGATIVE) H 07/07/23 14:11 Urine Glucose (UA) NEGATIVE mg/dL (NEGATIVE) 07/07/23 14:11 Urine Ketones NEGATIVE mg/dL (NEGATIVE) 07/07/23 14:11 Urine Occult Blood TRACE-INTA (NEGATIVE) 07/07/23 14:11 Urine Nitrite NEGATIVE (NEGATIVE) 07/07/23 14:11 Urine Bilirubin NEGATIVE (NEGATIVE) 07/07/23 14:11 Urine Urobilinogen 0.2 (NORMAL) E.U./dL (NORMAL) 07/07/23 14:11 Ur Leukocyte Esterase SMALL (NEGATIVE) H 07/07/23 14:11 Urine RBC 0-5 /HPF (0-5) 07/07/23 14:11 Urine WBC 6-10 /HPF (0-5) H 07/07/23 14:11 Urine WBC Clumps PRESENT 07/07/23 14:11 Ur Squamous Epith Cells RARE Squamous (<= Few) 07/07/23 14:11 Urine Bacteria Moderate /HPF (None Seen) H 07/07/23 14:11 Ur Microscopic Review INDICATED 07/07/23 14:11 Urine Culture Comments INDICATED 07/07/23 14:11 Urine HCG, Qual NEGATIVE 07/07/23 14:11 Sepsis Event Note (H) - Evaluation Current Stage of Sepsis: Ruled out Possible source of Sepsis: positive: Genitourinary
[2023-07-09] MEDS: CALCIUM CARBONATE CHEW 500 MG TABLET PO SCH ×2 (14:58→20:49)
--- NOTE | 2023-07-09 16:29 | PHARMACY PROGRESS NOTE ---
- Best Possible Medication History Admit Date and Time: 07/07/23 2432 Processed by: Pharmacy Medication History completed: Yes Patient Interview: Completed Secondary Source(s): Pharmacy records, Insurance records As the person ultimately responsible for medication therapy, providers are able to order a medication from an existing home medication list in [facility] via the "Reconcile Routine" prior to Confirmation of that medication by account support rep. Such practice is discouraged except when the physician, in their clinical judgment, deems that a medical need exists for a medication without regard to previous use.
[2023-07-09] MEDS: ACETAMINOPHEN 325 MG TABLET PO PRN (20:48)
[2023-07-09] MEDS: polyethylene glycoL 3350 17 GM PACKET PO SCH (20:49)
[2023-07-09] MEDS: DOCUSATE SODIUM 250 MG CAPSULE PO SCH (20:49)
[2023-07-09] MEDS: MELATONIN 3 MG PO SCH (20:49)
[2023-07-10 05:47] LABS: BASOPHILS # (AUTO) 0.1 10^3/uL (0.0-0.1); BASOPHILS % (AUTO) 0.7 %; EOSINOPHILS # (AUTO) 0.1 10^3/uL (0.0-0.7); EOSINOPHILS % (AUTO) 1.5 %; HCT - HEMATOCRIT 31.6 % (37.0-47.0); HGB - HEMOGLOBIN 9.7 g/dL (12.0-16.0); LYMPHOCYTES # (AUTO) 2.3 10^3/uL (1.5-3.5); LYMPHOCYTES % (AUTO) 27.7 %; MEAN CORPUSCULAR HEMOGLOBIN 26.9 pg (27.0-31.0); MEAN CORPUSCULAR HGB CONC 30.7 g/dL (32.0-36.0); MEAN CORPUSCULAR VOLUME 87.8 fL (81.0-99.0); MEAN PLATELET VOLUME 9.6 fL (7.9-10.8); MONOCYTES # (AUTO) 0.4 10^3/uL (0.0-1.0); MONOCYTES % (AUTO) 4.8 %; NEUTROPHILS # (AUTO) 5.5 10^3/uL (1.5-6.6); NEUTROPHILS % (AUTO) 65.1 %; PLT - PLATELET COUNT 281 10^3/uL (130-450); WHITE BLOOD COUNT 8.4 x10^3/uL (4.8-10.8)
[2023-07-10 06:03] LABS: CALCIUM 8.5 mg/dL (8.5-10.3); CREATININE 1.8 mg/dL (0.6-1.3); POTASSIUM 4.4 mmol/L (3.5-4.5)
[2023-07-10] MEDS: PHENAZOPYRIDINE 100 MG TABLET PO SCH ×3 (06:21→20:49)
[2023-07-10] MEDS: DOCUSATE SODIUM 250 MG CAPSULE PO SCH (08:20)
[2023-07-10] MEDS: polyethylene glycoL 3350 17 GM PACKET PO SCH (08:20)
[2023-07-10] MEDS: CALCIUM CARBONATE CHEW 500 MG TABLET PO SCH ×2 (08:20→20:48)
[2023-07-10] MEDS: cefTRIAXone 1 GM in SODIUM CHLORIDE 0.9% MINIBAG 100 ML IV SCH (08:21)
[2023-07-10] MEDS: HEPARIN 5,000 UNIT/ML VIAL SUBQ SCH ×2 (08:21→20:49)
[2023-07-10] MEDS: SODIUM CHLORIDE FLUSH 0.9% 10 ML SYRINGE IVP SCH ×2 (08:22→20:49)
[2023-07-10] MEDS ORDERED: levoFLOXacin 250 MG TABLET PO SCH (10:00)
--- NOTE | 2023-07-10 17:07 | PROVIDER PROGRESS NOTE ---
Progress Note July 10, 2023 5:15 PM She feels okay. She is already disabled, spends most of her time in a sedentary life "within 4 c[address]". So this is not much different than what she usually does. She is just more tired than usual. She is taking opioids for pain management has not a BM since July 06. But overall she is improving and that white cell count has remained normal. She has not had a fever. Initial blood cultures were positive. And repeat blood cultures have been negative, and urine culture was negative. Exam: Temperature is 36.8, heart rate 69, blood pressure 124/76, respirations 20, 96% on room air. Pleasant white female who looks stated age. No acute distress. Supple neck Clear lungs without any increased respiratory effort Regular rate and rhythm Abdomen is soft, nontender Extremities mobile Lab: White cell count 8.4. Has been normal since admission. Hemoglobin is drifted down to 9.7 from 11 on admission. Hematocrit is 31.6. Platelets 281. BMP is normal. Creatinine has been slowly coming down from the 2.3 on admission and is 1.8 today. Her baseline appears to be 1.6-1.7. July 03 urine culture was E. coli. July 07 blood cultures are negative, and urine culture was negative Assessment/Plan - Problem List (1) Pyelonephritis Assessment/Plan: As per CT imaging, she has pyelo of R kidney. No stones were seen. Throughout her stay no white cell count was elevated. No fever. Main complaints are fatigue and flank pain. Identification was unable to be done since cultures were negative. It was a June 25 culture that led us to think E. coli. Plan: Change IV ceftriaxone to p.o. Cipro. She is completed 4 days of ceftriaxone. Will treat dysuria with Pyridium Tylenol for fever or pain control. If she is afebrile and has no WBC, she can be dc'd tomorrow (2) Flank pain Assessment/Plan: Patient had 10/10 right flank pain at presentation in ER and on 07/08. It was not relieved with Tylenol, Fentanyl, oxycodone or Morphine. Finally Dilaudid iv worked. Pain has been controlled with Tylenol for mild pain, oxycodone for moderate pain, and Dilaudid IV for severe pain. She has been constipated because of that and I did warn her that she may need to de-escalate. So far she has not had to have any Dilaudid since she was admitted. She has had 2 doses of oxycodone on the third and none on the fourth. (3) E. coli UTI Conclusion/Plan: This was the recent outpatient urine cx result. It was a pansensitive E. coli. She was on appropriate Bactrim and Keflex however continued to have symptoms. The repeat urine culture grew no bacteria (labs all reviewed) In addition, her blood cultures are negative to date Plan: change to po levaquin today (4) Failure of outpatient treatment Conclusion/Plan: She was on appropriate Bactrim and Keflex however, based on the last urine cx report of plunkett-sens E coli and not a second untreated bacteria, however she continued to have severe symptoms and abn U/A at adm. The repeat urine culture grew no bacteria (labs all reviewed) In addition, her blood cultures are negative to date Plan: oral abx today (5) CKD (chronic kidney disease) Conclusion/Plan: As per history. Her recently worsened renal function has now improved over the past 24 hours, possibly from stopping the Bactrim. She got gentle IV hydration for 24 hours and we held Lasix for 24 hours, as recommended by her [employer] Senior Manager. Plan: Avoid nephrotoxins Lasix has restarted 07/09 and creat stable. Follow BMP daily Qualifiers: Chronic kidney disease stage: stage 4 (severe) Qualified Code(s): N18.4 - Chronic kidney disease, stage 4 (severe) (6) Hypertension Conclusion/Plan: Plan: We were held Lasix for 24 hours as was recommended by the [employer] Senior Manager and her other BP meds were resumed. Lasix resumed 07/09. Creat stable today (7) Polycystic kidney disease Conclusion/Plan: As per history. She follows with a Nephrology group who gave advice to our ER doctor (8) Factor V Leiden Conclusion/Plan: Her father had this problem also. Plan: Cont DVT prophylaxis using Heparin 5000 units subcu twice daily
[2023-07-10] MEDS: ACETAMINOPHEN 325 MG TABLET PO PRN (20:48)
[2023-07-10] MEDS: MELATONIN 3 MG PO SCH (20:49)
[2023-07-11] MEDS: SODIUM CHLORIDE FLUSH 0.9% 10 ML SYRINGE IVP SCH ×2 (00:02→08:07)
[2023-07-11] MEDS: PHENAZOPYRIDINE 100 MG TABLET PO SCH (06:33)
[2023-07-11] MEDS: CALCIUM CARBONATE CHEW 500 MG TABLET PO SCH (08:06)
[2023-07-11] MEDS: polyethylene glycoL 3350 17 GM PACKET PO SCH (08:06)
[2023-07-11] MEDS: DOCUSATE SODIUM 250 MG CAPSULE PO SCH (08:06)
[2023-07-11] MEDS: HEPARIN 5,000 UNIT/ML VIAL SUBQ SCH (08:06)
[2023-07-11] MEDS ORDERED: levoFLOXacin 250 MG TABLET PO SCH ×2 (09:00→15:00)
--- NOTE | 2023-07-11 09:19 | Discharge Plan ---
Discharge Plan Problem Reviewed?: Yes Disposition: Home, Self Care Condition: Stable Prescriptions: levoFLOXacin [Levaquin] 750 mg PO DAILY #9 tab Diet: Regular Activity Restrictions: Activity as Tolerated Shower Restrictions: No Driving Restrictions: No Health Concerns: You presented to our hospital because of painful urination, frequent urination, and a already treated urinary tract infection in the outpatient setting. You had already received Bactrim and Keflex. In spite of those antibiotics you are still having symptoms. In our emergency room we feel that you had failed outpatient treatment and your evaluation showed you to have a right pyelonephritis which means that the bladder infection had gone into your right kidney. Fortunately you did not have a fever or elevated white cell count with this. Plan of Treatment: Here we treated you with broader spectrum antibiotics for urinary tract infectio n. Unfortunately your cultures grew nothing. However you did respond to our treatment. You are now going home on Levaquin and will take 250 mg tablets, 3 tablets once a day for the next 3 days. While you are on Levaquin, please take a [id number] probiotic every day. You will take it as long as you are on the Levaquin. Please see your primary care provider in follow-up. Care Goals: To complete therapy for UTI Assessment: Patient is alert, oriented. She is sedentary and has 24/7 caregivers in the form of her partner and paid caregiver No Smoking: If you smoke, Please STOP! Call for help.
[2023-07-11] MEDS: ONDANSETRON 4 MG/2 ML VIAL IVP PRN (10:07)
--- NOTE | 2023-07-11 11:16 | DISCHARGE SUMMARY ---
Discharge Summary Admit Date: 07/07/23 Discharge Date: 07/11/23 Discharging Provider: Janneth Benítez MD Primary Care Provider: REFUGIO Bhatt Code Status: Attempt Resuscitation Condition at Discharge: Stable Discharge Disposition: 01 Home, Self Care - DIAGNOSES Discharge Diagnoses with Status of Each Condition: 1. Pyelonephritis 2. E. coli UTI 3. Failure of outpatient management 4. Chronic kidney disease 5. Hypertension 6. Polycystic kidney disease 7. Factor V Leiden deficiency - HPI History of Present Illness: This is a 47-year-old female with a history of polycystic kidney disease, chronic kidney failure followed by [facility], has hypertension, factor V abnormality but not defect and she is not anticoagulated. The patient started having urinary symptoms about 4 days ago including dysuria and frequency and foul-smelling urine. She was started on Bactrim on 07/03/2023. Her urine culture grew out pansensitive E. coli. She was still having symptoms and started developing nausea and vomiting. The Bactrim was changed to Keflex due to her kidney disease. The dose was Keflex 3 times daily, renal based, started on 07/05/2023. She underwent lab work yesterday 07/06/2023, which showed BUN/creat of 30/3 (her usual creatinine is 2). Today she was told to go to the ER, and she did. Her labs were repeated today in the ER and show a BUN/creat of 25/2.3. She has normal WBC. Her UA is abnormal showing many bacteria and culture is indicated. She underwent CT abdomen/pelvis without contrast which shows thickening of the right renal pelvis as well as right ureter fat stranding, consistent with R pyelonephritis. The ER doctor spoke to the patient's Nephrology group who recommended the patient be admitted for IV antibiotics and to not give Lasix temporarily. She ahd cultures drawan and was given 1 g of Ceftriaxone IV. The ED provider then spoke to me. She will be admitted to the Hospitalist service to treat pyelonephritis that have failed outpatient antibiotics, and acute on CKD in a patient with polycystic kidney disease. I spoke to the patient about her [employer] wishes and wants to be a - Past Medical History Cardiovascular: reports: Hypertension Respiratory: reports: None Neuro: reports: None Endocrine/Autoimmune: reports: HyPOthyroidism GI: reports: Other [employer]: reports: Other : reports: Retention, Incontinence, Chronic bladder infection, Other (Polycys tic kidney disease with chronic renal failure) HEENT: reports: None Psych: reports: Depression, Anxiety Musculoskeletal: reports: Gout MRSA Hx?: No - Past Surgical History General: reports: Other - CONSULTS | PROCEDURES Procedures: Abdomen pelvis CT with persistent urothelial wall thickening of the right renal pelvis as well as right-sided urothelial fat stranding. Reactive retroperitoneal lymph nodes. Ascending UTI. Polycystic kidneys. Blood cultures July 07 without growth Urine culture July 07 without growth - HOSPITAL COURSE Hospital Course: She is already disabled and spends most of her time in with a sedentary lifestyle. She comments that she is already used to living "within 4 c[address]" when I ask if she is doing okay within the hospital. She improved with appetite, and was able to get out of bed. White cell count remained normal and she did not have a fever during her stay. Initial blood cultures were positive with June 25 cultures. Repeat blood cultures have been negative. Repeat urine cultures been negative. She was felt to have failure of outpatient treatment as the reason she was admitted and given IV antibiotics. E. coli was the previous bacteria. Chronic kidney disease remained stable.acute worsening improved after IV fluids and antibiotics. Hypertension was treated with resuming her blood pressure medicines. Lasix was held temporarily because of slight worsening of renal function temporarily. Polycystic kidney disease is noted and we have asked her to follow-up with the nephrology group. Her factor V Leiden deficiency was treated with DVT prophylaxis using heparin. Greater than 30 minutes was spent coordinating discharge We are asking her to continue her antibiotic therapy at home in the form of Levaquin. She will complete antibiotic therapy. We have asked her to follow-up with her primary care provider. 47-year-old female, moderately overweight at 6 foot tall, 121 kg. Pleasant, alert, oriented. No flank pain. Clear lungs. Benign abdominal exam. Trace edema around her ankles. She is able to get up to walk to the bathroom with standby assist. This document was made in part using voice recognition software. While efforts are made to proofread this document, sound alike and grammatical errors may occur. - ALLERGIES Allergies/Adverse Reactions: Allergies Allergy/AdvReac Type Severity Reaction Status Date / Time Latex, Natural Rubber Allergy Itching Verified 07/07/23 13:53 Ringer's solution,lactated Allergy Unknown Verified 07/07/23 13:53 sesame seed Allergy Unknown Verified 07/07/23 13:53 - MEDICATIONS Home Medications: Ambulatory Orders Medication Instructions Recorded Confirmed Amlodipine Besylate [Norvasc] 10 mg PO DAILY 06/10/20 07/08/23 Furosemide [Lasix] 40 mg PO DAILY 07/07/23 07/07/23 Losartan Potassium 25 mg PO DAILY 07/07/23 07/07/23 Ondansetron Odt [Zofran Odt] 4 mg TL Q8HR PRN 07/07/23 07/09/23 carvediloL [Coreg] 12.5 mg PO BID 07/07/23 07/07/23 Melatonin 6 mg PO HS 07/09/23 07/09/23 levoFLOXacin [Levaquin] 750 mg PO DAILY #9 tab 07/11/23 - LABS Result Diagrams: 07/10/23 05:31 07/10/23 05:31 - SEPSIS Current Stage of Sepsis: Ruled out Possible source of Sepsis: Genitourinary
[2023-07-11 12:51] VITALS: BP 140/74; O2SAT 96
== END 2023-07-11 12:00 | disposition home or self-care (01) | DRG 690 ==
LOC: ED 13:35 → MS2 16:42
PROVIDERS: ADMIT Internal Medicine; ATTEND Specialist
DX: N12 Tubulo-interstitial nephritis, not specified as acute or chronic (principal); Q61.3 Polycystic kidney, unspecified; D68.2 Hereditary deficiency of other clotting factors; B96.20 Unspecified Escherichia coli [E. coli] as the cause of diseases classified elsewhere; Z32.02 Encounter for pregnancy test, result negative; I12.9 Hypertensive chronic kidney disease with stage 1 through stage 4 chronic kidney disease, or unspecified chronic kidney disease; N17.9 Acute kidney failure, unspecified; E03.9 Hypothyroidism, unspecified; F32.A Depression, unspecified; F41.9 Anxiety disorder, unspecified; N18.4 Chronic kidney disease, stage 4 (severe); Z79.899 Other long term (current) drug therapy
CPT/HCPCS: 36415; 74176; 80048; 80053; 81001; 81025; 83690; 84100; 85025; 87040; 87086; 96365; 96375; 99285; A9270; J1170; 81003

== ENCOUNTER 2023-09-04 12:37 | Outpatient (CLI) | payer MEDICARE, BC, MEDICAID ==
[2023-09-04 16:27] LABS: ALBUMIN 4.2 g/dL (3.2-5.5); ALKALINE PHOSPHATASE 44 IU/L (42-121); ALT ALANINE AMINOTRANSFERASE 13 IU/L (10-60); AST ASPARTATE AMINOTRANSFERASE 15 IU/L (10-42); BILIRUBIN,DIRECT < 0.10 mg/dL (0.03-0.18); BILIRUBIN,TOTAL 0.3 mg/dL (0.2-1.0); BUN - BLOOD UREA NITROGEN 25 mg/dL (6-20); CALCIUM 9.3 mg/dL (8.5-10.3); CARBON DIOXIDE - CO2 28 mmol/L (21-32); CHLORIDE 105 mmol/L (101-111); CREATININE 2.2 mg/dL (0.6-1.3); GFR - MDRD 24 (>89); GLUCOSE 102 mg/dL (74-104); PHOSPHORUS 3.1 mg/dL (2.5-5.0); POTASSIUM 4.3 mmol/L (3.5-4.5); SODIUM 138 mmol/L (135-145); TOTAL PROTEIN 7.2 g/dL (6.4-8.9)
[2023-09-04 16:39] LABS: CREATININE,URINE 140.4 mg/dL; PROTEIN/CREATININE RATIO,URINE 0.2 (<=0.2)
== END 2023-09-04 12:38 | disposition home or self-care (01) ==
LOC: LAB.S 12:37
PROVIDERS: ATTEND Internal Medicine Nephrology
DX: N18.4 Chronic kidney disease, stage 4 (severe) (principal)
CPT/HCPCS: 36415; 80069; 80076; 82570; 84156